=== PATIENT | female | born 1970 | race Caucasian/White ===

== ENCOUNTER 2024-03-29 07:58 | Outpatient (OUT) | payer BC, SELFPAY ==
[2024-03-29 08:25] LABS: Basophils Percent Auto 0.3 % (0.2-2.0); Eosinophils Absolute Auto 0.1 10^3/uL (0.0-0.7); Eosinophils Percent Auto 1.9 % (0.9-7.0); Hemoglobin 13.1 g/dL (12.0-16.0); Immature Granulocytes Abs Auto 0.02 10^3/uL (0.00-0.03); Immature Granulocytes Pct Auto 0.3 % (0.0-0.5); Lymphocytes Absolute Auto 1.5 10^3/uL (1.2-3.8); Mean Corpuscular HGB Conc 35.4 g/dL (29.9-35.2); Mean Corpuscular Hemoglobin 33.1 pg (26.7-34.0); Mean Corpuscular Volume 93.4 fL (81.0-99.0); Mean Platelet Volume 8.6 fL (9.5-13.5); Monocytes Absolute Auto 0.4 10^3/uL (0.3-0.8); Monocytes Percent Auto 7.6 % (1.7-12.0); Neutrophils Absolute Auto 3.7 10^3/uL (1.4-6.5); Neutrophils Percent Auto 63.9 % (43.0-75.0); Platelet Count 271 10^3/uL (150-450); Red Blood Count 3.96 10^6/uL (4.20-5.40); White Blood Count 5.8 10^3/uL (4.0-11.0)
[2024-03-29 08:44] LABS: Alanine Aminotransferase 50 U/L (14-59); Albumin Globulin Ratio 1.1; Albumin Level 4.1 g/dL (3.4-5.0); Alkaline Phosphatase 68 U/L (46-116); Aspartate Amino Transferase 39 U/L (15-37); BUN Creatinine Ratio 18.9; Bilirubin Total 1.6 mg/dL (0.2-1.0); Calcium 9.6 mg/dL (8.5-10.1); Carbon Dioxide 28.9 mmol/L (21.0-32.0); Chloride 95 mmol/L (98-107); Chol HDL Ratio 2.6; Cholesterol 184 mg/dL (<=200); Estimated GFR (African America >60 (>=60); Estimated GFR (Non-African Ame >60 (>=60); Globulin 3.9 g/dL; Glucose 120 mg/dL (74-106); HDL Cholesterol 72 mg/dL (40-60); Potassium 3.9 mmol/L (3.5-5.1); Sodium 135 mmol/L (136-145); Triglycerides 119 mg/dL (<=150); VLDL CHOLESTEROL 23.8 mg/dL
== END 2024-03-29 07:59 | disposition home or self-care (01) ==
PROVIDERS: Visit Provider Internal Medicine
DX: E78.49 Other hyperlipidemia (principal); I10 Essential (primary) hypertension
CPT/HCPCS: 36415; 80053; 80061; 85025

== ENCOUNTER 2024-04-04 09:30 | Outpatient (OUT) | payer BC, SELFPAY ==
[2024-04-04 10:09] LABS: Estimated Average Glucose 111 mg/dL; Glycohemoglobin A1C 5.5 % (4.5-6.2)
== END 2024-04-04 09:31 | disposition home or self-care (01) ==
LOC: LAB 09:30
PROVIDERS: PCP Internal Medicine; Visit Provider Internal Medicine
DX: R73.09 Other abnormal glucose (principal)
CPT/HCPCS: 36415; 83036

== ENCOUNTER 2024-08-29 02:04 | Emergency (ER) | payer BC, SELFPAY ==
[2024-08-29] VITALS (18 sets, daily range): BP systolic 104–107; BP diastolic 67–68; PULSE 59–83; TEMP 37; O2SAT 96–100; BMI 27.8
--- OUTSIDE RECORDS SUMMARY | 2024-08-29 02:23 | XMS_ITS | CCD ---
Author Organization [facility] Care Team Providers Care Instructor Trainer Canine Service Name Role Phone Angi Park Primary Care Provider CARLOS LOPES Referring Unavailable ANGI PARK Primary Care Unavailable SHAIKH MONTOYA Admitting Unavailable VIVIAN, DR ANGI Harrison Primary Care Unavailable SHAIKH MONTOYA Attending Unavailable SHAIKH MONTOYA Consulting Unavailable DR ANGI PARK Primary Care Unavailable AICHHOLZ, FILM OR TAPE LIBRARIAN GERRY Attending Unavailable AICHHOLZ, FILM OR TAPE LIBRARIAN GERRY Consulting Unavailable AICHHOLZ, FILM OR TAPE LIBRARIAN GERRY Admitting Unavailable DR ANGI PARK Primary Care Unavailable SHAIKH MONTOYA Attending Unavailable SHAIKH MONTOYA Consulting Unavailable SHAIKH MONTOYA Admitting Unavailable SHAIKH MONTOYA Primary Care Physician Shaikh Montoya Attending Unavailable Shaikh Montoya Primary Care Unavailable Shaikh Montoya Admitting Unavailable MD Miguelito Montoya Primary Care Provider [phone] MD Miguelito Montoya Attending Provider SHAIKH MONTOYA Attending Unavailable SHAIKH MONTOYA Attending Unavailable SHAIKH MONTOYA Attending Unavailable NORMA VIRK Attending UnavailNORMA Montalvo Attending UnavailShaikh Horton MD Primary Care Provider [phone] MS. NORMA VIRK Primary Care P tong Nkechi Read Referring Unavailable Nkechi Read Attending Unavailable Nkechi Read Admitting Unavailable NORMA VIRK Primary Care Unavailabl e Allergies Allergy Classification Reported Allergen(s) Allergy Type Date of Onset Reaction(s) Facility (2 sources) Codeine; Translations: [codeine] Drug Allergy [facility] Repository (6 sources) Codeine; Translations: [codeine] Drug Allergy Dizziness (finding), Syncope (disorder), Dizziness, Other, Unknown [facility] Medications Current Medications Medication Drug Class(es) Dates Sig (Normalized) Sig (Original) Caltrate 600 with D (3 sources) Start: 01-27-2011 take 1 tablet by mouth once daily Caltrate 600 with D Oral, Daily, tab(s), Refill(s) 0 Start Date: 01/27/11 Status: Ordered Centrum Women's (3 sources) Start: 01-27-2011 Centrum Women's Oral, Daily, Refill(s) 0 Start Date: 01/27/11 Status: Ordered Fish Oil oral capsule (3 sources) Start: 01-27-2011 Fish Oil oral capsule Refill(s) 0 Start Date: 01/27/11 Status: Ordered folic acid 0.4 mg oral tablet (3 sources) Start: 01-27-2011 folic acid 0.4 mg oral tablet Refills(s) 0 Start Date: 01/27/11 Status: Ordered hydroCHLOROthiazide / Lisinopril (3 sources) Thiazide Diuretic, Angiotensin Converting Enzyme Inhibitor Start: 01-27-2011 take 1 tablet by mouth once daily hydrochlorothia zide-lisinopril 12.5 mg-10 mg Oral 1 tab(s), Oral, Daily, tab(s), Refill(s) 0 Start Date: 01/27/11 Status: Ordered Start: 01-27-2011 take 1 tablet by laurence once daily hydrochlorothiazide-lisinopril 12.5 mg-1 0 mg Oral 1 tab(s), Oral, Daily, tab(s), Refill(s) 0 Start Date: 01/27/11 Status: Ordered hydroCHLOROthiazide 25 mg / losartan potassium 100 mg oral tablet (3 sources) Thiazide Diuretic, Angiotensin 2 Receptor Gokul Start: 02-13-2024 take 1 tablet by mouth once daily losartan-hydroCHLOROthiazide (Hyzaar) 100-25 MG tablet Indications: Primary hypertension (CMS/HCC) TAKE 1 TABLET BY MOUTH DAILY 90 tablet 1 02/13/2024 Active phentermine hydrochloride 37.5 mg oral tablet (5 sources) Sympathomimetic Amine Anorectic Start: 07-16-2024 End: 09-15-2024 take 1 tablet by mouth in the morning phentermine (Adipex-P) 37.5 MG tablet Indications: Class 1 obesity due to excess calories without serious comorbidity with body mass index (BMI) of 32.0 to 32.9 in adult Take 1 tablet (37.5 mg) by mouth in the morning. Take before meals. Do not start before August 16, 2024. 30 tablet 08/16/2024 09/15/2024 Active simvastatin 20 mg oral tablet (3 sources) HMG-CoA Reductase Inhibitor Start: 01-23-2024 take 1 tablet by mouth at bedtime simvastatin (Zocor) 20 MG tablet Take 20 mg by mouth at bedtime 01/23/2024 Active Problems Active Problems Problem Classification Problem Date Documented Da te Episodic/Chronic Abdominal pain (3 sources) C/O pelvic pain 01-27-2011 Episodic Disorders of lipid metabolism (8 sources) Hyperlipidemia, unspecified; Translations: [Hyperlipidemia] Onset: 12-12-2021 Chronic Essential hypertension (11 sources) Essential (primary) hypertension; Translations: [Hypertensive disorder] Onset: 09-27-2021 Chronic Menstrual disorders (3 sources) Menorrhagia 01-02-2014 Chronic Osteoarthritis (1 source) Osteoarthritis of left patellofemoral joint; Translations: [Osteoarthritis of left patellofemoral joint] Other gastrointestinal disorders (3 sources) Pelvic mass 01-27-2011 Episodic Other nutritional; endocrine; and metabolic disorders (7 sources) Obesity caused by energy imbalance; Translations: [Class 1 obesity due to excess calories without serious comorbidity with body mass index (BMI) of 30.0 to 30.9 in adult] Onset: 03-10-2024 04-17-2024 Chronic Other screening for suspected conditions (not mental disorders or infectious disease) (1 source) Encounter for screening for diabetes mellitus; Translations: [ENCOUNTER FOR SCREENING FOR DM] Onset: 09-27-2021 Episodic Past or Other Problems Problem Classification Problem Date Documented Da te Episodic/Chronic Other ear and sense organ disorders (3 sources) Ear sensations - finding; Translations: [Other specified disorders of right ear] Onset: 03-10-2024 03-10-2024 Episodic Results Test Name Value Interpretation Reference Range Facility [facility] Mamm Screen w/CAD if perf and 3D [place] 08-16-2024 MA Mamm Screen w/CAD if perf and 3D [place] Exam Date/Time: 08/15/2024 08:48 EDT Reason for Exam: Z12.31 Report IMPRESSION: BIRADS 1 NEGATIVE, NORMAL INTERVAL FOLLOW-UP Follow-up: 12 MONTH RECALL Density: Category B - Scattered areas of fibroglandular density. Vascular calcifications: Absent. EXAM: [place] Mamm Screen w/CAD if perf and 3D [place] DATE: 08/15/2024 7:27 AM CLINICAL HISTORY: Z12.31. COMPARISONS: 08/04/2023, 05/12/2022, 12/09/2020, and 08/11/2019. TECHNIQUE: Routine full-field digital mammograms and 3D breast tomosynthesis were obtained of both breasts. FINDINGS: There are no developing densities, suspicious microcalcifications, or areas of architectural distortion identified on the current study. No significant changes are identified from the prior studies, given differences in technique and positioning. Dense Breast: No. CAD analysis was performed and used in the interpretation. Board Certified Radiologists. Accredited by the ACR and FDA. MAMMOGRAPHY IS VERY IMPORTANT TO YOUR HEALTH. THE CURRENT [employer] GUIDELINES RECOMMENDS ANNUAL MAMMOGRAPHY BEGINNING AT AGE 40. THIS FACILITY UTILIZES A REMINDER SYSTEM TO ENSURE ALL PATIENTS RECEIVE REMINDER NOTIFICATIONS AT THE APPROPRIATE TIME BASED ON THE RECOMMENDATIONS OF THIS EXAM. Report Ordering Provider: Nkechi Read FINAL REPORT Dictated: 08/16/2024 9:02 am Dev Denis MD Signed (Electronic Signature): 08/16/2024 9:02 am Signed by: Dev Denis MD Transcribed by: LIZANDRO Technologist: [facility] Assessment: BI-RADS Category 1-Negative Recommendation: Normal interval follow-up Normal [facility] Albumin [Mass/volume] in Ser um or PlasmaOrdered By: Shaikh Jan on 11-02-2022 Albumin [Mass/Vol] 4.3 g/dL 3.2-5.5 [place] Basophils Auto (Bld) [#/Vol] Ordered By: Shaikh Jan on 11-02-2022 Basophils (Bld) [#/Vol] 0.0 10*3/uL 0.0-0.2 [facility] Basophils/100 WBC Auto (Bld) Ordered By: Shaikh Jan on 11-02-2022 Basophils/100 WBC (Bld) 0.5 % . F [facility] Cholesterol [Mass/volume] in Serum or PlasmaOrdered By: Shaikh Jan on 11-02-2022 Cholesterol [Mass/Vol] 157 mg/dL 140-200 [facility] Comment on above: Chol less than 200 m g/dl low riskChol 201-239 mg/dl borderline riskChol 240 mg/dl and greater high risk Cholesterol in LDL Calc [Mas s/Vol]Ordered By: Shaikh Jan on 11-02-2022 Cholesterol in LDL [Mass/Vol] 84 mg/dL 0-100 [facility] Comment on above: LDL ATP III CLASSIFI CATIONLDL less than 100 mg/dL OptimalLDL 100-129 mg/dL Near or above optimalLDL 130-159 mg/dL Borderline highLDL 160-189 mg/dL HighLDL greater than 189 mg/dL Very high Cholesterol in VLDL Calc [Ma ss/Vol]Ordered By: Shaikh Jan on 11-02-2022 Cholesterol in VLDL [Mass/Vol] 22 mg/dL [facility] Complete Blood Count Auto Di ffon 11-02-2022 Basophils (Bld) [#/Vol] 0.0 10*3/uL Normal 0.0-0.2 [facility] Comment on above: Result Comment: PERF ORMED BY: [facility] [address] [place] [address] PATHOLOGIST CONTRACTING SUPPORT SPECIALIST NAKUL DOWELL M.D. Performed By: #### L IPID, CBC, CMP #### [facility] [address] [place] [address] [place] Basophils/100 WBC (Bld) 0.5 % Normal . F [facility] Comment on above: Performed By: #### L IPID, CBC, CMP #### [facility] [address] [place] [address] [place] Eosinophils (Bld) [#/Vol] 0.1 10*3/uL Normal 0.0-0.45 [facility] Comment on above: Performed By: #### L IPID, CBC, CMP #### [address] Eosinophils/100 WBC (Bld) 1.2 % Normal . [facility] Comment on above: Performed By: #### L IPID, CBC, CMP #### [address] Erythrocyte distribution width (RBC) [Ratio] 12.7 % Normal 11.9-15.3 [facility] Comment on above: Performed By: #### L IPID, CBC, CMP #### [address] Hematocrit (Bld) [Volume fraction] 40.2 % Normal 34.0-46.4 [facility] Comment on above: Performed By: #### L IPID, CBC, CMP #### [address] Hemoglobin (Bld) [Mass/Vol] 13.8 g/dL Normal 11.8-15.4 [facility] Comment on above: Performed By: #### L IPID, CBC, CMP #### [address] Lymphocytes (Bld) [#/Vol] 3.3 10*3/uL Normal 1.00-4.8 [facility] Comment on above: Performed By: #### L IPID, CBC, CMP #### [address] Lymphocytes/100 WBC (Bld) 41.8 % Normal . [facility] Comment on above: Performed By: #### L IPID, CBC, CMP #### [address] MCH (RBC) [Entitic mass] 32.9 pg Normal 24.7-34.3 [facility] Comment on above: Performed By: #### L IPID, CBC, CMP #### [address] MCV (RBC) [Entitic vol] 96.1 fL Normal 80-[address] [facility] Comment on above: Performed By: #### L IPID, CBC, CMP #### [address] Mean Corpuscular HGB Conc 34.2 g/dL Normal 32.0-35.0 [facility] Comment on above: Performed By: #### L IPID, CBC, CMP #### [address] Monocytes (Bld) [#/Vol] 0.5 10*3/uL Normal 0.0-0.8 [facility] Comment on above: Performed By: #### L IPID, CBC, CMP #### [address] Monocytes/100 WBC (Bld) 6.3 % Normal . F [facility] Comment on above: Performed By: #### L IPID, CBC, CMP #### [address] Neutrophils (Bld) [#/Vol] 4.0 10*3/uL Normal 1.8-7.7 [facility] Comment on above: Performed By: #### L IPID, CBC, CMP #### [address] Neutrophils/100 WBC (Bld) 50.2 % Normal . [facility] Comment on above: Performed By: #### L IPID, CBC, CMP #### [address] NRBC% 0.1 /100{WBC} Normal 0-0.5 [facility] Comment on above: Performed By: #### L IPID, CBC, CMP #### [address] Platelet mean volume (Bld) [Entitic vol] 7.0 fL Normal 6.3-10.7 [facility] Comment on above: Performed By: #### L IPID, CBC, CMP #### [address] Platelets (Bld) [#/Vol] 307 10*3/uL Normal 150-450 [facility] Comment on above: Performed By: #### L IPID, CBC, CMP #### [address] RBC (Bld) [#/Vol] 4.18 10*6/uL Normal 3.60-5.00 [facility] Comment on above: Performed By: #### L IPID, CBC, CMP #### [address] WBC (Bld) [#/Vol] 7.9 10*3/uL Normal 3.8-11.6 [place] Comment on above: Performed By: #### L IPID, CBC, CMP #### [address] Comprehensive Metabolic Pane kenzie 11-02-2022 Albumin [Mass/Vol] 4.3 g/dL Normal 3.2-5.5 [place] Comment on above: Performed By: #### L IPID, CBC, CMP #### [address] Albumin/Globulin [Mass ratio] 1.8 {ratio} Normal [facility] Comment on above: Performed By: #### L IPID, CBC, CMP #### [address] ALP [Catalytic activity/Vol] 61 U/L Normal 32-92 [facility] Comment on above: Performed By: #### L IPID, CBC, CMP #### [address] ALT [Catalytic activity/Vol] 32 U/L Normal 10-60 [facility] Comment on above: Performed By: #### L IPID, CBC, CMP #### [address] Anion gap [Moles/Vol] 13.1 mmol/L Normal 6.0-15.0 [facility] Comment on above: Performed By: #### L IPID, CBC, CMP #### [facility] [address] [place] [id number] [place] AST [Catalytic activity/Vol] 25 U/L Normal 10-42 [facility] Comment on above: Performed By: #### L IPID, CBC, CMP #### [facility] [address] [place] [address] [place] Bilirubin [Mass/Vol] 1.3 mg/dL High 0.3-1.2 [facility] Comment on above: Result Comment: Samp les from patients who have taken Naproxen have shown spurious elevation in Total Bilirubin levels. A metabolite of Naproxen, O-desmethylnaproxen, has been shown to interfere with the Jendrassik-Grof method for measuring Total Bilirubin. Performed By: #### L IPID, CBC, CMP #### [facility] [address] [place] [address] [place] Calcium [Mass/Vol] 9.5 mg/dL Normal 8.2-10.2 [place] Comment on above: Performed By: #### L IPID, CBC, CMP #### [facility] [address] [place] [address] [place] Chloride [Moles/Vol] 101 mmol/L Normal 95-114 [facility] Comment on above: Performed By: #### L IPID, CBC, CMP #### [facility] [address] [place] [id number] [place] CO2 [Moles/Vol] 24.8 mmol/L Normal 22.0-30.0 [facility] Comment on above: Performed By: #### L IPID, CBC, CMP #### [facility] [address] [place] [address] [place] Creatinine [Mass/Vol] 0.69 mg/dL Normal 0.44-1.03 [facility] Comment on above: Performed By: #### L IPID, CBC, CMP #### [facility] [address] [place] [id number] [place] Estimated GFR ( Deysi > 60 Normal [facility] Comment on above: Result Comment: GFR estimated reference range: According to KDOQI guidelines, <60 ml/min/1.73m2 is sufficient to diagnose a patient with chronic kidney disease. Performed By: #### L IPID, CBC, CMP #### [address] Estimated GFR (Non- Am > 60 Normal [facility] Comment on above: Performed By: #### L IPID, CBC, CMP #### [facility] [address] Globulin (S) [Mass/Vol] 2.4 g/dL Normal F [facility] Comment on above: Performed By: #### L IPID, CBC, CMP #### [address] Glucose [Mass/Vol] 75 mg/dL Normal 70-100 [place] Comment on above: Result Comment: [place] Glucose Reference Range is dependent on time and content of last meal. Glucose of more than 200 mg/dL in a nonstressed, ambulatory subject supports the diagnosis of Diabetes Mellitus. ADA recommended reference range Performed By: #### L IPID, CBC, CMP #### [address] Potassium [Moles/Vol] 3.9 mmol/L Normal 3.5-5.1 [facility] Comment on above: Performed By: #### L IPID, CBC, CMP #### [address] Protein [Mass/Vol] 6.7 g/dL Normal 6.1-7.9 [place] Comment on above: Performed By: #### L IPID, CBC, CMP #### [address] Sodium [Moles/Vol] 135 mmol/L Low 136-146 [place] Comment on above: Performed By: #### L IPID, CBC, CMP #### [facility] [address] [place] [address] Urea nitrogen [Mass/Vol] 13 mg/dL Normal 9-23 [facility] Comment on above: Performed By: #### L IPID, CBC, CMP #### [facility] [address] Creatinine and Glomerular fi ltration rate.predicted panel (S/P/Bld)Ordered By: Shaikh Jan on 11-02-2022 Creatinine [Mass/Vol] 0.69 mg/dL 0.44-1.03 [facility] Eosinophils Auto (Bld) [#/Vo l]Ordered By: Shaikh Jan on 11-02-2022 Eosinophils (Bld) [#/Vol] 0.1 10*3/uL 0.0-0.45 [facility] Eosinophils/100 WBC Auto (Bl d)Ordered By: Shaikh Jan on 11-02-2022 Eosinophils/100 WBC (Bld) 1.2 % . [facility] Erythrocyte distribution wid th Auto (RBC) [Ratio]Ordered By: Shaikh Jan on 11-02-2022 Erythrocyte distribution width (RBC) [Ratio] 12.7 % 11.9-15.3 [facility] Estimated glomerular filtrat ion rate (GFR) non- AmericanOrdered By: Shaikh Jan on 11-02-2022 GFR/1.73 sq M.predicted among non-blacks MDRD (S/P/Bld) [Vol rate/Area] > 60 mL/Min [facility] Globulin Calc (S) [Mass/Vol] Ordered By: Shaikh Jan on 11-02-2022 Globulin (S) [Mass/Vol] 2.4 g/dL F [facility] Hematocrit Auto (Bld) [Volum e fraction]Ordered By: Shaikh Jan on 11-02-2022 Hematocrit (Bld) [Volume fraction] 40.2 % 34.0-46.4 [facility] Hemoglobin [Mass/volume] in BloodOrdered By: Shaikh Jan on 11-02-2022 Hemoglobin (Bld) [Mass/Vol] 13.8 g/dL 11.8-15.4 [facility] Leukocytes [#/volume] correc barrett for nucleated erythrocytes in Blood by Automated counOrdered By: Shaikh Jan on 11-02-2022 WBC corrected for nucl RBC Auto (Bld) [#/Vol] 7.9 10*3/uL 3.8-11.6 [facility] Lipid Panelon 11-02-2022 Cholesterol [Mass/Vol] 157 mg/dL Normal 140-200 [facility] Comment on above: Result Comment: Chol less than 200 mg/dl low risk Chol 201-239 mg/dl borderline risk Chol 240 mg/dl and greater high risk Performed By: #### L IPID, CBC, CMP #### [facility] [address] Cholesterol in HDL [Mass/Vol] 50 mg/dL Normal 35-85 [facility] Comment on above: Result Comment: HDL CHOL ATP-III CLASSIFICATION Cardiovascular Risk HDL > or equal to 60 mg/dL LOW HDL < 40 mg/dL HIGH Performed By: #### L IPID, CBC, CMP #### [facility] [address] Cholesterol.total/Soo sterol in HDL [Mass ratio] 3.1 {ratio} Normal <5.0 [facility] Comment on above: Result Comment: PERF ORMED BY: [place] [address] PATHOLOGIST CONTRACTING SUPPORT SPECIALIST NAKUL DOWELL M.D. Performed By: #### L IPID, CBC, CMP #### [facility] [address] LDL Cholesterol,Calculated 84 mg/dL Normal 0-100 [facility] Comment on above: Result Comment: LDL ATP III CLASSIFICATION LDL less than 100 mg/dL Optimal LDL 100-129 mg/dL Near or above optimal LDL 130-159 mg/dL Borderline high LDL 160-189 mg/dL High LDL greater than 189 mg/dL Very high Performed By: #### L IPID, CBC, CMP #### [facility] [address] [place] [address] [place] Triglyceride w/Reflex 114 mg/dL Normal 35-149 [facility] Comment on above: Result Comment: TRIG ATP III CLASSIFICATION TRIG less than 150 mg/dL Normal TRIG 150-199 mg/dL Borderline high TRIG 200-500 mg/dL High TRIG greater than 500 mg/dL Very high Standard traceable to the Center for Disease Conrtrol and Prevention (CDC) test method. Performed By: #### L IPID, CBC, CMP #### [facility] [address] VLDL CHOLESTEROL 22 mg/dL Normal [facility] Comment on above: Performed By: #### L IPID, CBC, CMP #### [facility] [address] Lymphocytes Auto (Bld) [#/Vo l]Ordered By: Shaikh Jan on 11-02-2022 Lymphocytes (Bld) [#/Vol] 3.3 10*3/uL 1.00-4.8 [facility] Lymphocytes/100 WBC Auto (Bl d)Ordered By: Shaikh Jan on 11-02-2022 Lymphocytes/100 WBC (Bld) 41.8 % . [facility] MCH Auto (RBC) [Entitic mass ]Ordered By: Shaikh Jan on 11-02-2022 MCH (RBC) [Entitic mass] 32.9 pg 24.7-34.3 [facility] MCHC Auto (RBC) [Mass/Vol]Or dered By: Shaikh Jan on 11-02-2022 MCHC (RBC) [Mass/Vol] 34.2 g/dL 32.0-35.0 [facility] MCV Auto (RBC) [Entitic vol] Ordered By: Shaikh Jan on 11-02-2022 MCV (RBC) [Entitic vol] 96.1 fL 80-[address] [facility] Monocytes Auto (Bld) [#/Vol] Ordered By: Shaikh Jan on 11-02-2022 Monocytes (Bld) [#/Vol] 0.5 10*3/uL 0.0-0.8 [facility] Monocytes/100 WBC Auto (Bld) Ordered By: Shaikh Jan on 11-02-2022 Monocytes/100 WBC (Bld) 6.3 % . F [facility] Neutrophils Auto (Bld) [#/Vo l]Ordered By: Shaikh Jan on 11-02-2022 Neutrophils (Bld) [#/Vol] 4.0 10*3/uL 1.8-7.7 [facility] Neutrophils/100 WBC Auto (Bl d)Ordered By: Shaikh Jan on 11-02-2022 Neutrophils/100 WBC (Bld) 50.2 % . [facility] No Panel InformationOrdered By: Shaikh Jan on 11-02-2022 Estimated GFR () > 60 mL/Min [facility] Comment on above: GFR estimated refere nce range: According to KDOQI guidelines, <60 ml/min/1.73m2 is sufficient to diagnose a patient with chronic kidney disease. Pharmacy Creatinine Clearance (Chem N/A [facility] Nucleated erythrocytes [Pres ence] in Blood by Automated countOrdered By: Shaikh Jan on 11-02-2022 Nucleated RBC Auto Ql (Bld) 0.1 /100{WBC} 0-0.5 [facility] Platelet mean volume Auto (B ld) [Entitic vol]Ordered By: Shaikh Jan on 11-02-2022 Platelet mean volume (Bld) [Entitic vol] 7.0 fL 6.3-10.7 [facility] Platelets Auto (Bld) [#/Vol] Ordered By: Shaikh Jan on 11-02-2022 Platelets (Bld) [#/Vol] 307 10*3/uL 150-450 [facility] Protein [Mass/volume] in Ser um or PlasmaOrdered By: Shaikh Jan on 11-02-2022 Protein [Mass/Vol] 6.7 g/dL 6.1-7.9 [place] RBC Auto (Bld) [#/Vol]Ordere d By: Shaikh Jan on 11-02-2022 RBC (Bld) [#/Vol] 4.18 10*6/uL 3.60-5.00 [facility] Serum or plasma alanine lynch otransferase measurement without P-5'-P (enzymatic activiOrdered By: Shaikh Jan on 11-02-2022 ALT No additional P-5'-P [Catalytic activity/Vol] 32 U/L 10-60 [facility] Serum or plasma albumin/glob ulin mass ratioOrdered By: Shaikh Jan on 11-02-2022 Albumin/Globulin [Mass ratio] 1.8 {ratio} [facility] Serum or plasma alkaline beatrice sphatase measurement (enzymatic activity/volume)Ordered By: Shaikh Jan on 11-02-2022 ALP [Catalytic activity/Vol] 61 U/L 32-92 [facility] Serum or plasma anion gap de terminationOrdered By: Shaikh Jan on 11-02-2022 Anion gap [Moles/Vol] 13.1 mmol/L 6.0-15.0 [facility] Serum or plasma aspartate am inotransferase measurement (enzymatic activity/volume)Ordered By: Shaikh Jan on 11-02-2022 AST [Catalytic activity/Vol] 25 U/L 10-42 [facility] Serum or plasma calcium [place] urement (mass/volume)Ordered By: Shaikh Jan on 11-02-2022 Calcium [Mass/Vol] 9.5 mg/dL 8.2-10.2 [place] Serum or plasma chloride jose d surement (moles/volume)Ordered By: Shaikh Jan on 11-02-2022 Chloride [Moles/Vol] 101 mmol/L 95-114 [facility] Serum or plasma glucose [place] urement (mass/volume)Ordered By: Shaikh Jan on 11-02-2022 Glucose [Mass/Vol] 75 mg/dL 70-100 [place] Comment on above: ADA recommended refe rence rangeRandom Glucose Reference Range is dependent on time and content of last meal. Glucose of more than 200 mg/dL in a nonstressed, ambulatory subject supports the diagnosis of Diabetes Mellitus. Serum or plasma high density lipoprotein (HDL) cholesterol measurementOrdered By: Shaikh Jan on 11-02-2022 Cholesterol in HDL [Mass/Vol] 50 mg/dL 35-85 [facility] Comment on above: HDL CHOL ATP-III CLA SSIFICATION Cardiovascular RiskHDL > or equal to 60 mg/dL LOWHDL < 40 mg/dL HIGH Serum or plasma potassium me asurement (moles/volume)Ordered By: Shaikh Jan on 11-02-2022 Potassium [Moles/Vol] 3.9 mmol/L 3.5-5.1 [facility] Serum or plasma sodium measu rement (moles/volume)Ordered By: Shaikh Jan on 11-02-2022 Sodium [Moles/Vol] 135 mmol/L 136-146 [place] Serum or plasma total biliru bin measurement (mass/volume)Ordered By: Shaikh Jan on 11-02-2022 Bilirubin [Mass/Vol] 1.3 mg/dL 0.3-1.2 [facility] Comment on above: Samples from patient s who have taken Naproxen have shown spurious elevation in Total Bilirubin levels. A metabolite of Naproxen, O-desmethylnaproxen, has been shown to interfere with the Javon-Keyla method for measuring Total Bilirubin. Serum or plasma total carbon dioxide measurement (moles/volume)Ordered By: Shaikh Jan on 11-02-2022 CO2 [Moles/Vol] 24.8 mmol/L 22.0-30.0 [facility] Serum or plasma total choles terol/high density lipoprotein (HDL) cholesterol mass ratOrdered By: Shaikh Jan on 11-02-2022 Cholesterol.total/Soo sterol in HDL [Mass ratio] 3.1 {ratio} <5.0 [facility] Serum or plasma urea nitroge n measurement (mass/volume)Ordered By: Shaikh Jan on 11-02-2022 Urea nitrogen [Mass/Vol] 13 mg/dL 9-23 [facility] Triglyceride [Mass/volume] i n Serum or PlasmaOrdered By: Shaikh Jan on 11-02-2022 Triglyceride [Mass/Vol] 114 mg/dL 35-[address] [facility] Comment on above: TRIG ATP III CLASSIF ICATIONTRIG less than 150 mg/dL NormalTRIG 150-199 mg/dL Borderline highTRIG 200-500 mg/dL High TRIG greater than 500 mg/dL Very highStandard traceable to the Center for Disease Conrtrol and Prevention (CDC) test method. WBC Auto (Bld) [#/Vol]Ordere d By: Shaikh Jan on 11-02-2022 WBC (Bld) [#/Vol] 7.9 10*3/uL 3.8-11.6 [place] US Venous Reflux/Insuff, [place] Loweron 10-31-2022 US Venous Reflux/Insuff, [place] Lower RIGHT LEFT DIAMETER RELUX (msec) DIAMETER REFLUX 1.13 CFV1.38 .52SF/GSVJunc .75 1.29 SFV PROX1.49 .95 SFV MID .89 .69SFV DIS .75 .66 POP.79 .61 GSV PROX .70 .32 GSV MID .37 .39GSV DIST.30 .29GSV KNEE.25 .24GSV CALF.24 .24GSV MID.18 .29GSV ANKLE ..24 .26SSV JUNCTION .27 .22 SSV PROX .28 IMPRESSION: 1. No evidence of deep venous thrombosis. 2. No significant reflux. Report reported and signed by Joseph Leslie on 10/31/2022 1301 Normal [facility] US Venous, Unilat, Lower Ext Lefton 10-31-2022 US Venous, Unilat, Lower Ext Left FINDINGS: The deep venous system of the left lower extremity exhibits full compressibility and normal flow augmentation. These specifically include the common femoral, superficial femoral, popliteal, and visualized anterior tibialis, posterior tibialis, and peroneal veins. No evidence of deep venous thrombosis is present. Greater saphenous vein is patent. No cystic or soft tissue mass in the popliteal fossa. IMPRESSION: No evidence of deep or superficial venous thrombosis Report reported and signed by Joseph Leslie on 10/31/2022 1030 Normal [facility] LIPID PROFILEon 12-12-2021 CHOL-HDL RATIO NORM SEE BELOW Normal [facility] Comment on above: Result Comment: 3.3 - 4.4 LOW RISK 4.4 - 7.1 AVERAGE RISK 7.1 - 11.0 MODERATE RISK >11.0 HIGH RISK Performed By: #### A ST, LIPID, ALT #### [facility] [address] [address] [address] Edna Stark Cholesterol [Mass/Vol] 160 mg/dL Normal <=200 Th [facility] Comment on above: Performed By: #### A ST, LIPID, ALT #### [facility] [address] [address] [address] Edna Stark Cholesterol in HDL [Mass/Vol] 55 mg/dL Normal [facility] Comment on above: Performed By: #### A ST, LIPID, ALT #### [facility] [address] [address] [address] Edna Stark Cholesterol in LDL [Mass/Vol] 79.2 mg/dL Normal [facility] Comment on above: Performed By: #### A ST, LIPID, ALT #### [facility] [address] [address] [address] Edna Stark Cholesterol.total/Soo sterol in HDL [Mass ratio] 2.9 {ratio} Normal [facility] Comment on above: Performed By: #### A ST, LIPID, ALT #### [facility] [address] [address] [address] Edna Stark HDL NORMAL > or = 60 mg/dl - LO W CARDIOVASCULAR RISK <40 mg/dl - HIGH CARDIOVASCULAR RISK Normal [facility] Comment on above: Performed By: #### A ST, LIPID, ALT #### [facility] [address] [address] [address] Edna Stark LDL CALC NORMAL SEE BELOW Normal [facility] Comment on above: Result Comment: <100 mg/dl OPTIMAL 100 - 129 mg/dl NEAR OR ABOVE OPTIMAL 130 - 159 mg/dl BORDERLINE HIGH 160 - 189 mg/dl HIGH >190 mg/dl VERY HIGH Performed By: #### A ST, LIPID, ALT #### [facility] [address] [address] [address] Edna Stark Triglyceride [Mass/Vol] 129 mg/dL Normal <=150 T [facility] Comment on above: Performed By: #### A ST, LIPID, ALT #### [facility] [address] [address] [address] Edna Stark VLDL CALC 25.8 mg/dL Normal [facility] Comment on above: Performed By: #### A ST, LIPID, ALT #### [facility] [address] [address] [address] Edna Stark PROF CHEM 8 (BAS METB)on Anion gap [Moles/Vol] 14.0 mmol/L Normal Th [facility] Comment on above: Performed By: #### B MP #### [facility] [address] [address] [address] Edna Stark Calcium [Mass/Vol] 9.0 mg/dL Normal 8.4-10.2 [facility] Comment on above: Performed By: #### B MP #### [facility] [address] [address] [address] Edna Stark Chloride [Moles/Vol] 103 mmol/L Normal 98-107 [facility] Comment on above: Performed By: #### B MP #### [facility] [address] [address] [address] Edna Stark CO2 [Moles/Vol] 26.5 mmol/L Normal 22.0-30.0 [facility] Comment on above: Performed By: #### B MP #### [facility] [address] [place] [address] Dr. Edna Stark Creatinine [Mass/Vol] 0.62 mg/dL Normal 0.52-1.04 [facility] Comment on above: Performed By: #### B MP #### [facility] [address] [address] [address] Edna Stark EGFR-AF SAO TOMEAN >60 Normal >=60 [facility] Comment on above: Performed By: #### B MP #### [facility] [address] [address] [address] Edna Stark EGFR-NON AF SAO TOMEAN >60 Normal >=60 [facility] Comment on above: Performed By: #### B MP #### [facility] [address] [place] [address] Dr. Edna Stark Glucose [Mass/Vol] 88 mg/dL Normal 74-106 [facility] Comment on above: Performed By: #### B MP #### [facility] [address] [address] [address] Edna Stark Potassium [Moles/Vol] 3.5 mmol/L Normal 3.4-5.0 [facility] Comment on above: Performed By: #### B MP #### [facility] [address] [address] [address] Edna Strak Sodium [Moles/Vol] 140 mmol/L Normal 137-145 [facility] Comment on above: Performed By: #### B MP #### [facility] [address] [address] [address] Edna Stark Urea nitrogen [Mass/Vol] 12.0 mg/dL Normal 7.0-17.0 [facility] Comment on above: Performed By: #### B MP #### [facility] [address] [place] [address] Dr. Edna Stark Urea nitrogen/Creatinine [Mass ratio] 19.4 mg/mg Normal [facility] Comment on above: Performed By: #### B MP #### [facility] [address] [place] [address] Dr. Edna Knight 12-12-2021 AST [Catalytic activity/Vol] 28 U/L Normal 14-36 [facility] Comment on above: Performed By: #### A ST, LIPID, ALT #### [facility] [address] [place] [address] Dr. Edna SHANNONPTon 12-12-2021 ALT [Catalytic activity/Vol] 55 U/L Critically high 9-52 [facility] Comment on above: Performed By: #### A ST, LIPID, ALT #### [facility] [address] [place] [address] Dr. Edna Stark CBC AUTO DIFFon 09-21-2021 BASO # 0.0 103/ul Normal 0.0-0.1 [facility] Comment on above: Performed By: #### C BC #### [facility] [address] [place] [address] Dr. Edna Stark Basophils/100 WBC (Bld) 0.4 % Normal 0.2-2.0 [facility] Comment on above: Performed By: #### C BC #### [facility] [address] [place] [address] Dr. Edna Stark EO # 0.1 103/ul Normal 0.0-0.7 [facility] Comment on above: Performed By: #### C BC #### [facility] [address] [place] [address] Dr. Edna Stark Eosinophils/100 WBC (Bld) 1.3 % Normal 0.9-7.0 [facility] Comment on above: Performed By: #### C BC #### [facility] [address] [place] [address] Dr. Edna Stark Erythrocyte distribution width (RBC) [Ratio] 12.1 % Normal 11.0-15.0 [facility] Comment on above: Performed By: #### C BC #### [facility] [address] [place] [address] Dr. Edna Stark Hematocrit (Bld) [Volume fraction] 39.5 % Normal 36.0-48.0 [facility] Comment on above: Performed By: #### C BC #### [facility] [address] [place] [address] Dr. Edna Stark Hemoglobin (Bld) [Mass/Vol] 13.2 g/dL Normal 12.0-16.0 [facility] Comment on above: Performed By: #### C BC #### [facility] [address] [place] [address] Dr. Edna Stark IG # 0.02 10e3/ul Normal 0.00-0.03 [facility] Comment on above: Performed By: #### C BC #### [facility] [address] [place] [address] Dr. Edna Stark IG % 0.3 % Normal 0.0-0.5 [facility] Comment on above: Performed By: #### C BC #### [facility] [address] [place] [address] Dr. Edna Stark LYMPH # 2.4 103/ul Normal 1.2-3.8 [facility] Comment on above: Performed By: #### C BC #### [facility] [address] [place] [address] Dr. Edna Stark Lymphocytes/100 WBC (Bld) 35.8 % Normal 20.5-60.0 [facility] Comment on above: Performed By: #### C BC #### [facility] [address] [place] [address] Dr. Edna Stark MANUAL DIFF REQ NO Normal [facility] Comment on above: Performed By: #### C BC #### [facility] [address] [place] [address] Dr. Edna Stark MCH (RBC) [Entitic mass] 32.6 pg Normal 26.7-34.0 [facility] Comment on above: Performed By: #### C BC #### [facility] [address] [place] [address] Dr. Edna Stark MCHC (RBC) [Mass/Vol] 33.4 g/dL Normal 29.9-35.2 [facility] Comment on above: Performed By: #### C BC #### [facility] [address] [place] [address] Dr. Edna Stark MCV (RBC) [Entitic vol] 97.5 fL Normal 81.0-99.0 [facility] Comment on above: Performed By: #### C BC #### [facility] [address] [place] [address] Dr. Edna Stark MONO # 0.5 103/ul Normal 0.3-0.8 [facility] Comment on above: Performed By: #### C BC #### [facility] [address] [place] [address] Dr. Edna Stark Monocytes/100 WBC (Bld) 7.2 % Normal 1.7-12.0 [facility] Comment on above: Performed By: #### C BC #### [facility] [address] [place] [address] Dr. Edna Stark NEUT # 3.7 103/ul Normal 1.4-6.5 [facility] Comment on above: Performed By: #### C BC #### [facility] [address] [address] [address] Edna Stark Neutrophils/100 WBC (Bld) 55.0 % Normal 43.0-75.0 [facility] Comment on above: Performed By: #### C BC #### [facility] [address] [address] [address] Edna Stark Platelet mean volume (Bld) [Entitic vol] 9.2 fL Critically low 9.5-13.5 [facility] Comment on above: Performed By: #### C BC #### [facility] [address] [address] [address] Edna Stark PLT 270 103/ul Normal 150-450 [facility] Comment on above: Performed By: #### C BC #### [facility] [address] [address] [address] Edna Stark RBC 4.05 106/ul Critically low 4.20-5.40 [facility] Comment on above: Performed By: #### C BC #### [facility] [address] [address] [address] Edna Stark WBC 6.7 103/ul Normal 4.0-11.0 [facility] Comment on above: Performed By: #### C BC #### [facility] [address] [address] [address] Edna Stark GLYCOHEMOGLOBIN A1Con 2020 ADA RECOMMENDATION ADA THERAPEUTIC TARGET 6.0 - 7.0 ACTION SUGGESTED > 7.0 Normal [facility] Comment on above: Performed By: #### A 1C #### [facility] [address] [address] [address] Edna Stark Glucose [Mass/Vol] 114 mg/dL Normal [facility] Comment on above: Performed By: #### A 1C #### [facility] [address] [address] [address] Edna Stark HbA1c (Bld) [Mass fraction] 5.6 % Normal <=6.0 [facility] Comment on above: Performed By: #### A 1C #### [facility] [address] [address] [address] Edna Stark LIPID PROFILEon 09-21-2021 CHOL-HDL RATIO NORM SEE BELOW Normal [facility] Comment on above: Result Comment: 3.3 - 4.4 LOW RISK 4.4 - 7.1 AVERAGE RISK 7.1 - 11.0 MODERATE RISK >11.0 HIGH RISK Performed By: #### C MP, LIPID #### [facility] [address] [address] [address] Edna Stark Cholesterol [Mass/Vol] 239 mg/dL Critically high <=200 [facility] Comment on above: Performed By: #### C MP, LIPID #### [facility] [address] [place] [address] Dr. Edna Stark Cholesterol in HDL [Mass/Vol] 47 mg/dL Normal [facility] Comment on above: Performed By: #### C MP, LIPID #### [facility] [address] [address] [address] Edna Stark Cholesterol in LDL [Mass/Vol] 145.4 mg/dL Normal [facility] Comment on above: Performed By: #### C MP, LIPID #### [facility] [address] [place] [address] Dr. Edna Stark Cholesterol.total/Soo sterol in HDL [Mass ratio] 5.1 {ratio} Normal [facility] Comment on above: Performed By: #### C MP, LIPID #### [facility] [address] [address] [address] Edna Stark HDL NORMAL > or = 60 mg/dl - LO W CARDIOVASCULAR RISK <40 mg/dl - HIGH CARDIOVASCULAR RISK Normal [facility] Comment on above: Performed By: #### C MP, LIPID #### [facility] [address] [place] [address] Dr. Edna Stark LDL CALC NORMAL SEE BELOW Normal [facility] Comment on above: Result Comment: <100 mg/dl OPTIMAL 100 - 129 mg/dl NEAR OR ABOVE OPTIMAL 130 - 159 mg/dl BORDERLINE HIGH 160 - 189 mg/dl HIGH >190 mg/dl VERY HIGH Performed By: #### C MP, LIPID #### [facility] [address] [place] [address] Dr. Edna Stark Triglyceride [Mass/Vol] 233 mg/dL Critically high <=150 [facility] Comment on above: Performed By: #### C MP, LIPID #### [facility] [address] [address] [address] Edna Stark VLDL CALC 46.6 mg/dL Normal [facility] Comment on above: Performed By: #### C MP, LIPID #### [facility] [address] [address] [address] Edna Stark PROF 14(COMP METB)on 021 Albumin [Mass/Vol] 3.9 g/dL Normal 3.5-5.0 [facility] Comment on above: Performed By: #### C MP, LIPID #### [facility] [address] [place] [address] Dr. Edna Stark Albumin/Globulin [Mass ratio] 1.0 {ratio} Normal [facility] Comment on above: Performed By: #### C MP, LIPID #### [facility] [address] [place] [address] Dr. Edna Strak ALP [Catalytic activity/Vol] 74 U/L Normal 38-126 [facility] Comment on above: Performed By: #### C MP, LIPID #### [facility] [address] [place] [address] Dr. Edna Stark ALT [Catalytic activity/Vol] 39 U/L Normal 9-52 [facility] Comment on above: Performed By: #### C MP, LIPID #### [facility] [address] [place] [address] Dr. Edna Stark Anion gap [Moles/Vol] 10.3 mmol/L Normal [facility] Comment on above: Performed By: #### C MP, LIPID #### [facility] [address] [place] [address] Dr. Edna Stark AST [Catalytic activity/Vol] 20 U/L Normal 14-36 [facility] Comment on above: Performed By: #### C MP, LIPID #### [facility] [address] [address] [address] Edna Stark Bilirubin [Mass/Vol] 0.5 mg/dL Normal 0.2-1.3 [facility] Comment on above: Performed By: #### C MP, LIPID #### [facility] [address] [address] [address] Edna Stark Calcium [Mass/Vol] 9.4 mg/dL Normal 8.4-10.2 [facility] Comment on above: Performed By: #### C MP, LIPID #### [facility] [address] [place] [address] Dr. Edna Stark Chloride [Moles/Vol] 101 mmol/L Normal 98-107 [facility] Comment on above: Performed By: #### C MP, LIPID #### [facility] [address] [place] [address] Dr. Edna Stark CO2 [Moles/Vol] 31.6 mmol/L Critically high 22.0-30.0 [facility] Comment on above: Performed By: #### C MP, LIPID #### [facility] [address] [place] [address] Dr. Edna Stark Creatinine [Mass/Vol] 0.72 mg/dL Normal 0.52-1.04 [facility] Comment on above: Performed By: #### C MP, LIPID #### [facility] [address] [place] [address] Dr. Edna Stark EGFR-AF SAO TOMEAN >60 Normal >=60 [facility] Comment on above: Performed By: #### C MP, LIPID #### [facility] [address] [place] [address] Dr. Edna Stark EGFR-NON AF SAO TOMEAN >60 Normal >=60 [facility] Comment on above: Performed By: #### C MP, LIPID #### [facility] [address] [place] [address] Dr. Edna Stark Globulin (S) [Mass/Vol] 4.0 g/dL Normal T [facility] Comment on above: Performed By: #### C MP, LIPID #### [facility] [address] [address] [address] Edna Stark Glucose [Mass/Vol] 105 mg/dL Normal 74-106 [facility] Comment on above: Performed By: #### C MP, LIPID #### [facility] [address] [address] [address] Edna Stark Potassium [Moles/Vol] 3.9 mmol/L Normal 3.4-5.0 [facility] Comment on above: Performed By: #### C MP, LIPID #### [facility] [address] [address] [address] Edna Stark Protein [Mass/Vol] 7.9 g/dL Normal 6.1-8.2 [facility] Comment on above: Performed By: #### C MP, LIPID #### [facility] [address] [place] [address] Dr. Edna Stark Sodium [Moles/Vol] 139 mmol/L Normal 137-145 [facility] Comment on above: Performed By: #### C MP, LIPID #### [facility] [address] [address] [address] Edna Stark Urea nitrogen [Mass/Vol] 20.0 mg/dL Critically high 7.0-17.0 [facility] Comment on above: Performed By: #### C MP, LIPID #### [facility] [address] [place] [address] Dr. Edna Stark Urea nitrogen/Creatinine [Mass ratio] 27.8 mg/mg Normal [facility] Comment on above: Performed By: #### C MP, LIPID #### [facility] [address] [address] [address] Edna Stark Orthopedic Office/Clinic Not olman 12-02-2020 Orthopedic Office/Clinic Note Chief Complaint Patient here to review results fo left knee MRI. MRI [facility]. History of Present Illness 50 year-old established female patient presents for FU of left knee MRI. Patient states that her symptoms are variable depending on the day with aching, stiffness, and swelling aggravating by prolonged standing and twisting. MRI to r/o meniscus tear. MRI from [facility] demonstrated no evidence of meniscal or ligamentous injury. Focal grade III cartilage loss on the MFC and milder cartilage loss on the patella. Patient has tried PO NSAID, tylenol, topical cream, ice, heat, and compression knee sleeve. Review of Systems Constitutional Head Nose Mouth Throat Cardio/Respiratory Hematologic Chills: No Headache: No Shortness of Breath: No History of DVT: No Fever: No Sore Throat: No Chest Pain: No History of Claudication: No Ear Pain: No Palpitation: No History of Aneurysm: No History of Gangrene: No Genitourinary Musculoskeletal Psychiatric Vascular Burning: No Muscle Weakness: No Anxiety: No Blood Disorder: No Pain: No Joint Pain: Yes Depression: No Numbness: No Gastrointestinal Dermatology Rheumatologic Problems: No Rash: No History of Rheumatic Arthritis: No Pain: No Pruritus: No History of Gout: No History of Lupus: No Physical Exam Vitals & Measurements T: 36.1 ?C (Temporal Artery) BP: 145/88 HT: 170.18 cm WT: 89.7 kg WT: 89.7 kg (Dosing) BMI: 30.97 Additional Vitals Body Mass Index Measured: 30.97 kg/m2 Peripheral Pulse Rate: 77 bpm BP Position/Location: Sitting, Left arm Assessment/Plan 1. Primary osteoarthritis of left knee I reviewed the patient's PMH, medications, office visit notes, and imaging. I reviewed the MRI with the patient. I recommend continued conservative treatment for the OA and reviewed those options with her. No surgical intervention indication at this time. Patient does not want to proceed with injection therapy at this time. Medical Decision Making Chronic conditions not treated during this visit that affected my overall medical decision making: [] Treatment plans discussed but not opted for at this time: injection therapy. Prescribed medication that requires intensive monitoring for toxicity: [] The medications I have prescribed have been reviewed for medication interactions/contrain dications and/or for upcoming procedures. Time Spent with the Patient I have personally spent 14 minutes on this date, directly related to today's patient visit, including pre and post visit work, for this date of service. Time listed does not include time spent on separately billable services. Problem List/Past Medical History Ongoing Environmental allergies Hay fever Hypertension Melanoma Historical No qualifying data Medications Dosoquin oral tablet, 1 tabs, Oral, Daily Durable Medical Equipment, See Instructions fluticasone 50 mcg/inh nasal spray, 1 sprays, Nasal, Daily losartan 100 mg oral tablet, 100 mg= 1 tabs, Oral, Daily Metoprolol Succinate ER 25 mg oral tablet, extended release, 25 mg= 1 tabs, Oral, Daily Allergies codeine (Lightheadedness and/or fainting) Social History Alcohol Current, Beer, 3-5 times per week Substance Abuse Denies All Tobacco 5-9 cigarettes (between 1/4 to 1/2 pack)/day in last 30 days Use:. Cigarettes, Started age 18 Years. Family History CVA: Father. Diabetes mellitus: Grandfather (M) and Grandmother (P). Diagnostic Results No qualifying data available (XRay) No qualifying data available (CT) No qualifying data available (Ultrasound) No qualifying data available (MRI) Electronically signed by Carlos Lopes PA-C 12/02/20 14:55 EST Normal [facility] MRI KNEE LEFT WO CONTRASTon 11-18-2020 MRI KNEE LEFT WO CONTRAST EXAMINATION: MRI OF THE LEFT KNEE WITHOUT CONTRAST, 11/18/2020 3:43 pm TECHNIQUE: Multiplanar multisequence MRI of the left knee was performed without the administration of intravenous contrast. COMPARISON: None. HISTORY: ORDERING SYSTEM PROVIDED HISTORY: Osteoarthritis of left patellofemoral joint FINDINGS: MENISCI: Mild degenerative type signal within the posterior horn of the medial meniscus without a discrete tear. Lateral meniscus is intact. CRUCIATE LIGAMENTS: Anterior cruciate ligament is intact. Posterior cruciate ligament is intact. EXTENSOR MECHANISM: Distal quadriceps tendon is intact. Patellar tendon is intact. LATERAL COLLATERAL LIGAMENT COMPLEX: Intact. MEDIAL COLLATERAL LIGAMENT COMPLEX: Intact. KNEE JOINT: Small joint effusion. Mild cartilage loss along the patellar apex. Partial-thickness cartilage fissure along the lateral patellar facet. Near full-thickness cartilage loss along the weight-bearing surface of the medial femoral condyle. BONE MARROW: No acute fracture. No suspicious bone marrow replacing lesion. Small osteophytes. IMPRESSION: No acute internal derangement. Near full-thickness cartilage loss along the weight-bearing surface of the medial femoral condyle. Mild patellar cartilage loss. Interpreted by: Soham Fernando MD Signed by: Soham Fernando MD 11/18/20 Final result Normal [facility] No acute internal derangement. Near full-thickness cartilage loss along the weight-bearing surface of the medial femoral condyle. Mild patellar cartilage loss. [place], [place] EXAMINATION: MRI OF THE LEFT KNEE WITHOUT CONTRAST, 11/18/2020 3:43 pm TECHNIQUE: Multiplanar multisequence MRI of the left knee was performed without the administration of intravenous contrast. COMPARISON: None. HISTORY: ORDERING SYSTEM PROVIDED HISTORY: Osteoarthritis of left patellofemoral joint FINDINGS: MENISCI: Mild degenerative type signal within the posterior horn of the medial meniscus without a discrete tear. Lateral meniscus is intact. CRUCIATE LIGAMENTS: Anterior cruciate ligament is intact. Posterior cruciate ligament is intact. EXTENSOR MECHANISM: Distal quadriceps tendon is intact. Patellar tendon is intact. LATERAL COLLATERAL LIGAMENT COMPLEX: Intact. MEDIAL COLLATERAL LIGAMENT COMPLEX: Intact. KNEE JOINT: Small joint effusion. Mild cartilage loss along the patellar apex. Partial-thickness cartilage fissure along the lateral patellar facet. Near full-thickness cartilage loss along the weight-bearing surface of the medial femoral condyle. BONE MARROW: No acute fracture. No suspicious bone marrow replacing lesion. Small osteophytes. [place], [place] Serafin, pn Incoming Radiant Results From [facility] - 11/18/2020 6:37 PM EST EXAMINATION: MRI OF THE LEFT KNEE WITHOUT CONTRAST, 11/18/2020 3:43 pm TECHNIQUE: Multiplanar multisequence MRI of the left knee was performed without the administration of intravenous contrast. COMPARISON: None. HISTORY: ORDERING SYSTEM PROVIDED HISTORY: Osteoarthritis of left patellofemoral joint FINDINGS: MENISCI: Mild degenerative type signal within the posterior horn of the medial meniscus without a discrete tear. Lateral meniscus is intact. CRUCIATE LIGAMENTS: Anterior cruciate ligament is intact. Posterior cruciate ligament is intact. EXTENSOR MECHANISM: Distal quadriceps tendon is intact. Patellar tendon is intact. LATERAL COLLATERAL LIGAMENT COMPLEX: Intact. MEDIAL COLLATERAL LIGAMENT COMPLEX: Intact. KNEE JOINT: Small joint effusion. Mild cartilage loss along the patellar apex. Partial-thickness cartilage fissure along the lateral patellar facet. Near full-thickness cartilage loss along the weight-bearing surface of the medial femoral condyle. BONE MARROW: No acute fracture. No suspicious bone marrow replacing lesion. Small osteophytes. IMPRESSION: No acute internal derangement. Near full-thickness cartilage loss along the weight-bearing surface of the medial femoral condyle. Mild patellar cartilage loss. [place], [place] Orthopedic Office/Clinic Not olman 10-28-2020 Orthopedic Office/Clinic Note Chief Complaint Patient here for symptom check on left knee PJF OA s/p PO NSAIDS, tylenol, heat/ice, topical cream and PFJ brace. States doing well. Overall 50-60 percent improvement. 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 She has been doing PT, NSAID, tylenol, cream, ice/heat, and brace with moderate improvement. She c/o continued pain anterolateral mostly with directional change, twisting, and occasional catching/locking. Review of Systems Constitutional Head Nose Mouth Throat Cardio/Respiratory Hematologic Chills: No Headache: No Shortness of Breath: No History of DVT: No Fever: No Sore Throat: No Chest Pain: No History of Claudication: No Ear Pain: No Palpitation: No History of Aneurysm: No History of Gangrene: No Genitourinary Musculoskeletal Psychiatric Vascular Burning: No Muscle Weakness: No Anxiety: No Blood Disorder: No Pain: No Joint Pain: Yes Depression: No Numbness: No Gastrointestinal Dermatology Rheumatologic Problems: No Rash: No History of Rheumatic Arthritis: No Pain: No Pruritus: No History of Gout: No History of Lupus: No Physical Exam Vitals & Measurements T: 36.3 ?C (Temporal Artery) HR: 97 (Peripheral) BP: 170/92 HT: 170.18 cm WT: 90.2 kg WT: 90.2 kg (Dosing) BMI: 31.15 Left knee- moderate edema, crepitance, 0-120, tenderness lateral joint line and lateral patella, (-) patellar apprehension, central patellar stability, (-) mcmurrays, (+) thessaly, 4+/5, intact gait. Additional Vitals Body Mass Index Measured: 31.15 kg/m2 Peripheral Pulse Rate: 97 bpm BP Position/Location: Sitting, Left arm Assessment/Plan 1. Osteoarthritis of left patellofemoral joint 2. Tear of lateral meniscus of left knee Discussed continued conservative treatment vs MRI to r/o meniscus tear. Patient would like to pursue the MRI. FU with test results CIELO. Medical Decision Making The medications I have prescribed have been reviewed for medication interactions/contrain dications and/or for upcoming procedures. Time Spent with the Patient I have personally spent 15 minutes on this date, directly related to today's patient visit, including pre and post visit work, for this date of service. Time listed does not include time spent on separately billable services. Problem List/Past Medical History Ongoing Environmental allergies Hay fever Hypertension Melanoma Osteoarthritis of left patellofemoral joint Historical No qualifying data Medications Dosoquin oral tablet, 1 tabs, Oral, Daily Durable Medical Equipment, See Instructions fluticasone 50 mcg/inh nasal spray, 1 sprays, Nasal, Daily losartan 100 mg oral tablet, 100 mg= 1 tabs, Oral, Daily Metoprolol Succinate ER 25 mg oral tablet, extended release, 25 mg= 1 tabs, Oral, Daily Allergies codeine (Lightheadedness and/or fainting) Social History Alcohol Current, Beer, 3-5 times per week Substance Abuse Denies All Tobacco 5-9 cigarettes (between 1/4 to 1/2 pack)/day in last 30 days Use:. Cigarettes, Started age 18 Years. Family History CVA: Father. Diabetes mellitus: Grandfather (M) and Grandmother (P). Diagnostic Results No qualifying data available (XRay) No qualifying data available (CT) No qualifying data available (Ultrasound) No qualifying data available (MRI) Electronically signed by Carlos Lopes PA-C 10/28/20 16:22 EST Normal [facility] XR Knee 3 Views Lefton 10-04 XR Knee 3 Views Left _X-ray report EXAM: 3 views standing left knee IMPRESSION: No tilt or subluxation on patellofemoral view. No evidence of any significant fracture or dislocation. No advanced degenerative changes are identified. jjd Final Signed by: Yuriy CAIN, Damián Ruiz Signed (Electronic Signature): 10/04/2020 12:07 pm Transcribed DT/TM: 10/04/2020 12:07 (If Report Is Signed, Electronically Signed in Other Vendor System) Normal [facility] Orthopedic Office/Clinic Not olman 10-01-2020 Orthopedic Office/Clinic Note Chief Complaint Patient here for left knee injury. Onset of pain after she was carrying boxes and she tripped and fell on concrete in June. XR today BVO. History of Present Illness 50 year-old female patient presents c/o left anterior knee pain after a trip and fall on concrete in June. She also described an incident of possible patellar subluxation a week before Thanksgiving. She c/o swelling and decreased motion as well. She has tried PO NSAID and ice. Denies any catching or giving way. No prior knee surgical history. Review of Systems Constitutional Head Nose Mouth Throat Cardio/Respiratory Hematologic Chills: No Headache: No Shortness of Breath: No History of DVT: No Fever: No Sore Throat: No Chest Pain: No History of Claudication: No Ear Pain: No Palpitation: No History of Aneurysm: No History of Gangrene: No Genitourinary Musculoskeletal Psychiatric Vascular Burning: No Muscle Weakness: Yes Anxiety: No Blood Disorder: No Pain: No Joint Pain: Yes Depression: No Numbness: No Gastrointestinal Dermatology Rheumatologic Problems: No Rash: No History of Rheumatic Arthritis: No Pain: No Pruritus: No History of Gout: No History of Lupus: No Physical Exam Vitals & Measurements T: 36.8 ?C (Temporal Artery) BP: 124/86 HT: 167.64 cm WT: 87.9 kg DOSE WT: 87.9 kg BMI: 31.28 Body Part: left knee General- A&Ox3, pleasant, cooperative Vital Signs- See above Inspection- skin intact, (+) edema, (-) ecchymosis, (-) deformity Palpation- (+) point tenderness peripatellar ROM- 0-120 Strength- 4+/5 Special Tests- stable to ligamentous testing, (-) mcmurrays Neurovascular- intact, intact gait Joints above and below WNL Imaging- Preliminary interpretation of 3 xray views of the left knee demonstrate moderate narrowing and bone spurring in the patellofemoral joint. Possible loose body posteriorly. No tibiofemoral degeneration, fracture, lesion, or bony malalignment. Additional Vitals Body Mass Index Measured: 31.28 kg/m2 Peripheral Pulse Rate: 76 bpm BP Position/Location: Sitting, Left arm Assessment/Plan 1. Osteoarthritis of left patellofemoral joint Ordered: DME, Other (Specify in eRx Note), See Instructions, # 1, EA, 99 Months Referral to Physical Therapy Fall Pain in left knee I reviewed the xrays and diagnosis with the patient. I recommend conservative treatment for OA flare. PO NSAID, tylenol, ice/heat, topical cream. PT and PFJ brace rx given. FU in 3-4 weeks, if not improved, consider [place] CSI. Orders: External Referral Problem List/Past Medical History Ongoing Environmental allergies Hay fever Hypertension Melanoma Osteoarthritis of left patellofemoral joint Historical No qualifying data Medications Dosoquin oral tablet, 1 tabs, Oral, Daily Durable Medical Equipment, See Instructions fluticasone 50 mcg/inh nasal spray, 1 sprays, Nasal, Daily losartan 100 mg oral tablet, 100 mg, 1 tabs, Oral, Daily Metoprolol Succinate ER 25 mg oral tablet, extended release, 25 mg, 1 tabs, Oral, Daily Allergies codeine (Lightheadedness and/or fainting) Social History Alcohol Current, Beer, 3-5 times per week Substance Abuse Denies All Tobacco 5-9 cigarettes (between 1/4 to 1/2 pack)/day in last 30 days Use:. Cigarettes, Started age 18 Years. Family History CVA: Father. Diabetes mellitus: Grandfather (M) and Grandmother (P). Diagnostic Results No qualifying data available (XRay) No qualifying data available (CT) No qualifying data available (Ultrasound) No qualifying data available (MRI) Electronically signed by Carlos Lopes PA-C 10/01/20 10:38 EST Normal [facility] Vital Signs Date Time Vital Sign Value Performing Clinician Faci lity 07-30-2024 16:06-0400 Body mass index (BMI) [Ratio] 28.96 kg/m2 Norma Virk [employer] Work Phone: [facility] 07-30-2024 16:06-0400 Body temperature 97.9 [degF] Norma Pricepatrick [employer] Work Phone: [facility] 07-30-2024 16:06-0400 Body weight 78.93 kg Norma Virk [employer] Work Phone: [facility] 07-30-2024 16:06-0400 Diastolic blood pressure 78 mm[Hg] Norma Virk [employer] Work Phone: [facility] 07-30-2024 16:06-0400 Heart rate 81 /min Norma Virk [employer] Work Phone: [facility] 07-30-2024 16:06-0400 SaO2% (BldA) [Mass fraction] 97 % Norma Virk [employer] Work Phone: [facility] 07-30-2024 16:06-0400 Systolic blood pressure 118 mm[Hg] Norma Virk [employer] Work Phone: [facility] Healthcare Encounters Encounter Date Encounter Type Care Provider Facility Start: 08-15-2024 End: 08-15-2024 ambulatory Nkechi Read Facility:[facility] Start: 08-15-2024 End: 08-15-2024 Patient encounter procedure Nkechi Read [facility] Start: 07-30-2024 End: 07-30-2024 Office outpatient visit 10 minutes Norma Virk [employer] Work Phone: [facility] Comment on above: Class 1 obesity due to excess calories without serious comorbidity with body mass index (BMI) of 30.0 to 30.9 in adult (Primary Dx); Class 1 obesity due to excess calories without serious comorbidity with body mass index (BMI) of 32.0 to 32.9 in adult Start: 07-30-2024 End: 07-30-2024 ambulatory NORMA VIRK Not Available Start: 07-30-2024 End: 07-30-2024 Bamboo flowsheet Norma Virk [employer] Work Phone: [facility] Start: 07-30-2024 End: 07-30-2024 Bamboo flowsheet Norma Virk [employer] Work Phone: [facility] Start: 06-18-2024 End: 06-18-2024 ambulatory NORMA VELASQUEZTRICK Not Available Start: 05-19-2024 End: 05-19-2024 ambulatory FARLEY FAWWAD Not Available Start: 04-17-2024 End: 04-17-2024 ambulatory FARLEY FAWWAD Not Available Start: 03-10-2024 End: 03-10-2024 ambulatory FARLEY FAWWAD Not Available Start: 08-04-2023 End: 08-04-2023 Patient encounter procedure Nkechi Read [facility] Start: 11-02-2022 End: 11-02-2022 ambulatory Farley Famaria rwad Facility:[facility] Start: 11-02-2022 End: 11-02-2022 ambulatory MD Shaikh Montoya Work Phone: [facility] Work Phone: Start: 11-02-2022 End: 11-02-2022 Patient encounter procedure MD Shaikh Montoya Work Phone: [facility] [place] Work Phone: Start: 05-12-2022 End: 05-12-2022 Patient encounter procedure Nkechi Read [facility] Start: 12-12-2021 End: 12-13-2021 ambulatory FARLEY FAWWAD Facility:[facility] Start: 09-21-2021 End: 09-22-[address] ANGI PARK Facility:[facility] Start: 11-18-2020 End: 11-21-2020 Patient encounter procedure CARLOS LOPES [facility] Start: 11-18-2020 End: 11-20-2020 Subsequent hospital visit by physician [facility] Mri Scanner [facility] MRI Comment on above: Osteoarthritis of le ft patellofemoral joint Procedures Date Procedure Procedure Detail Performing Clinician Start: 10-25-2023 Mammography Norma moura [employer] Work Phone: Start: 11-18-2020 Mri any jt lower ext rem w/o contrast matrl Carlos Lopes Work Phone: Start: 10-22-2020 Colonoscopy Norma moura [employer] Work Phone: Arthrotomy of shoulder Teres a Roro Bilateral tubal ligation Ter chay Roro Plan of Treatment Date Care Activity Detail Author Start: 10-22-2030 Screening for malign ant neoplasm of colon [facility] Start: 04-23-2028 Screening for malign ant neoplasm of cervix [facility] Start: 10-25-2024 Screening for malign ant neoplasm of breast Mammogram [facility] Start: 09-10-2024 End: 09-10-2024 Patient encounter procedure 09/10/2024 4:30 PM EST Office Visit [facility] [address] [place] [phone] Norma Virk, CORNEL [address] [place] [phone] [facility] Start: 07-30-2024 End: 07-30-2024 Patient encounter procedure 07/30/2024 4:00 PM EDT [facility] [address] [place] [phone] Norma Virk NP [address] [place] [phone] Class 1 obesity due to excess calories without serious comorbidity with body mass index (BMI) of 30.0 to 30.9 in adult (Primary Dx); Other hyperlipidemia (CMS/HCC); Primary hypertension (CMS/HCC) [facility] Comment on above: Class 1 obesity due to excess calories without serious comorbidity with body mass index (BMI) of 30.0 to 30.9 in adult (Primary Dx); Other hyperlipidemia (CMS/HCC); Primary hypertension (CMS/HCC) Start: 06-22-2024 Influenza vaccination Influenza Vacc ine (#1) [facility] Start: 06-22-2020 Influenza vaccination Flu vaccine (# 1) [place], [place] Start: 2018 Screening for malign ant neoplasm of breast Breast cancer screen [place], [place] Start: 2018 Screening for malign ant neoplasm of colon Colon cancer screen colonoscopy [place] Start: 2018 Shingles Vaccine (1 of 2) Shingles Vaccine (1 of 2) [place] Start: 2008 Lipid panel Lipid screen [place], [place] Start: 1989 Screening for malign ant neoplasm of cervix [facility] Start: 1987 DTaP/Tdap/Td vaccine (1 - Tdap) DTaP/Tdap/Td vaccine (1 - Tdap) [place] Start: 1983 HIV screening HIV screen [place], [place] Start: 1968 Hepatitis C screening Hepatitis C sc reen [place], [place] Start: 1968 Screening for malign ant neoplasm of colon [facility] Immunizations Immunization Date Immunization Notes Care Provider Fa jovanity 09-29-2022 influenza, injectabl e, quadrivalent, preservative free Norma Virk [employer] Work Phone: [facility] 09-29-2022 influenza virus vaccine, unspecified formulation Norma Virk [employer] Work Phone: [facility] Payers Date Payer Category Payer Self-pay 2022 Unknown [id number] 2019 Unknown BCBS BCBS [id number] 2019-Present [phone] [id number] [place] [address] [id number] 1968 Unknown [id number] 1968 Unknown [id number] 1968 Unknown [id number] 1968 Unknown [id number] 1968 Unknown [id number] 1968 Unknown [id number] 1968 Unknown [id number] 1968 Unknown [id number] 1968 Unknown [id number] 1968 Unknown [id number] 1959 Unknown [id number] Unknown [id number] Social History Date Type Detail Facility [facility] [place] Start: 1970 Sex Assigned At Not on file [facility] [place] Exposure to SARS-CoV -2 (event) Not sure [place], [place] Tobacco Current, Cigaret andrew, 3 per day. 15 year(s). Previous treatment: Medications. Ready to change: No. Household tobacco concerns: No. [facility] Start: 06-11-2024 End: 06-18-2024 Sex Assigned At Female [facility] Start: 1970 Sex Assigned At Female [facility] Tobacco smoking status No Smokin g Status Entered [facility] Start: 03-10-2024 Tobacco smoking status NHIS Ex-smoker [facility] History of tobacco use Current smoker [facility] History of tobacco use Cigarette Smoker [facility] History of tobacco use Passive smoker [facility] Start: 03-10-2024 Tobacco use and exposure Smokeless tobacco non-user [facility] Start: 06-18-2024 Alcoholic beverage intake Current drinker of alcohol (finding) [facility] Start: 06-11-2024 End: 06-18-2024 History of Social function [facility] How often do you nee d to have someone help you when you read instructions, pamphlets, or other written material from your doctor or pharmacy [SILS] Never [facility] Do you belong to any clubs or organizations such as hinduism groups, unions, fraternal or athletic groups, or school groups? Yes [facility] Are you now , , , , never or living with a partner? [facility] How often to you hav e a drink containing alcohol? 2-3 time sa week [facility] How many standard dr inks containing alcohol do you have on a typical day? 1 or 2 [facility] How often do you hav e 6 or more drinks on 1 occasion? Less than monthly [facility] Do you feel stress - tense, restless, nervous, or anxious, or unable to sleep at night because your mind is troubled all the time - these days [OSQ] Not at all [facility] (I/We) worried wheth er (my/our) food would run out before (I/we) got money to buy more. Never true [facility] In the past 12 month s, was there a time when you were not able to pay the mortgage or rent on time? No [facility] Start: 03-10-2024 Alcohol Comment OCCASSIONAL [facility] History of Present illness Narrative 07-30-2024 Norma Virk NP - 07/30/2024 4:00 PM EDTBrikamlesh Virk, [employer] - 07/30/2024 1:03 PM EDT Note Date & Type Note Facility 07-30-2024 History of Presen t illness Narrative Images from the original note were not included. Subjective Patient ID: Kacie Briceno is a 53 y.o. female who presents for Follow-up (adipex). HPI Is here today for Weight follow-up; Has been on Phentermine for 4 months now; Starting weight: 209 Current weight: 174 Total weight loss: 35 Goal Weight: 150 Has began walking 2 miles per day Dietary habit changes, has decreased sweets and carbohydrates. Is eating more protein. Weighs food out. Has made several lifestyle changes. Pt meets qualifications of OAC 4731-08-25 for weight loss. BMI>30 or >27 with comorbid conditions. Blood pressure WNL. Notify office with any symptoms of chest pain, dyspnea, heart palpitations, or any anxiety symptoms. F/U in 4 weeks to document weight loss. Increase physical activity as tolerated, and lower caloric intake to 1600 calories daily if no contraindications Review of Systems Constitutional: Negative for activity change, appetite change, chills, diaphoresis, fatigue, fever and unexpected weight change. HENT: Negative for congestion, ear pain, rhinorrhea, sinus pressure, sinus pain, sneezing, sore throat, trouble swallowing and voice change. Eyes: Negative for visual disturbance. Respiratory: Negative for cough, chest tightness, shortness of breath and wheezing. Cardiovascular: Negative for chest pain, palpitations and leg swelling. Gastrointestinal: Negative for abdominal distention, abdominal pain, blood in stool, constipation, diarrhea and vomiting. Genitourinary: Negative for decreased urine volume, dysuria, flank pain, frequency, hematuria and urgency. Musculoskeletal: Negative for arthralgias, gait problem, joint swelling and myalgias. Skin: Negative for rash. Neurological: Negative for dizziness, tremors, syncope, weakness, light-headedness and headaches. Psychiatric/Behavioral: Negative for decreased concentration and suicidal ideas. The patient is not nervous/anxious. Hematological: Does not bruise/bleed easily. Endocrine: Negative for cold intolerance, heat intolerance, polydipsia, polyphagia and polyuria. Objective Physical Exam Vitals reviewed. Constitutional: Appearance: Normal appearance. HENT: Head: Normocephalic and atraumatic. Right Ear: Tympanic membrane normal. Left Ear: Tympanic membrane normal. Nose: Nose normal. Mouth/Throat: Mouth: Mucous membranes are moist. Pharynx: Oropharynx is clear. Eyes: Pupils: Pupils are equal, round, and reactive to light. Cardiovascular: Rate and Rhythm: Normal rate and regular rhythm. Pulses: Normal pulses. Heart sounds: Normal heart sounds. Pulmonary: Effort: Pulmonary effort is normal. Breath sounds: Normal breath sounds. Abdominal: General: Abdomen is flat. Bowel sounds are normal. Palpations: Abdomen is soft. Musculoskeletal: General: Normal range of motion. Cervical back: Normal range of motion. Skin: General: Skin is warm and dry. Capillary Refill: Capillary refill takes less than 2 seconds. Neurological: General: No focal deficit present. Mental Status: She is alert and oriented to person, place, and time. Psychiatric: Mood and Affect: Mood normal. Behavior: Behavior normal. Assessment/Plan Problem List Items Addressed This Visit Class 1 obesity due to excess calories without serious comorbidity with body mass index (BMI) of 30.0 to 30.9 in adult - Primary Has been on Phentermine for 4 months now; Starting weight: 209 Current weight: 174 Total weight loss: 35 Goal Weight: 150 Has began walking 2 miles per day Dietary habit changes, has decreased sweets and carbohydrates. Is eating more protein. Weighs food out. Has made several lifestyle changes. Pt meets qualifications of [facility] 4731-08-25 for weight loss. BMI>30 or >27 with comorbid conditions. Blood pressure WNL. Notify office with any symptoms of chest pain, dyspnea, heart palpitations, or any anxiety symptoms. F/U in 4 weeks to document weight loss. Increase physical activity as tolerated, and lower caloric intake to 1600 calories daily if no contraindications Relevant Medications phentermine (Adipex-P) 37.5 MG tablet (Start on 08/16/2024) Other Visit Diagnoses Class 1 obesity due to excess calories without serious comorbidity with body mass index (BMI) of 32.0 to 32.9 in adult Relevant Medications phentermine (Adipex-P) 37.5 MG tablet (Start on 08/16/2024) Associated Problem(s): Class 1 obesity due to excess calories without serious comorbidity with body mass index (BMI) of 30.0 to 30.9 in adult Has been on Phentermine for 4 months now; Starting weight: 209 Current weight: 174 Total weight loss: 35 Goal Weight: 150 Has began walking 2 miles per day Dietary habit changes, has decreased sweets and carbohydrates. Is eating more protein. Weighs food out. Has made several lifestyle changes. Pt meets qualifications of [facility] 4731-08-25 for weight loss. BMI>30 or >27 with comorbid conditions. Blood pressure WNL. Notify office with any symptoms of chest pain, dyspnea, heart palpitations, or any anxiety symptoms. F/U in 4 weeks to document weight loss. Increase physical activity as tolerated, and lower caloric intake to 1600 calories daily if no contraindications documented in this encounter [facility] Healthcare Instructions 07-30-2024 Patient Instructions Note Date & Type Note Facility 07-30-2024 Instructions Norma Virk NP - 07/30/2024 4:00 PM EDT Keep up the good work!! Notify office with any symptoms of chest pain, dyspnea, heart palpitations, or any anxiety symptoms. F/U in 4 weeks to document weight loss. Increase physical activity as tolerated, and lower caloric intake to 1600 calories daily if no contraindications\ documented in this encounter [facility] Healthcare Evaluation + Plan note Note Date & Type Note Facility Evaluation + Plan note No data available for this section [facility] Evaluation note Note Date & Type Note Facility Evaluation note No assessment information [facility] Work Phone: Evaluation note Note Date & Type Note Facility Evaluation note Diagnosis Class 1 obesity due to excess calories without serious comorbidity with body mass index (BMI) of 30.0 to 30.9 in adult- Primary Class 1 obesity due to excess calories without serious comorbidity with body mass index (BMI) of 32.0 to 32.9 in adult documented in this encounter [facility] Discharge instructions Note Date & Type Note Facility Hospital Discharge instructions No data available for this section [facility] Progress note Note Date & Type Note Facility Progress note No data available for this section [facility] Reason for Referral Status Reason Specialty Diagnoses / Procedures Re ferred By Contact Referred To Contact Closed Radiology Diagnoses Osteoarthritis of left patellofemoral joint Procedures MRI KNEE LEFT WO CONTRAST MosesMeenaie Toño [address] [place] [address] [place] [address] [place] [address] Assessments Diagnosis Osteoarthritis of left patellofemoral joint Summary Purpose Family History No Family History Records FoundNo Family History Records FoundNo Family History Records FoundNo Family History Records FoundNo Family History Records Found No data available for this section No Family History Records Found No data available for this section No Family History Records Found Advance Directives No Advanced Directives Records Found Advance Directive Response Recorded Date/ Time Advance Directives No November 02, 2022 1:36pm Chief Complaint and Reason for Visit Chief Complaint I10 e78.5 Additional Source Comments Reason for Visit (unrecogniz ed section and content) Status Reason Specialty Diagnoses / Procedures Re ferred By Contact Referred To Contact Closed Radiology Diagnoses Osteoarthritis of left patellofemoral joint Procedures MRI KNEE LEFT WO CONTRAST MosesMeenafloyd Lundberg [address] [place] [address] [place] [address] [place] [address] Reason Comments Follow-up adipex INFORMATION SOURCE (unrecogn ized section and content) DATE CREATED AUTHOR 11/20/2020 [facility] DATE CREATED AUTHOR AUTHOR'S ORGANIZ ATION 12/04/2020 [facility] DATE CREATED AUTHOR AUTHOR'S ORGANIZ ATION 12/16/2021 [facility] DATE CREATED AUTHOR AUTHOR'S ORGANIZ ATION 10/31/2022 [facility] DATE CREATED AUTHOR AUTHOR'S ORGANIZ ATION 11/03/2022 [facility] DATE CREATED AUTHOR AUTHOR'S ORGANIZ ATION 08/01/2024 [facility] EPIC DATE CREATED AUTHOR AUTHOR'S SANTOS ATION 08/24/2024 Lukas Perales [facility] Care Team (unrecognized sect ion and content) Team Status: Inactive Member Role Status Dates Shaikh Jan MD Primary Care Provider, Attending Roman minor Active Team Status: Active Member Role Status Dates Shaikh Jan MD Primary Care Provider Active Instructor Trainer Canine Service Relationship Specialty Start Date End Date Shaikh Montoya MD [address] [place] [id number] PCP - General Internal Medicine 03/10/24 Instructor Trainer Canine Service Relationship Specialty Start Date End Date Shaikh Montoya MD [address] [place] [phone] PCP - General Internal Medicine 03/10/24 Goals (unrecognized section and content) Goals may be documented in a n alternate section FOR RECORDS PERTAINING TO PATIENTS WHO ARE OR HAVE BEEN ENROLLED IN A CHEMICAL DEPENDENCY/SUBSTANCEABUSE PROGRAM, SOME INFORMATION MAY BE OMITTED. This clinical summary was aggregated from multiple sources. Caution should be exercised in using it in the provision of clinical care. This summary normalizes information from multiple sources, and as a consequence, information in this document may materially change the coding, format and clinical context of patient data. In addition, data may be omitted in some cases. CLINICAL DECISIONS SHOULD BE BASED ON THE PRIMARY CLINICAL RECORDS. [employer] provides no warranty or guarantee of the accuracy or completeness of information in this document.
--- NOTE | 2024-08-29 02:40 | CT_ITS ---
[address] [address] Patient Name: PARISA BRICENO MRN: [id number] date: 1970 Sex: F Assigned Patient Location: ER Current Patient Location: Accession/Order Number: [id number] Exam Date: 08/29/2024 02:50 Report Date: 08/29/2024 03:43 At the request of: CELESTE CHIN Procedure: CT cervical spine wo con Cervical CT. HISTORY: Syncope. TECHNIQUE: CT imaging of the cervical spine was performed. IV contrast: None. Dose reduction techniques were achieved by using automated exposure control and/or adjustment of mA and/or kV according to patient size and/or use of iterative reconstruction technique. COMPARISON: None available. FINDINGS: POSTOPERATIVE CHANGES: None. ALIGNMENT: Nonspecific straightening of the normal cervical curve. COMPRESSION FRACTURES: No fracture or vertebral body collapse. No bone displacement. No asymmetric widening of the facets. Incidental note is made of congenital fusion of C7 and T1 across the disc space as well as the posterior elements. PREVERTEBRAL SOFT TISSUES: Normal. CRANIOCERVICAL JUNCTION: There is a normal relationship of the occipital condyles, lateral masses of C1, and articular surfaces of C2. The base of the dens and body of C2 are intact. There is narrowing of the predental space with spurring arising from the anterior arch of C1. POSTERIOR FOSSA: The cerebellar tonsils are above the foramen magnum. Disc levels: C2-C3: No disc herniation. No spinal canal or foraminal narrowing. C3-C4: No disc herniation. No spinal canal or foraminal narrowing. C4-C5: No disc herniation. No spinal canal or foraminal narrowing. C5-C6: Disc space narrowing posteriorly. Anterior osteophyte formation. Facet degeneration. Central canal patent. Neural foramina patent. C6-C7: Facet degeneration bilaterally worse on the left than the right. Central canal patent. Neural foramina patent. C7-T1: Congenital fusion. Central canal patent. Neural foramina patent. UPPER THORACIC SPINE: At T1-T2 and T2-T3, Beam hardening artifacts. Central canal patent. Neural foramina patent. OTHER: No thyroid nodule or adenopathy. CT/CT cervical spine wo con IMPRESSION: 1.. No cervical fracture or bone displacement. 2. Congenital fusion of C6 and C7. Electronically authenticated by: GARCIA OHARA Date: 08/29/2024 03:43
--- NOTE | 2024-08-29 02:40 | CT_ITS ---
[address] [address] Patient Name: PARISA BRICENO MRN: [id number] date: 1970 Sex: F Assigned Patient Location: ER Current Patient Location: Accession/Order Number: [id number] Exam Date: 08/29/2024 02:50 Report Date: 08/29/2024 03:34 At the request of: CELESTE MARKER Procedure: CT head/brain wo con EXAM: CT head/brain wo con INDICATION: 53 years old; Female. Syncope. Closed head trauma. TECHNIQUE: CT Head (ax/cor/sag reformats). Ionizing radiation dose reduced via iterative reconstruction/FBP blend and body size kV/mA adjustment. Comparison: None FINDINGS: POSTOPERATIVE CHANGES: None. BRAIN PARENCHYMA: No intraparenchymal or extra-axial hemorrhage. No mass effect. No midline shift or herniation. Normal sequeira/white differentiation. VENTRICLES/EXTRA-AXIAL SPACES: Normal for patient's age. SINUSES/MASTOIDS: The sinuses are clear although the paranasal sinuses are not completely included. Mastoids and middle ears are clear. MSK: No displaced or depressed calvarial fracture. OTHER: No hyperdense intraluminal thrombus. Vascular calcifications are present. TECHNIQUE: CT imaging of the cervical spine was performed. IV contrast: None. Dose reduction techniques were achieved by using automated exposure control and/or adjustment of mA and/or kV according to patient size and/or use of iterative reconstruction technique. COMPARISON: None available. FINDINGS: POSTOPERATIVE CHANGES: None. ALIGNMENT: Nonspecific straightening of the normal cervical curve. COMPRESSION FRACTURES: No fracture or vertebral body collapse. No bone displacement. No asymmetric widening of the facets. Incidental note is made of congenital fusion of C7 and T1 across the disc space as well as the posterior elements. PREVERTEBRAL SOFT TISSUES: Normal. CRANIOCERVICAL JUNCTION: There is a normal relationship of the occipital condyles, lateral masses of C1, and articular surfaces of C2. The base of the dens and body of C2 are intact. There is narrowing of the predental space with spurring arising from the anterior arch of C1. POSTERIOR FOSSA: The cerebellar tonsils are above the foramen magnum. Disc levels: C2-C3: No disc herniation. No spinal canal or foraminal narrowing. C3-C4: No disc herniation. No spinal canal or foraminal narrowing. C4-C5: No disc herniation. No spinal canal or foraminal narrowing. C5-C6: Disc space narrowing posteriorly. Anterior osteophyte formation. Facet degeneration. Central canal patent. Neural foramina patent. C6-C7: Facet degeneration bilaterally worse on the left than the right. Central canal patent. Neural foramina patent. C7-T1: Congenital fusion. Central canal patent. Neural foramina patent. UPPER THORACIC SPINE: At T1-T2 and T2-T3, Beam hardening artifacts. Central canal patent. Neural foramina patent. OTHER: No thyroid nodule or adenopathy. CT/CT head/brain wo con IMPRESSION: 1. No acute intracranial abnormality. No hemorrhage or mass effect. 2. No cervical fracture or bone displacement. 3. Congenital fusion of C6 and C7. Electronically authenticated by: GARCIA OHARA Date: 08/29/2024 03:34
--- NOTE | 2024-08-29 02:44 | XR_ITS ---
The [address] [address] Patient Name: PARISA BRICENO MRN: [id number] date: 1970 Sex: F Assigned Patient Location: ER Current Patient Location: ER Accession/Order Number: [id number] Exam Date: 08/29/2024 02:50 Report Date: 08/29/2024 05:06 At the request of: CELESTE MARKER Procedure: XR chest 1V EXAM: XR chest 1V HISTORY: Syncope. COMPARISON: None. TECHNIQUE: Single frontal view of the chest performed. FINDINGS: The trachea is midline. The cardiac silhouette is upper limits normal size. There is mild atheromatous calcification at the aortic arch. The hilar shadows are unremarkable. There is no consolidation, pleural effusion or pulmonary vascular congestion. There is no pneumothorax. The osseous structures are unremarkable. XR/XR chest 1V IMPRESSION: There is no acute cardiopulmonary process. Electronically authenticated by: JU RAY Date: 08/29/2024 05:06
[2024-08-29 02:53] LABS: Basophils Percent Auto 0.2 % (0.2-2.0); Eosinophils Percent Auto 0.8 % (0.9-7.0); Hematocrit 36.6 % (36.0-48.0); Hemoglobin 13.2 g/dL (12.0-16.0); Immature Granulocytes Abs Auto 0.01 10^3/uL (0.00-0.03); Immature Granulocytes Pct Auto 0.2 % (0.0-0.5); Lymphocytes Absolute Auto 1.6 10^3/uL (1.2-3.8); Mean Corpuscular HGB Conc 36.1 g/dL (29.9-35.2); Mean Corpuscular Hemoglobin 33.2 pg (26.7-34.0); Mean Platelet Volume 8.5 fL (9.5-13.5); Monocytes Absolute Auto 0.3 10^3/uL (0.3-0.8); Monocytes Percent Auto 5.8 % (1.7-12.0); Neutrophils Absolute Auto 2.8 10^3/uL (1.4-6.5); Platelet Count 274 10^3/uL (150-450); Red Blood Count 3.98 10^6/uL (4.20-5.40); White Blood Count 4.8 10^3/uL (4.0-11.0)
--- NOTE | 2024-08-29 03:00 | ED.SYNCOPE1 ---
HPI - Syncope General Chief Complaint: Dizziness Stated Complaint: GENERAL WEAKNESS FALL HEAD INJURY Time Seen by Provider: 08/29/24 02:13 Source: patient Mode of arrival: Wheelchair Limitations: no limitations History of Present Illness HPI narrative: This 53-year-old female is brought to the emergency department by her and [id number]. The patient was in bed this morning and her was complaining of some pain. She got out of bed to get him some pain medication and then went into the kitchen where she became dizzy and passed out striking the right side of her head on the floor. The patient's states she was shaking a little bit and was completely pale and diaphoretic. After regaining consciousness after a brief period of time she was able to get up and went to the bathroom and had a large amount of diarrhea. She was ambulatory afterwards and was brought to the emergency department for evaluation. She has right posterior head pain where she struck her head on the floor. She denies any chest pain or shortness of breath. She states prior to passing out she felt dizzy and diaphoretic. She does not recall whether or not she felt the need to have a bowel movement at that time. She has no neck pain. She has no focal neurologic symptoms. She denies any nausea or vomiting. She had 3 beers prior to going to bed last night. Related Data Home Medications ?Medication ?Instructions ?Recorded ?Confirmed losartan 100 tab 08/29/24 mg-hydrochlorothiazide 25 mg tablet phentermine 37.5 mg tablet mg 08/29/24 simvastatin 20 mg tablet mg 08/29/24 Allergies Allergy/AdvReac Type Severity Reaction Status Date / Time codeine Allergy Intermediate Dizziness Verified 08/29/24 02:19 Review of Systems ROS Status of ROS 10 or more systems reviewed and unremarkable except as noted in history and below PFSH PFSH Social History Little interest or pleasure in doing things: not at all Feeling down, depressed, or hopeless: not at all Exam Narrative Exam Narrative: Vital signs and Nursing Notes reviewed: General: Awake, alert, oriented, GCS 15 HEENT: Normocephalic, tender with mild swelling at the posterior right occipital aspect of the scalp, no step-off laceration or abrasion noted Neck: Supple, no midline bony vertebral tenderness or step-off Chest: Lungs are clear to auscultation with good air entry, there is no wheezing rhonchi or rales appreciated no accessory muscle use, patient is speaking in complete sentences-no chest wall tenderness to palpation CVS: Regular rate and rhythm S1-S2, no murmurs rubs or gallops, pulses are brisk and equal bilaterally ABD: Soft, nondistended, nontender, no rebound guarding or rigidity, bowel sounds are normal, no pulsatile masses appreciated Extremities: Moving all extremities, no lower extremity tenderness or swelling noted, negative Homans' sign, pulses are brisk and equal bilaterally Skin: Normal in appearance without rash,pallor, petechiae or purpura Neuro: No focal deficits, speech is clear, 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, upper and lower extremity strength and sensation is intact, there is no facial droop, negative pronator drift Constitutional Vital Signs, click to edit/add: Last Vital Signs Temp 98.6 F 08/29/24 03:00 Pulse 78 08/29/24 04:30 Resp 17 08/29/24 04:30 BP 107/68 08/29/24 03:08 Pulse Ox 98 08/29/24 04:30 O2 Del Method Room Air 08/29/24 02:20 Course Vital Signs Vital signs: Vital Signs Pulse Oximetry 99 08/29/24 02:14 Temperature 98.6 F 08/29/24 03:00 Pulse Rate 78 08/29/24 04:30 Respiratory Rate 17 08/29/24 04:30 Blood Pressure 107/68 08/29/24 03:08 Pulse Oximetry 98 08/29/24 04:30 Oxygen Delivery Method Room Air 08/29/24 02:20 MDM - Syncope MDM Narrative Medical decision making narrative: This 53-year-old female is brought to the emergency department by her and [id number] after she had a syncopal event at home this morning. The patient states that her recently had back surgery and was moaning in pain in bed. She got up from sleep and went to get him pain medication and then went to the kitchen. After getting to the kitchen she became dizzy and fell striking the back of her head on the floor. She was briefly unconscious. The patient's [id number] states she was pale and diaphoretic. After regaining consciousness she was able to get up and was brought to the emergency department by private vehicle. Her GCS is 15. She has some tenderness in her right posterior occipital region where she has a small hematoma. She had no cervical spine tenderness. Her neuroexam was normal. She denied any chest pain or shortness of breath. She does admit that after getting up from passing out she went to the bathroom and had a large amount of diarrhea. She is not having any abdominal pain at this time. An EKG done upon arrival was a sinus rhythm at 59 bpm with a first-degree AV block. An IV was placed and she was medicated with IV fluids and oral tylenol. She was taken to the CT scanner and CT scan of the head and cervical spine were ordered. The CT scans are normal. Routine labs are reviewed. She has a normal white count and hemoglobin. Electrolytes are normal with the exception of a potassium of 2.8. Troponin was normal. 1 view chest x-ray was reviewed by myself and is negative for acute findings. On reevaluation the patient is feeling better. She is hungry and thirsty and was given water and peanut butter crackers. Her potassium of 2.8 was replaced orally and parenterally. The patient states that she typically has low potassium. She states that is either low or borderline low. 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 Medical Records Medical records narrative: The [address] [address] [address] Scan Report Signed Patient: PARISA BRICENO MR#: [id number] : 1970 Acct:[id number] Age/Sex: 53 / F ADM Date: 08/29/24 Loc: ER Attending Dr: Ordering Physician: Poppy Larson Date of Service: 08/29/24 Procedure(s): CT head/brain wo con Accession Number(s): [id number] cc: LASHANDA KING~ The [address] [address] Patient Name: PARISA BRICENO MRN: [id number] date: 1970 Sex: F Assigned Patient Location: ER Current Patient Location: ER Accession/Order Number: [id number] Exam Date: 08/29/2024 02:50 Report Date: 08/29/2024 03:34 At the request of: POPPY MARKER Procedure: CT head/brain wo con EXAM: CT head/brain wo con INDICATION: 53 years old; Female. Syncope. Closed head trauma. TECHNIQUE: CT Head (ax/cor/sag reformats). Ionizing radiation dose reduced via iterative reconstruction/FBP blend and body size kV/mA adjustment. Comparison: None FINDINGS: POSTOPERATIVE CHANGES: None. BRAIN PARENCHYMA: No intraparenchymal or extra-axial hemorrhage. No mass effect. No midline shift or herniation. Normal sequeira/white differentiation. VENTRICLES/EXTRA-AXIAL SPACES: Normal for patient's age. SINUSES/MASTOIDS: The sinuses are clear although the paranasal sinuses are not completely included. Mastoids and middle ears are clear. MSK: No displaced or depressed calvarial fracture. OTHER: No hyperdense intraluminal thrombus. Vascular calcifications are present. TECHNIQUE: CT imaging of the cervical spine was performed. IV contrast: None. Dose reduction techniques were achieved by using automated exposure control and/or adjustment of mA and/or kV according to patient size and/or use of iterative reconstruction technique. COMPARISON: None available. FINDINGS: POSTOPERATIVE CHANGES: None. ALIGNMENT: Nonspecific straightening of the normal cervical curve. COMPRESSION FRACTURES: No fracture or vertebral body collapse. No bone displacement. No asymmetric widening of the facets. Incidental note is made of congenital fusion of C7 and T1 across the disc space as well as the posterior elements. PREVERTEBRAL SOFT TISSUES: Normal. CRANIOCERVICAL JUNCTION: There is a normal relationship of the occipital condyles, lateral masses of C1, and articular surfaces of C2. The base of the dens and body of C2 are intact. There is narrowing of the predental space with spurring arising from the anterior arch of C1. POSTERIOR FOSSA: The cerebellar tonsils are above the foramen magnum. Disc levels: C2-C3: No disc herniation. No spinal canal or foraminal narrowing. C3-C4: No disc herniation. No spinal canal or foraminal narrowing. C4-C5: No disc herniation. No spinal canal or foraminal narrowing. C5-C6: Disc space narrowing posteriorly. Anterior osteophyte formation. Facet degeneration. Central canal patent. Neural foramina patent. C6-C7: Facet degeneration bilaterally worse on the left than the right. Central canal patent. Neural foramina patent. C7-T1: Congenital fusion. Central canal patent. Neural foramina patent. UPPER THORACIC SPINE: At T1-T2 and T2-T3, Beam hardening artifacts. Central canal patent. Neural foramina patent. OTHER: No thyroid nodule or adenopathy. CT/CT head/brain wo con IMPRESSION: 1. No acute intracranial abnormality. No hemorrhage or mass effect. 2. No cervical fracture or bone displacement. 3. Congenital fusion of C6 and C7. Electronically authenticated by: GARCIA OHARA Date: 08/29/2024 03:34 Lab Data Attestation: I reviewed the patient's lab results. Labs: Lab Results 08/29/24 Range/Units 02:30 WBC 4.8 (4.0-11.0) 10^3/uL RBC 3.98 L (4.20-5.40) 10^6/uL Hgb 13.2 (12.0-16.0) g/dL Hct 36.6 (36.0-48.0) % MCV 92.0 (81.0-99.0) fL MCH 33.2 (26.7-34.0) pg MCHC 36.1 H (29.9-35.2) g/dL RDW 12.0 (11.0-15.0) % Plt Count 274 (150-450) 10^3/uL MPV 8.5 L (9.5-13.5) fL Neut % (Auto) 59.0 (43.0-75.0) % Lymph % (Auto) 34.0 (20.5-60.0) % [place] % (Auto) 5.8 (1.7-12.0) % Eos % (Auto) 0.8 L (0.9-7.0) % Baso % (Auto) 0.2 (0.2-2.0) % Neut # (Auto) 2.8 (1.4-6.5) 10^3/uL Lymph # (Auto) 1.6 (1.2-3.8) 10^3/uL [place] # (Auto) 0.3 (0.3-0.8) 10^3/uL Eos # (Auto) 0.0 (0.0-0.7) 10^3/uL Baso # (Auto) 0.0 (0.0-0.1) 10^3/uL Abs Immat Gran (auto) 0.01 (0.00-0.03) 10^3/uL Imm/Tot Granulo (auto) 0.2 (0.0-0.5) % Sodium 139 (136-145) mmol/L Potassium 2.8 L* (3.5-5.1) mmol/L Chloride 100 (98-107) mmol/L Carbon Dioxide 26.5 (21.0-32.0) mmol/L Anion Gap 15.3 BUN 12.0 (7.0-18.0) mg/dL Creatinine 0.79 (0.55-1.02) mg/dL Est GFR ( Amer) >60 (>=60 mL/min/1.73m^2) Est GFR (Non-Af Amer) >60 (>=60 mL/min/1.73m^2) BUN/Creatinine Ratio 15.2 Glucose 121 H (74-106) mg/dL Calcium 9.8 (8.5-10.1) mg/dL Total Bilirubin 1.1 H (0.2-1.0) mg/dL AST 16 (15-37) U/L ALT 26 (14-59) U/L Alkaline Phosphatase 75 (46-116) U/L Troponin I High Sens <4.0 L (4.0-51.3) pg/mL Total Protein 7.6 (6.4-8.2) g/dL Albumin 4.0 (3.4-5.0) g/dL Globulin 3.6 g/dL Albumin/Globulin Ratio 1.1 ECG Data Attestation: I personally reviewed and interpreted this ECG as follows: (Sinus rhythm at 59 bpm, first-degree AV block, long QTc interval at 465 ms, no acute ST segment elevation or T wave inversion) Discharge Plan Discharge Chief Complaint: Dizziness Clinical Impression: Syncope, Acute hypokalemia, Closed head injury with brief loss of consciousness Patient Disposition: Home, Self-Care Time of Disposition Decision: 05:09 Condition: Good Prescriptions / Home Meds: No Action phentermine 37.5 mg tablet losartan-hydrochlorothiazide 100-25 mg tablet simvastatin 20 mg tablet Print Language: Greenlandic Instructions: Hypokalemia (ED), Syncope (ED) Referrals: LASHANDA KING [Primary Care Provider] - 1 week
[2024-08-29 03:04] LABS: Alanine Aminotransferase 26 U/L (14-59); Albumin Globulin Ratio 1.1; Alkaline Phosphatase 75 U/L (46-116); Anion Gap 15.3; Aspartate Amino Transferase 16 U/L (15-37); BUN Creatinine Ratio 15.2; Bilirubin Total 1.1 mg/dL (0.2-1.0); Calcium 9.8 mg/dL (8.5-10.1); Carbon Dioxide 26.5 mmol/L (21.0-32.0); Chloride 100 mmol/L (98-107); Estimated GFR (African America >60 (>=60 mL/min/1.73m^2); Estimated GFR (Non-African Ame >60 (>=60 mL/min/1.73m^2); Globulin 3.6 g/dL; Glucose 121 mg/dL (74-106); Sodium 139 mmol/L (136-145); Total Protein 7.6 g/dL (6.4-8.2); Troponin I High Sensitivity <4.0 pg/mL (4.0-51.3)
[2024-08-29] MEDS: ACETAMINOPHEN 325 MG TABLET 650 MG PO (03:05)
[2024-08-29] MEDS: 0.9 % SODIUM CHLORIDE 1,000 ML 1000 ML IV (03:09)
[2024-08-29 03:15] LABS: Potassium 2.8 mmol/L (3.5-5.1)
[2024-08-29] MEDS: POTASSIUM CHLORIDE 10 MEQ ER TABLET 40 MEQ PO (03:49)
[2024-08-29] MEDS: POTASSIUM CHLORIDE IN WATER 10 MEQ/100 ML PREMIX 100 MEQ IV ×2 (03:54→04:37)
--- NOTE | 2024-08-29 05:50 | ECG_ITS ---
The [facility] Test Date: 2024-08-29 Pat Name: PARISA BRICENO Department: Room: - Gender: Female Shank Breaker: : 1970 Requested By: JORGE ALBERTO FUNK Order Number: [id number] Reading MD: JORGE ALBERTO FUNK Measurements Intervals [place] Rate: 59 P: 51 FL: 212 QRS: 85 QRSD: 102 T: 90 QT: 466 QTc: 465 Interpretive Statements 1100 Sinus rhythm Non-Specific T wave inversion in aVL 2231 First degree AV block 8304 Long QTc interval 9150 abnormal ECG No previous ECG available for comparison Electronically Signed On 08-29-2024 6:03:38 EST by JORGE ALBERTO FUNK
== END 2024-08-29 05:37 | disposition home or self-care (01) ==
PROVIDERS: Emergency Provider Emergency Medicine
DX: S06.9X1A Unspecified intracranial injury with loss of consciousness of 30 minutes or less, initial encounter (principal); R55 Syncope and collapse; E87.6 Hypokalemia; W19.XXXA Unspecified fall, initial encounter
CPT/HCPCS: 36415; 70450; 71045; 72125; 80053; 84484; 85025; 93005; 96361; 96365; 96366; 96368; 99285; J3480

== ENCOUNTER 2025-07-24 07:37 | Outpatient (OUT) | payer BC, SELFPAY ==
--- OUTSIDE RECORDS SUMMARY | 2025-07-24 07:42 | XMS_ITS | CCD ---
Author Organization [facility] Care Team Providers Care Canopy Stringer Name Role Phone Angi Park Primary Care Provider CARLOS LOPES Referring Unavailable ANGI PARK Primary Care Unavailable SHAIKH MONTOYA Admitting Unavailable DR ANGI PARK Primary Care Unavailable SHAIKH MONTOYA Attending Unavailable SHAIKH MONTOYA Consulting Unavailable DR ANGI PARK Primary Care Unavailable AICHHOLZ, SOFTWARE DESIGN ENGINEER GERRY Attending Unavailable AICHHOLZ, SOFTWARE DESIGN ENGINEER GERRY Consulting Unavailable AICHHOLZ, SOFTWARE DESIGN ENGINEER GERRY Admitting Unavailable DR ANGI PARK Primary Care Unavailable SHAIKH MONTOYA Attending Unavailable SHAIKH MONTOYA Consulting Unavailable SHAIKH MONTOYA Admitting Unavailable SHAIKH MONTOYA Primary Care Physician Shaikh Montoya Attending Unavailable Shaikh Montoya Primary Care Unavailable Shaikh Montoya Admitting Unavailable MD Miguelito Montoya Primary Care Provider MD Miguelito Montoya Attending Provider Shaikh Montoya MD Primary Care Provider [phone] MS. NORMA VIRK Primary Care P hysician Nkechi Read Referring Unavailable Nkechi Read Attending Unavailable Nkechi Read Admitting Unavailable NORMA VIRK Primary Care UnavailBj Torres MD Primary Care Provider [phone] Sully THERMITE WELDER, Norma Unavailable Sully THERMITE WELDER, Norma Unavailable [phone] BJ ALANIS Attending Unavailable BJ ALANIS Attending Unavailable FAWWAD, Attending Unavailable FAWWAD, Attending Unavailable FAWWAD, Attending Unavailable VIKR, NORMA Attending Unavailabl e VIRK, NORMA Attending Unavailabl e VIRK, NORMA Attending Unavailabl e VIRK, NORMA Attending Unavailabl e Nikki Humphreys DO Primary Care Provider Nikki Humphreys DO Attending Provider [phone] Allergies Allergy Classification Reported Allergen(s) Allergy Type Date of Onset Reaction(s) Facility (2 sources) Codeine; Translations: [codeine] Drug Allergy [facility] Repository (20 sources) Codeine; Translations: [codeine] Drug Allergy 4 Dizziness (finding), Syncope (disorder), Dizziness, Other, Unknown [facility] Medications Current Medications Medication Drug Class(es) Dates [...] Start: 01-27-2011 take 1 tablet by laurence th once daily hydrochlorothiazide-lisinopril 12.5 mg-1 0 mg Oral 1 tab(s), Oral, Daily, tab(s), Refill(s) 0 Start Date: 01/27/11 Status: Ordered hydroCHLOROthiazide 12.5 mg / losartan potassium 50 mg oral tablet (16 sources) Thiazide Diuretic, Angiotensin 2 Receptor Gokul Start: 07-16-2025 take 1 tablet by mouth once daily Losartan-Hydrochlorothiazide 50-12.5 mg tablet Active 1 TAB PO Daily July 16, 2025 12:00am Complies with drug therapy Start: 12-12-2024 take 1 tablet by laurence th once daily losartan-hydroCHLOROthiazide (Hyzaar) 50-12.5 MG tablet Indications: Primary hypertension (CMS/HCC) Take 1 tablet by mouth Daily 90 tablet 3 12/12/2024 Active Start: 02-13-2024 End: 09-10-2024 take 1 tablet by mouth once daily losartan-hydroCHLOROthiazide (Hyzaar) 10 0-25 MG tablet Indications: Primary hypertension (CMS/HCC) TAKE 1 TABLET BY MOUTH DAILY 90 tablet 1 02/13/2024 09/10/2024 Discontinued (Side effects) loratadine 10 mg oral capsule (1 source) Start: 07-16-2025 take 1 capsule by mouth once daily Loratadine 10 mg capsule Active 10 MG PO Daily July 16, 2025 12:00am Complies with drug therapy losartan potassium 100 mg oral tablet (17 sources) Angiotensin 2 Receptor Gokul Start: 09-10-2024 End: 11-04-2025 take 1 tablet by mouth once daily losartan (Cozaar) 100 MG tablet Indications: Primary hypertension (CMS/HCC) Take 1 tablet (100 mg) by mouth Daily 30 tablet 11 11/04/2024 12/12/2024 Discontinued Multivitamin tablet (1 source) Start: 07-16-2025 take 1 tablet by mouth once daily Multivitamin tablet Active 1 TAB PO Daily July 16, 2025 12:00am Complies with drug therapy simvastatin 20 mg oral tablet (20 sources) HMG-CoA Reductase Inhibitor Start: 07-16-2025 take 1 tablet by mouth once daily Simvastatin 20 mg tablet Active 20 MG PO Daily July 16, 2025 12:00am Complies with drug therapy Start: 01-23-2024 End: 2024 take 1 tablet by mouth at bedtime simvastatin (Zocor) 20 MG tablet Indications: Other hyperlipidemia (CMS/HCC) Take 1 tablet (20 mg) by mouth at bedtime 90 tablet 2024 Active Completed/Discontinued Medications Medication Drug Class(es) Dates Sig (Normalized) Sig (Original) phentermine hydrochloride 37.5 mg oral tablet (20 sources) Sympathomimetic Amine Anorectic Start: 10-20-2024 End: 02-13-2025 take 30-30.9 tablets by mouth before mealtime phentermine (Adipex-P) 37.5 MG tablet Indications: Class 1 obesity due to excess calories without serious comorbidity with body mass index (BMI) of 30.0 to 30.9 in adult Take 1 tablet (37.5 mg) by mouth in the morning. Take before meals. 30 tablet 12/12/2024 01/14/2025 Discontinued (Reorder) Start: 04-17-2024 End: 10-10-2024 take 32-32.9 tablets by mouth before mealtime phentermine (Adipex-P) 37.5 MG tablet Indications: Class 1 obesity due to excess calories without serious comorbidity with body mass index (BMI) of 32.0 to 32.9 in adult Take 1 tablet (37.5 mg) by mouth in the morning. Take before meals. 30 tablet 06/18/2024 07/15/2024 Discontinued (Reorder) Problems Active Problems Problem Classification Problem Date Documented Da te Episodic/Chronic Abdominal pain (3 sources) C/O pelvic pain 01-27-2011 Episodic Disorders of lipid metabolism (20 sources) Hyperlipidemia, unspecified; Translations: [Hyperlipidemia] Onset: 12-12-2021 Chronic Essential hypertension (20 sources) Essential (primary) hypertension; Translations: [Hypertensive disorder] Onset: 09-27-2021 Chronic Menstrual disorders (3 sources) Menorrhagia 01-02-2014 Chronic Osteoarthritis (1 source) Osteoarthritis of left patellofemoral joint; Translations: [Osteoarthritis of left patellofemoral joint] Other connective tissue disease (2 sources) Ganglion cyst of left dorsal wrist; Translations: [Ganglion, left wrist] 07-16-2025 Episodic Other gastrointestinal disorders (3 sources) Pelvic mass 01-27-2011 Episodic Other non-traumatic joint disorders (2 sources) Disorder of shoulder; Translations: [Other specified joint disorders, left shoulder] 07-16-2025 Episodic Other nutritional; endocrine; and metabolic disorders (20 sources) Obesity caused by energy imbalance; Translations: [Class 1 obesity due to excess calories without serious comorbidity with body mass index (BMI) of 30.0 to 30.9 in adult] Onset: 03-10-2024 04-17-2024 Chronic Other nutritional; endocrine; and metabolic disorders (4 sources) Body mass index 25-29 - overweight; Translations: [Overweight] Onset: 03-10-2024 01-14-2025 Episodic Other screening for suspected conditions (not mental disorders or infectious disease) (1 source) Encounter for screening for diabetes mellitus; Translations: [ENCOUNTER FOR SCREENING FOR DM] Onset: 09-27-2021 Episodic Unclassified (1 source) M25.812 - Other specified joint disorders, left shoulder,M67.432 - Ganglion, left wrist Past or Other Problems Problem Classification Problem Date Documented Da te Episodic/Chronic Other ear and sense organ disorders (20 sources) Ear sensations - finding; Translations: [Other specified disorders of right ear] Onset: 03-10-2024 Resolved: 12-12-2024 03-10-2024 Episodic Results Test Name Value Interpretation [...] VERY IMPORTANT TO YOUR HEALTH. THE CURRENT [employer]PREHENSIVE CANCER [...] Dev Denis MD Transcribed by: LIZANDRO Technologist: [facility] Assessment: BI-RADS Category 1-Negative Recommendation: Normal interval follow-up Normal [facility] Albumin [Mass/volume] in Ser um or PlasmaOrdered By: Shaikh Jan on 11-02-2022 Albumin [Mass/Vol] 4.3 g/dL 3.2-5.5 [facility] Basophils Auto (Bld) [#/Vol] Ordered By: Shaikh Jan on 11-02-2022 Basophils (Bld) [#/Vol] 0.0 10*3/uL 0.0-0.2 [facility] Basophils/100 WBC Auto (Bld) Ordered By: Shaikh Jan on 11-02-2022 Basophils/100 WBC (Bld) 0.5 % . [facility] Cholesterol [Mass/volume] in Serum or PlasmaOrdered By: Shaikh Jan on 11-02-2022 Cholesterol [Mass/Vol] 157 mg/dL 140-200 [facility] Comment on above: Chol less than 200 m g/dl low riskChol 201-239 mg/dl borderline riskChol 240 mg/dl and greater high risk Cholesterol in LDL Calc [Mas s/Vol]Ordered By: Shaikh Jan on 11-02-2022 Cholesterol in LDL [Mass/Vol] 84 mg/dL 0-100 [facility] Comment on above: LDL ATP III CLASSIFI CATIONLDL less than 100 mg/dL OptimalLDL 100-129 mg/dL Near or above optimalLDL 130-159 mg/dL Borderline highLDL 160-189 mg/dL HighLDL greater than 189 mg/dL Very high Cholesterol in VLDL Calc [Ma ss/Vol]Ordered By: Shaikh Jan on 11-02-2022 Cholesterol in VLDL [Mass/Vol] 22 mg/dL [facility] Complete Blood Count Auto Di ffon 11-02-2022 Basophils (Bld) [#/Vol] 0.0 10*3/uL Normal 0.0-0.2 [facility] Comment on above: Result Comment: PERF ORMED BY: [place] [address] PATHOLOGIST WE[employer] APPLICATIONS ARCHITECT NAKUL DOWELL M.D. Performed By: #### L IPID, CBC, CMP #### [address] Basophils/100 WBC (Bld) 0.5 % Normal . [facility] Comment on above: Performed By: #### L IPID, CBC, CMP #### [facility] [address] [place] [address] Eosinophils (Bld) [#/Vol] 0.1 10*3/uL Normal 0.0-0.45 [facility] Comment on above: Performed By: #### L IPID, CBC, CMP #### [address] Eosinophils/100 WBC (Bld) 1.2 % Normal . [facility] Comment on above: Performed By: #### L IPID, CBC, CMP #### [address] Erythrocyte distribution width (RBC) [Ratio] 12.7 % Normal 11.9-15.3 [facility] Comment on above: Performed By: #### L IPID, CBC, CMP #### [facility] [address] [place] [address] Hematocrit (Bld) [Volume fraction] 40.2 % Normal 34.0-46.4 [facility] Comment on above: Performed By: #### L IPID, CBC, CMP #### [facility] [address] [place] [address] [place] Hemoglobin (Bld) [Mass/Vol] 13.8 g/dL Normal 11.8-15.4 [facility] Comment on above: Performed By: #### L IPID, CBC, CMP #### [facility] [address] Lymphocytes (Bld) [#/Vol] 3.3 10*3/uL Normal 1.00-4.8 [facility] Comment on above: Performed By: #### L IPID, CBC, CMP #### [facility] [address] Lymphocytes/100 WBC (Bld) 41.8 % Normal . [facility] Comment on above: Performed By: #### L IPID, CBC, CMP #### [address] MCH (RBC) [Entitic mass] 32.9 pg Normal 24.7-34.3 [facility] Comment on above: Performed By: #### L IPID, CBC, CMP #### [address] MCV (RBC) [Entitic vol] 96.1 fL Normal 80-100 [facility] Comment on above: Performed By: #### L IPID, CBC, CMP #### [facility] [address] Mean Corpuscular HGB Conc 34.2 g/dL Normal 32.0-35.0 [facility] Comment on above: Performed By: #### L IPID, CBC, CMP #### [facility] [address] [place] [address] [place] Monocytes (Bld) [#/Vol] 0.5 10*3/uL Normal 0.0-0.8 [facility] Comment on above: Performed By: #### L IPID, CBC, CMP #### [facility] [address] [place] [address] [place] Monocytes/100 WBC (Bld) 6.3 % Normal . [facility] Comment on above: Performed By: #### L IPID, CBC, CMP #### [facility] [address] Neutrophils (Bld) [#/Vol] 4.0 10*3/uL Normal 1.8-7.7 [facility] Comment on above: Performed By: #### L IPID, CBC, CMP #### [address] Neutrophils/100 WBC (Bld) 50.2 % Normal . [facility] Comment on above: Performed By: #### L IPID, CBC, CMP #### [address] NRBC% 0.1 /100{WBC} Normal 0-0.5 [facility] Comment on above: Performed By: #### L IPID, CBC, CMP #### [address] Platelet mean volume (Bld) [Entitic vol] 7.0 fL Normal 6.3-10.7 [facility] Comment on above: Performed By: #### L IPID, CBC, CMP #### [address] Platelets (Bld) [#/Vol] 307 10*3/uL Normal 150-450 [facility] Comment on above: Performed By: #### L IPID, CBC, CMP #### [address] RBC (Bld) [#/Vol] 4.18 10*6/uL Normal 3.60-5.00 [facility] Comment on above: Performed By: #### L IPID, CBC, CMP #### [place] [address] [place] WBC (Bld) [#/Vol] 7.9 10*3/uL Normal 3.8-11.6 [facility] Comment on above: Performed By: #### L IPID, CBC, CMP #### [address] Comprehensive Metabolic Pane kenzie 01-12-2023 Albumin [Mass/Vol] 4.3 g/dL Normal 3.2-5.5 [facility] Comment on above: Performed By: #### L IPID, CBC, CMP #### [address] Albumin/Globulin [Mass ratio] 1.8 {ratio} Normal [facility] Comment on above: Performed By: #### L IPID, CBC, CMP #### [address] ALP [Catalytic activity/Vol] 61 U/L Normal 32-92 [facility] Comment on above: Performed By: #### L IPID, CBC, CMP #### [address] ALT [Catalytic activity/Vol] 32 U/L Normal 10-60 [facility] Comment on above: Performed By: #### L IPID, CBC, CMP #### [address] Anion gap [Moles/Vol] 13.1 mmol/L Normal 6.0-15.0 [facility] Comment on above: Performed By: #### L IPID, CBC, CMP #### [address] AST [Catalytic activity/Vol] 25 U/L Normal 10-42 [facility] Comment on above: Performed By: #### L IPID, CBC, CMP #### [address] Bilirubin [Mass/Vol] 1.3 mg/dL High 0.3-1.2 [facility] Comment on above: Result Comment: Samp les from patients who have taken Naproxen have shown spurious elevation in Total Bilirubin levels. A metabolite of Naproxen, O-desmethylnaproxen, has been shown to interfere with the Javon-Keyla method for measuring Total Bilirubin. Performed By: #### L IPID, CBC, CMP #### [address] Calcium [Mass/Vol] 9.5 mg/dL Normal 8.2-10.2 [facility] Comment on above: Performed By: #### L IPID, CBC, CMP #### [facility] [address] Chloride [Moles/Vol] 101 mmol/L Normal 95-114 [facility] Comment on above: Performed By: #### L IPID, CBC, CMP #### [address] CO2 [Moles/Vol] 24.8 mmol/L Normal 22.0-30.0 [facility] Comment on above: Performed By: #### L IPID, CBC, CMP #### [address] Creatinine [Mass/Vol] 0.69 mg/dL Normal 0.44-1.03 [facility] Comment on above: Performed By: #### L IPID, CBC, CMP #### [address] Estimated GFR ( Deysi > 60 [facility] Comment on above: Result Comment: GFR estimated reference range: According to KDOQI guidelines, <60 ml/min/1.73m2 is sufficient to diagnose a patient with chronic kidney disease. Performed By: #### L IPID, CBC, CMP #### [address] Estimated GFR (Non- Am > 60 [facility] Comment on above: Performed By: #### L IPID, CBC, CMP #### [address] Globulin (S) [Mass/Vol] 2.4 g/dL Normal [facility] Comment on above: Performed By: #### L IPID, CBC, CMP #### [address] Glucose [Mass/Vol] 75 mg/dL Normal 70-100 [facility] Comment on above: Result Comment: [facility] Glucose Reference Range is dependent on time and content of last meal. Glucose of more than 200 mg/dL in a nonstressed, ambulatory subject supports the diagnosis of Diabetes Mellitus. ADA recommended reference range Performed By: #### L IPID, CBC, CMP #### [facility] [address] Potassium [Moles/Vol] 3.9 mmol/L Normal 3.5-5.1 [facility] Comment on above: Performed By: #### L IPID, CBC, CMP #### [facility] [address] Protein [Mass/Vol] 6.7 g/dL Normal 6.1-7.9 [facility] Comment on above: Performed By: #### L IPID, CBC, CMP #### [facility] [address] Sodium [Moles/Vol] 135 mmol/L Low 136-146 [facility] Comment on above: Performed By: #### L IPID, CBC, CMP #### [facility] [address] Urea nitrogen [Mass/Vol] 13 mg/dL Normal 9-23 [facility] Comment on above: Performed By: #### L IPID, CBC, CMP #### [facility] [address] Creatinine and Glomerular fi ltration rate.predicted panel (S/P/Bld)Ordered By: Shaikh Jan on 11-02-2022 Creatinine [Mass/Vol] 0.69 mg/dL 0.44-1.03 [facility] Eosinophils Auto (Bld) [#/Vo l]Ordered By: Shaikh Jan on 11-02-2022 Eosinophils (Bld) [#/Vol] 0.1 10*3/uL 0.0-0.45 [facility] Eosinophils/100 WBC Auto (Bl d)Ordered By: Shaikh Jan on 11-02-2022 Eosinophils/100 WBC (Bld) 1.2 % . [facility] Erythrocyte distribution wid th Auto (RBC) [Ratio]Ordered By: Shaikh Jan on 01-12-2023 Erythrocyte distribution width (RBC) [Ratio] 12.7 % 11.9-15.3 [facility] Estimated glomerular filtrat ion rate (GFR) non- AmericanOrdered By: Shaikh Jan on 11-02-2022 GFR/1.73 sq M.predicted among non-blacks MDRD (S/P/Bld) [Vol rate/Area] > 60 mL/Min [facility] Globulin Calc (S) [Mass/Vol] Ordered By: Shaikh Jan on 11-02-2022 Globulin (S) [Mass/Vol] 2.4 g/dL [facility] Hematocrit Auto (Bld) [Volum e fraction]Ordered By: Shaikh Jan on 11-02-2022 Hematocrit (Bld) [Volume fraction] 40.2 % 34.0-46.4 [facility] Hemoglobin [Mass/volume] in BloodOrdered By: Shaikh Jan on 11-02-2022 Hemoglobin (Bld) [Mass/Vol] 13.8 g/dL 11.8-15.4 [facility] Leukocytes [#/volume] correc barrett for nucleated erythrocytes in Blood by Automated counOrdered By: Shaikh Jan on 11-02-2022 WBC corrected for nucl RBC Auto (Bld) [#/Vol] 7.9 10*3/uL 3.8-11.6 [facility] Lipid Panelon 11-02-2022 Cholesterol [Mass/Vol] 157 mg/dL Normal 140-200 [facility] Comment on above: Result Comment: Chol less than 200 mg/dl low risk Chol 201-239 mg/dl borderline risk Chol 240 mg/dl and greater high risk Performed By: #### L IPID, CBC, CMP #### [facility] [address] Cholesterol in HDL [Mass/Vol] 50 mg/dL Normal 35-85 [facility] Comment on above: Result Comment: HDL CHOL ATP-III CLASSIFICATION Cardiovascular Risk HDL > or equal to 60 mg/dL LOW HDL < 40 mg/dL HIGH Performed By: #### L IPID, CBC, CMP #### [facility] [address] Cholesterol.total/Soo sterol in HDL [Mass ratio] 3.1 {ratio} Normal <5.0 [facility] Comment on above: Result Comment: PERF ORMED BY: [place] [address] PATHOLOGIST WEB APPLICATIONS ARCHITECT NAKUL DOWELL M.D. Performed By: #### L IPID, CBC, CMP #### [facility] [address] [place] [address] LDL Cholesterol,Calculated 84 mg/dL Normal 0-100 [facility] Comment on above: Result Comment: LDL ATP III CLASSIFICATION LDL less than 100 mg/dL Optimal LDL 100-129 mg/dL Near or above optimal LDL 130-159 mg/dL Borderline high LDL 160-189 mg/dL High LDL greater than 189 mg/dL Very high Performed By: #### L IPID, CBC, CMP #### [address] Triglyceride w/Reflex 114 mg/dL Normal 35-149 [facility] Comment on above: Result Comment: TRIG ATP III CLASSIFICATION TRIG less than 150 mg/dL Normal TRIG 150-199 mg/dL Borderline high TRIG 200-500 mg/dL High TRIG greater than 500 mg/dL Very high Standard traceable to the Center for Disease Conrtrol and Prevention (CDC) test method. Performed By: #### L IPID, CBC, CMP #### [address] VLDL CHOLESTEROL 22 mg/dL Normal [facility] Comment on above: Performed By: #### L IPID, CBC, CMP #### [facility] [address] [place] [address] Lymphocytes Auto (Bld) [#/Vo l]Ordered By: Shaikh Jan on 11-02-2022 Lymphocytes (Bld) [#/Vol] 3.3 10*3/uL 1.00-4.8 [facility] Lymphocytes/100 WBC Auto (Bl d)Ordered By: Shaikh Jan on 11-02-2022 Lymphocytes/100 WBC (Bld) 41.8 % . [facility] MCH Auto (RBC) [Entitic mass ]Ordered By: Shaikh Jan on 11-02-2022 MCH (RBC) [Entitic mass] 32.9 pg 24.7-34.3 [facility] MCHC Auto (RBC) [Mass/Vol]Or dered By: Shaikh Jan on 11-02-2022 MCHC (RBC) [Mass/Vol] 34.2 g/dL 32.0-35.0 [facility] MCV Auto (RBC) [Entitic vol] Ordered By: Shaikh Jan on 11-02-2022 MCV (RBC) [Entitic vol] 96.1 fL 80-100 [facility] Monocytes Auto (Bld) [#/Vol] Ordered By: Shaikh Jan on 11-02-2022 Monocytes (Bld) [#/Vol] 0.5 10*3/uL 0.0-0.8 [facility] Monocytes/100 WBC Auto (Bld) Ordered By: Shaikh Jan on 11-02-2022 Monocytes/100 WBC (Bld) 6.3 % . [facility] Neutrophils Auto (Bld) [#/Vo l]Ordered By: Shaikh Jan on 11-02-2022 Neutrophils (Bld) [#/Vol] 4.0 10*3/uL 1.8-7.7 [facility] Neutrophils/100 WBC Auto (Bl d)Ordered By: Shaikh Jan on 11-02-2022 Neutrophils/100 WBC (Bld) 50.2 % . [facility] No Panel InformationOrdered By: Shaikh Jan on 11-02-2022 Estimated GFR () > 60 mL/Min [facility] Comment on above: GFR estimated refere nce range: According to KDOQI guidelines, <60 ml/min/1.73m2 is sufficient to diagnose a patient with chronic kidney disease. Pharmacy Creatinine Clearance (Chem N/A [facility] Nucleated erythrocytes [Pres ence] in Blood by Automated countOrdered By: Shaikh Jan on 11-02-2022 Nucleated RBC Auto Ql (Bld) 0.1 /100{WBC} 0-0.5 [facility] Platelet mean volume Auto (B ld) [Entitic vol]Ordered By: Shaikh Jan on 11-02-2022 Platelet mean volume (Bld) [Entitic vol] 7.0 fL 6.3-10.7 [facility] Platelets Auto (Bld) [#/Vol] Ordered By: Shaikh Jan on 11-02-2022 Platelets (Bld) [#/Vol] 307 10*3/uL 150-450 [facility] Protein [Mass/volume] in Ser um or PlasmaOrdered By: Shaikh Jan on 11-02-2022 Protein [Mass/Vol] 6.7 g/dL 6.1-7.9 [facility] RBC Auto (Bld) [#/Vol]Ordere d By: Shaikh Jan on 11-02-2022 RBC (Bld) [#/Vol] 4.18 10*6/uL 3.60-5.00 [facility] Serum or plasma alanine lynch otransferase measurement without P-5'-P (enzymatic activiOrdered By: Shaikh Jan on 11-02-2022 ALT No additional P-5'-P [Catalytic activity/Vol] 32 U/L 10-60 [facility] Serum or plasma albumin/glob ulin mass ratioOrdered By: Shaikh Jan on 11-02-2022 Albumin/Globulin [Mass ratio] 1.8 {ratio} [facility] Serum or plasma alkaline beatrice sphatase measurement (enzymatic activity/volume)Ordered By: Shaikh Jan on 11-02-2022 ALP [Catalytic activity/Vol] 61 U/L 32-92 [facility] Serum or plasma anion gap de terminationOrdered By: Shaikh Jan on 11-02-2022 Anion gap [Moles/Vol] 13.1 mmol/L 6.0-15.0 [facility] Serum or plasma aspartate am inotransferase measurement (enzymatic activity/volume)Ordered By: Shaikh Jan on 11-02-2022 AST [Catalytic activity/Vol] 25 U/L 10-42 [facility] Serum or plasma calcium kingston urement (mass/volume)Ordered By: Shaikh Jan on 11-02-2022 Calcium [Mass/Vol] 9.5 mg/dL 8.2-10.2 [facility] Serum or plasma chloride jose d surement (moles/volume)Ordered By: Shaikh Jan on 11-02-2022 Chloride [Moles/Vol] 101 mmol/L 95-114 [facility] Serum or plasma glucose kingston urement (mass/volume)Ordered By: Shaikh Jan on 11-02-2022 Glucose [Mass/Vol] 75 mg/dL 70-100 [facility] Comment on above: ADA recommended refe rence rangeRandom Glucose Reference Range is dependent on time and content of last meal. Glucose of more than 200 mg/dL in a nonstressed, ambulatory subject supports the diagnosis of Diabetes Mellitus. Serum or plasma high density lipoprotein (HDL) cholesterol measurementOrdered By: Shaikh Jan on 11-02-2022 Cholesterol in HDL [Mass/Vol] 50 mg/dL 35-85 [facility] Comment on above: HDL CHOL ATP-III CLA SSIFICATION Cardiovascular RiskHDL > or equal to 60 mg/dL LOWHDL < 40 mg/dL HIGH Serum or plasma potassium me asurement (moles/volume)Ordered By: Shaikh Jan on 11-02-2022 Potassium [Moles/Vol] 3.9 mmol/L 3.5-5.1 [facility] Serum or plasma sodium measu rement (moles/volume)Ordered By: Shaikh Jan on 11-02-2022 Sodium [Moles/Vol] 135 mmol/L 136-146 [facility] Serum or plasma total biliru bin measurement (mass/volume)Ordered By: Shaikh Jan on 11-02-2022 Bilirubin [Mass/Vol] 1.3 mg/dL 0.3-1.2 [facility] Comment on above: Samples from patient s who have taken Naproxen have shown spurious elevation in Total Bilirubin levels. A metabolite of Naproxen, O-desmethylnaproxen, has been shown to interfere with the Curtis method for measuring Total Bilirubin. Serum or plasma total carbon dioxide measurement (moles/volume)Ordered By: Shaikh Jan on 11-02-2022 CO2 [Moles/Vol] 24.8 mmol/L 22.0-30.0 [facility] Serum or plasma total choles terol/high density lipoprotein (HDL) cholesterol mass ratOrdered By: Shaikh Jan on 11-02-2022 Cholesterol.total/Soo sterol in HDL [Mass ratio] 3.1 {ratio} <5.0 [facility] Serum or plasma urea nitroge n measurement (mass/volume)Ordered By: Shaikh Jan on 11-02-2022 Urea nitrogen [Mass/Vol] 13 mg/dL 9- [facility] Triglyceride [Mass/volume] i n Serum or PlasmaOrdered By: Shaikh Jan on 11-02-2022 Triglyceride [Mass/Vol] 114 mg/dL 35-149 [facility] Comment on above: TRIG ATP III CLASSIF ICATIONTRIG less than 150 mg/dL NormalTRIG 150-199 mg/dL Borderline highTRIG 200-500 mg/dL High TRIG greater than 500 mg/dL Very highStandard traceable to the Center for Disease Conrtrol and Prevention (CDC) test method. WBC Auto (Bld) [#/Vol]Ordere d By: Shaikh Jan on 11-02-2022 WBC (Bld) [#/Vol] 7.9 10*3/uL 3.8-11.6 [facility] [place] Venous Reflux/Insuff, Obinna Loweron 10-31-2022 US [...] by Joseph Leslie on 10/31/2022 1301 Normal [facility] [employer] US Venous, Unilat, Lower Ext Lefton 10-31-2022 [...] by Joseph Leslie on 10/31/2022 1030 Normal [facility] LIPID PROFILEon 12-12-2021 CHOL-HDL RATIO NORM SEE BELOW Normal [facility] Comment on above: Result Comment: 3.3 - 4.4 LOW RISK 4.4 - 7.1 AVERAGE RISK 7.1 - 11.0 MODERATE RISK >11.0 HIGH RISK Performed By: #### A ST, LIPID, ALT #### [facility] [address] [address] [address] Edna Stark Cholesterol [Mass/Vol] 160 mg/dL Normal <=200 [facility] [place] Comment on above: Performed By: #### A ST, LIPID, ALT #### [facility] [address] [address] [address] Edna Stark Cholesterol in HDL [Mass/Vol] 55 mg/dL Normal [facility] Comment on above: Performed By: #### A ST, LIPID, ALT #### [facility] [address] [address] [address] Edna Stark Cholesterol in LDL [Mass/Vol] 79.2 mg/dL Normal [facility] Comment on above: Performed By: #### A ST, LIPID, ALT #### [facility] [address] [address] [address] Edna Stark Cholesterol.total/Soo sterol in HDL [Mass ratio] 2.9 {ratio} Normal [facility] Comment on above: Performed By: #### A ST, LIPID, ALT #### [facility] [address] [address] [address] Edna Stark HDL NORMAL > or = 60 mg/dl - LO W CARDIOVASCULAR RISK <40 mg/dl - HIGH CARDIOVASCULAR RISK Normal [facility] Comment on above: Performed By: #### A ST, LIPID, ALT #### [facility] [address] [address] [address] Edna Stark LDL CALC NORMAL SEE BELOW Normal [facility] Comment on above: Result Comment: <100 mg/dl OPTIMAL 100 - 129 mg/dl NEAR OR ABOVE OPTIMAL 130 - 159 mg/dl BORDERLINE HIGH 160 - 189 mg/dl HIGH >190 mg/dl VERY HIGH Performed By: #### A ST, LIPID, ALT #### [facility] [address] [address] [address] Edna Stark Triglyceride [Mass/Vol] 129 mg/dL Normal <=150 [facility] Comment on above: Performed By: #### A ST, LIPID, ALT #### [facility] [address] [address] [address] Edna Stark VLDL CALC 25.8 mg/dL Normal [facility] Comment on above: Performed By: #### A ST, LIPID, ALT #### [facility] [address] [address] [address] Edna Stark PROF CHEM 8 (BAS METB)on Anion gap [Moles/Vol] 14.0 mmol/L Normal [facility] Comment on above: Performed By: #### B MP #### [facility] [address] [place] [address] Dr. Edna Stark Calcium [Mass/Vol] 9.0 mg/dL Normal 8.4-10.2 [facility] Comment on above: Performed By: #### B MP #### [facility] [address] [place] [address] Dr. Edna Stark Chloride [Moles/Vol] 103 mmol/L Normal 98-107 [facility] Comment on above: Performed By: #### B MP #### [facility] [address] [place] [address] Dr. dEna Stark CO2 [Moles/Vol] 26.5 mmol/L Normal 22.0-30.0 [facility] Comment on above: Performed By: #### B MP #### [facility] [address] [address] [address] Edna Stark Creatinine [Mass/Vol] 0.62 mg/dL Normal 0.52-1.04 [facility] Comment on above: Performed By: #### B MP #### [facility] [address] [address] [address] Edna Stark EGFR-AF SERBIAN >60 Normal >=60 [facility] Comment on above: Performed By: #### B MP #### [facility] [address] [address] [address] Edna Stark EGFR-NON AF SERBIAN >60 Normal >=60 [facility] Comment on above: Performed By: #### B MP #### [facility] [address] [place] [address] Dr. Edna Stark Glucose [Mass/Vol] 88 mg/dL Normal 74-106 [facility] Comment on above: Performed By: #### B MP #### [facility] [address] [place] [address] Dr. Edna Stark Potassium [Moles/Vol] 3.5 mmol/L Normal 3.4-5.0 [facility] Comment on above: Performed By: #### B MP #### [facility] [address] [place] [address] Dr. Edna Stark Sodium [Moles/Vol] 140 mmol/L Normal 137-145 [facility] Comment on above: Performed By: #### B MP #### [facility] [address] [address] [address] Edna Stark Urea nitrogen [Mass/Vol] 12.0 mg/dL Normal 7.0-17.0 [facility] Comment on above: Performed By: #### B MP #### [facility] [address] [place] [address] Dr. Edna Stark Urea nitrogen/Creatinine [Mass ratio] 19.4 mg/mg Normal [facility] Comment on above: Performed By: #### B MP #### [facility] [address] [place] [address] Dr. Edna Knight 12-12-2021 AST [Catalytic activity/Vol] 28 U/L Normal 14-36 [facility] Comment on above: Performed By: #### A ST, LIPID, ALT #### [facility] [address] [place] [address] Dr. Edna Stark SGPTon 12-12-2021 ALT [Catalytic activity/Vol] 55 U/L Critically high 9-52 [facility] Comment on above: Performed By: #### A ST, LIPID, ALT #### [facility] [address] [place] [address] Dr. Edna Stark CBC AUTO DIFFon 09-21-2021 BASO # 0.0 103/ul Normal 0.0-0.1 [facility] Comment on above: Performed By: #### C BC #### [facility] [address] [place] [address] Dr. Edna Stark Basophils/100 WBC (Bld) 0.4 % Normal 0.2-2.0 [facility] Comment on above: Performed By: #### C BC #### [facility] [address] [place] [address] Dr. Edna Stark EO # 0.1 103/ul Normal 0.0-0.7 [facility] Comment on above: Performed By: #### C BC #### [facility] [address] [place] [address] Dr. Edna Stark Eosinophils/100 WBC (Bld) 1.3 % Normal 0.9-7.0 [facility] Comment on above: Performed By: #### C BC #### [facility] [address] [place] [address] Dr. Edna Stark Erythrocyte distribution width (RBC) [Ratio] 12.1 % Normal 11.0-15.0 [facility] Comment on above: Performed By: #### C BC #### [facility] [address] [place] [address] Dr. Edna Stark Hematocrit (Bld) [Volume fraction] 39.5 % Normal 36.0-48.0 [facility] Comment on above: Performed By: #### C BC #### [facility] [address] [place] [address] Dr. Edna Stark Hemoglobin (Bld) [Mass/Vol] 13.2 g/dL Normal 12.0-16.0 [facility] Comment on above: Performed By: #### C BC #### [facility] [address] [place] [address] Dr. Edna Stark IG # 0.02 10e3/ul Normal 0.00-0.03 [facility] Comment on above: Performed By: #### C BC #### [facility] [address] [place] [address] Dr. Edna Stark IG % 0.3 % Normal 0.0-0.5 [facility] Comment on above: Performed By: #### C BC #### [facility] [address] [place] [address] Dr. Edna Stark LYMPH # 2.4 103/ul Normal 1.2-3.8 [facility] Comment on above: Performed By: #### C BC #### [facility] [address] [place] [address] Dr. Edna tSark Lymphocytes/100 WBC (Bld) 35.8 % Normal 20.5-60.0 [facility] Comment on above: Performed By: #### C BC #### [facility] [address] [place] [address] Dr. Edna Stark MANUAL DIFF REQ NO Normal [facility] Comment on above: Performed By: #### C BC #### [facility] [address] [place] [address] Dr. Edna Stark MCH (RBC) [Entitic mass] 32.6 pg Normal 26.7-34.0 [facility] Comment on above: Performed By: #### C BC #### [facility] [address] [place] [address] Dr. Edna Stark MCHC (RBC) [Mass/Vol] 33.4 g/dL Normal 29.9-35.2 [facility] Comment on above: Performed By: #### C BC #### [facility] [address] [place] [address] Dr. Edna Stark MCV (RBC) [Entitic vol] 97.5 fL Normal 81.0-99.0 [facility] Comment on above: Performed By: #### C BC #### [facility] [address] [place] [address] Dr. Edna Stark MONO # 0.5 103/ul Normal 0.3-0.8 [facility] Comment on above: Performed By: #### C BC #### [facility] [address] [place] [address] Dr. Edna Stark Monocytes/100 WBC (Bld) 7.2 % Normal 1.7-12.0 [facility] Comment on above: Performed By: #### C BC #### [facility] [address] [place] [address] Dr. Edna Stark NEUT # 3.7 103/ul Normal 1.4-6.5 [facility] Comment on above: Performed By: #### C BC #### [facility] [address] [place] [address] Dr. Edna Stark Neutrophils/100 WBC (Bld) 55.0 % Normal 43.0-75.0 [facility] Comment on above: Performed By: #### C BC #### [facility] [address] [place] [address] Dr. Edna Stark Platelet mean volume (Bld) [Entitic vol] 9.2 fL Critically low 9.5-13.5 [facility] Comment on above: Performed By: #### C BC #### [facility] [address] [place] [address] Dr. Edna Stark PLT 270 103/ul Normal 150-450 [facility] Comment on above: Performed By: #### C BC #### [facility] [address] [place] [address] Dr. Edna Stark RBC 4.05 106/ul Critically low 4.20-5.40 [facility] Comment on above: Performed By: #### C BC #### [facility] [address] [address] [address] Edna Stark WBC 6.7 103/ul Normal 4.0-11.0 [facility] Comment on above: Performed By: #### C BC #### [facility] [address] [address] [address] Edna Stark GLYCOHEMOGLOBIN A1Con 2020 ADA RECOMMENDATION ADA THERAPEUTIC TARGET 6.0 - 7.0 ACTION SUGGESTED > 7.0 Normal [facility] Comment on above: Performed By: #### A 1C #### [facility] [address] [place] [address] Dr. Edna Stark Glucose [Mass/Vol] 114 mg/dL Normal [facility] Comment on above: Performed By: #### A 1C #### [facility] [address] [place] [address] Dr. Edna Stark HbA1c (Bld) [Mass fraction] 5.6 % Normal <=6.0 [facility] Comment on above: Performed By: #### A 1C #### [facility] [address] [place] [address] Dr. Edna tSark LIPID PROFILEon 09-21-2021 CHOL-HDL RATIO NORM SEE BELOW Normal [facility] Comment on above: Result Comment: 3.3 - 4.4 LOW RISK 4.4 - 7.1 AVERAGE RISK 7.1 - 11.0 MODERATE RISK >11.0 HIGH RISK Performed By: #### C MP, LIPID #### [facility] [address] [place] [address] Dr. Edna Stark Cholesterol [Mass/Vol] 239 mg/dL Critically high <=200 [facility] Comment on above: Performed By: #### C MP, LIPID #### [facility] [address] [place] [address] Dr. Edna Stark Cholesterol in HDL [Mass/Vol] 47 mg/dL Normal [facility] Comment on above: Performed By: #### C MP, LIPID #### [facility] [address] [address] [address] Edna Stark Cholesterol in LDL [Mass/Vol] 145.4 mg/dL Normal [facility] Comment on above: Performed By: #### C MP, LIPID #### [facility] [address] [place] [address] Dr. Edna Stark Cholesterol.total/Soo sterol in HDL [Mass ratio] 5.1 {ratio} Normal [facility] Comment on above: Performed By: #### C MP, LIPID #### [facility] [address] [place] [address] Dr. Edna Stark HDL NORMAL > or = 60 mg/dl - LO W CARDIOVASCULAR RISK <40 mg/dl - HIGH CARDIOVASCULAR RISK Normal [facility] Comment on above: Performed By: #### C MP, LIPID #### [facility] [address] [place] [address] Dr. Edna Stark LDL CALC NORMAL SEE BELOW Normal [facility] Comment on above: Result Comment: <100 mg/dl OPTIMAL 100 - 129 mg/dl NEAR OR ABOVE OPTIMAL 130 - 159 mg/dl BORDERLINE HIGH 160 - 189 mg/dl HIGH >190 mg/dl VERY HIGH Performed By: #### C MP, LIPID #### [facility] [address] [place] [address] Dr. Edna Stark Triglyceride [Mass/Vol] 233 mg/dL Critically high <=150 [facility] Comment on above: Performed By: #### C MP, LIPID #### [facility] [address] [place] [address] Dr. Edna Stark VLDL CALC 46.6 mg/dL Normal [facility] Comment on above: Performed By: #### C MP, LIPID #### [facility] [address] [address] [address] Edna Stark PROF 14(COMP METB)on 021 Albumin [Mass/Vol] 3.9 g/dL Normal 3.5-5.0 [facility] Comment on above: Performed By: #### C MP, LIPID #### [facility] [address] [place] [address] Dr. Edna Stark Albumin/Globulin [Mass ratio] 1.0 {ratio} Normal [facility] Comment on above: Performed By: #### C MP, LIPID #### [facility] [address] [place] [address] Dr. Edna Stark ALP [Catalytic activity/Vol] 74 U/L Normal 38-126 [facility] Comment on above: Performed By: #### C MP, LIPID #### [facility] [address] [address] [address] Edna Stark ALT [Catalytic activity/Vol] 39 U/L Normal 9-52 [facility] Comment on above: Performed By: #### C MP, LIPID #### [facility] [address] [address] [address] Edna Stark Anion gap [Moles/Vol] 10.3 mmol/L Normal [facility] Comment on above: Performed By: #### C MP, LIPID #### [facility] [address] [place] [address] Dr. Edna Stark AST [Catalytic activity/Vol] 20 U/L Normal 14-36 [facility] Comment on above: Performed By: #### C MP, LIPID #### [facility] [address] [address] [address] Edna Stark Bilirubin [Mass/Vol] 0.5 mg/dL Normal 0.2-1.3 [facility] Comment on above: Performed By: #### C MP, LIPID #### [facility] [address] [address] [address] Edna Stark Calcium [Mass/Vol] 9.4 mg/dL Normal 8.4-10.2 [facility] Comment on above: Performed By: #### C MP, LIPID #### [facility] [address] [address] [address] Edna Stark Chloride [Moles/Vol] 101 mmol/L Normal 98-107 [facility] Comment on above: Performed By: #### C MP, LIPID #### [facility] [address] [address] [address] Edna Stark CO2 [Moles/Vol] 31.6 mmol/L Critically high 22.0-30.0 [facility] Comment on above: Performed By: #### C MP, LIPID #### [facility] [address] [address] [address] Edna Stark Creatinine [Mass/Vol] 0.72 mg/dL Normal 0.52-1.04 [facility] Comment on above: Performed By: #### C MP, LIPID #### [facility] [address] [address] [address] Edna Stark EGFR-AF SERBIAN >60 Normal >=60 [facility] Comment on above: Performed By: #### C MP, LIPID #### [facility] [address] [address] [address] Edna Stark EGFR-NON AF SERBIAN >60 Normal >=60 [facility] Comment on above: Performed By: #### C MP, LIPID #### [facility] [address] [address] [address] Edna Stark Globulin (S) [Mass/Vol] 4.0 g/dL Normal [facility] Comment on above: Performed By: #### C MP, LIPID #### [facility] [address] [address] [address] Edna Stark Glucose [Mass/Vol] 105 mg/dL Normal 74-106 [facility] Comment on above: Performed By: #### C MP, LIPID #### [facility] [address] [address] [address] Edna Stark Potassium [Moles/Vol] 3.9 mmol/L Normal 3.4-5.0 [facility] Comment on above: Performed By: #### C MP, LIPID #### [facility] [address] [address] [address] Edna Stark Protein [Mass/Vol] 7.9 g/dL Normal 6.1-8.2 [facility] Comment on above: Performed By: #### C MP, LIPID #### [facility] [address] [address] [address] Edna Stark Sodium [Moles/Vol] 139 mmol/L Normal 137-145 [facility] Comment on above: Performed By: #### C MP, LIPID #### [facility] [address] [place], [place] [address] Dr. Edna Stark Urea nitrogen [Mass/Vol] 20.0 mg/dL Critically high 7.0-17.0 [facility] Comment on above: Performed By: #### C MP, LIPID #### [facility] [address] [place], [place] [address] Dr. Edna Stark Urea nitrogen/Creatinine [Mass ratio] 27.8 mg/mg Normal [facility] Comment on above: Performed By: #### C MP, LIPID #### [facility] [address] [place], [place] [address] Dr. Edna Stark Orthopedic Office/Clinic Not olman 12-02-2020 Orthopedic Office/Clinic Note Chief Complaint Patient here to review results fo left knee MRI. MRI [facility]. History of Present Illness 50 year-old established female patient presents for FU of left knee MRI. Patient states that her symptoms are variable depending on the day with aching, stiffness, and swelling aggravating by prolonged standing and twisting. MRI to r/o meniscus tear. MRI from [facility] demonstrated no evidence of meniscal or ligamentous [...] Carlos Lopes PA-C 12/02/20 14:55 EST Normal [facility] MRI KNEE LEFT WO CONTRASTon 11-18-2020 MRI [...] Soham Fernando MD 11/18/20 Final result Normal [facility] No acute internal derangement. Near full-thickness cartilage loss along the weight-bearing surface of the medial femoral condyle. Mild patellar cartilage loss. [facility], [place] EXAMINATION: MRI OF THE LEFT KNEE WITHOUT [...] suspicious bone marrow replacing lesion. Small osteophytes. [place], [place] [facility], [facility] Incoming Radiant Results From [employer] - 11/18/2020 6:37 PM EST EXAMINATION: MRI [...] medial femoral condyle. Mild patellar cartilage loss. [place], [place] Orthopedic Office/Clinic Not olman 10-28-2020 Orthopedic [...] Carlos Lopes PA-C 10/28/20 16:22 EST Normal [facility] XR Knee 3 Views Lefton 10-04 XR Knee 3 Views Left _X-ray report EXAM: 3 views standing left knee IMPRESSION: No tilt or subluxation on patellofemoral view. No evidence of any significant fracture or dislocation. No advanced degenerative changes are identified. jjd Final Signed by: Damián Yan MD Signed (Electronic Signature): 10/04/2020 12:07 pm Transcribed DT/TM: 10/04/2020 12:07 (If Report Is Signed, Electronically Signed in Other Vendor System) Normal [facility] Orthopedic Office/Clinic Not olman 10-01-2020 Orthopedic Office/Clinic [...] of possible patellar subluxation a week before . She c/o swelling and decreased motion as [...] Carlos Lopes PA-C 10/01/20 10:38 EST Normal [facility] Vital Signs Date Time Vital Sign Value Performing Clinician Facility 07-16-2025 14:31-0400 Body height 167.64 cm Nikki Petr DO Work Phone: [facility] 07-16-2025 14:31-0400 Body mass index (BMI) [Ratio] 26.8 kg/m2 Nikki Petr DO Work Phone: [facility] 07-16-2025 14:31-0400 Body weight 75.29 kg Nikki Petr DO Work Phone: [facility] 07-16-2025 14:31-0400 Diastolic blood pressure 72 mm[Hg] Nikki Petr DO Work Phone: [facility] 07-16-2025 14:31-0400 Heart rate 89 /min Nikki Petr DO Work Phone: [facility] 07-16-2025 14:31-0400 Respiratory rate 16 /min Nikki Petr DO Work Phone: [facility] 07-16-2025 14:31-0400 SaO2% (BldA) [Mass fraction] 98 % Nikki Petr DO Work Phone: [facility] 07-16-2025 14:31-0400 Systolic blood pressure 124 mm[Hg] Nikki Humphreys DO Work Phone: [facility] 01-14-2025 15:49-0400 Body height 165.1 cm Bj Alanis MD Work Phone: [facility] 01-14-2025 15:49-0400 Body mass index (BMI) [Ratio] 26.79 kg/m2 Bj Alanis MD Work Phone: [facility] 01-14-2025 15:49-0400 Body temperature 97.5 [degF] Bj Alanis MD Work Phone: [facility] 01-14-2025 15:49-0400 Body weight 73.03 kg Bj Alanis MD Work Phone: [facility] 01-14-2025 15:49-0400 Diastolic blood pressure 76 mm[Hg] Bj Alanis MD Work Phone: [facility] 01-14-2025 15:49-0400 Heart rate 94 /min Bj Alanis MD Work Phone: [facility] 01-14-2025 15:49-0400 Respiratory rate 20 /min Bj Alanis MD Work Phone: [facility] 01-14-2025 15:49-0400 SaO2% (BldA) [Mass fraction] 96 % Bj Alanis MD Work Phone: [facility] 01-14-2025 15:49-0400 Systolic blood pressure 128 mm[Hg] Bj Alanis MD Work Phone: [facility] 12-12-2024 11:13-0500 Body height 165.1 cm Bj Alanis MD Work Phone: [facility] 12-12-2024 11:13-0500 Body mass index (BMI) [Ratio] 27.29 kg/m2 Bj Alanis MD Work Phone: [facility] 12-12-2024 11:13-0500 Body temperature 96.21 [degF] Bj Alanis MD Work Phone: [facility] 12-12-2024 11:13-0500 Body weight 74.39 kg Bj Alanis MD Work Phone: [facility] 12-12-2024 11:13-0500 Diastolic blood pressure 78 mm[Hg] Bj Alanis MD Work Phone: [facility] 12-12-2024 11:13-0500 Heart rate 90 /min Bj Alanis MD Work Phone: [facility] 12-12-2024 11:13-0500 Respiratory rate 22 /min Bj Alanis MD Work Phone: [facility] 12-12-2024 11:13-0500 SaO2% (BldA) [Mass fraction] 98 % Bj Alanis MD Work Phone: [facility] 12-12-2024 11:13-0500 Systolic blood pressure 126 mm[Hg] Bj Alanis MD Work Phone: [facility] 11-05-2024 16:04-0500 Body height 165.1 cm Norma Virk [employer] Work Phone: [facility] 11-05-2024 16:04-0500 Body mass index (BMI) [Ratio] 27.79 kg/m2 Norma Virk [employer] Work Phone: [facility] 11-05-2024 16:04-0500 Body temperature 96.69 [degF] Norma Virk [employer] Work Phone: [facility] 11-05-2024 16:04-0500 Body weight 75.75 kg Norma Virk [employer] Work Phone: [facility] 11-05-2024 16:04-0500 Diastolic blood pressure 78 mm[Hg] Norma Virk [employer] Work Phone: [facility] 11-05-2024 16:04-0500 Heart rate 95 /min Norma Virk [employer] Work Phone: [facility] 11-05-2024 16:04-0500 Respiratory rate 16 /min Norma Virk [employer] Work Phone: [facility] 11-05-2024 16:04-0500 SaO2% (BldA) [Mass fraction] 99 % Norma Virk [employer] Work Phone: [facility] 11-05-2024 16:04-0500 Systolic blood pressure 130 mm[Hg] Norma Virk [employer] Work Phone: [facility] 09-10-2024 16:37-0500 Body height 165.1 cm Norma Virk [employer] Work Phone: [facility] 09-10-2024 16:37-0500 Body mass index (BMI) [Ratio] 28.29 kg/m2 Norma Virk [employer] Work Phone: [facility] 09-10-2024 16:37-0500 Body temperature 98.71 [degF] Norma Virk [employer] Work Phone: [facility] 09-10-2024 16:37-0500 Body weight 77.11 kg Norma Virk [employer] Work Phone: [facility] 09-10-2024 16:37-0500 Diastolic blood pressure 74 mm[Hg] Norma Virk [employer] Work Phone: [facility] 09-10-2024 16:37-0500 Heart rate 88 /min Norma Virk [employer] Work Phone: [facility] 09-10-2024 16:37-0500 Respiratory rate 16 /min Norma Virk [employer] Work Phone: [facility] 09-10-2024 16:37-0500 SaO2% (BldA) [Mass fraction] 94 % Norma Virk [employer] Work Phone: [facility] 09-10-2024 16:37-0500 Systolic blood pressure 126 mm[Hg] Norma Virk [employer] W[employer]DER Work Phone: [facility] 07-30-2024 16:06-0400 Body mass index (BMI) [Ratio] 28.96 kg/m2 Norma Virk [employer] Work Phone: [facility] 07-30-2024 16:06-0400 Body temperature 97.9 [degF] Norma Virk [employer] Work Phone: [facility] 07-30-2024 16:06-0400 Body weight 78.93 kg Norma Virk [employer] Work Phone: [facility] 07-30-2024 16:06-0400 Diastolic blood pressure 78 mm[Hg] Norma Virk [employer] Work Phone: [facility] 07-30-2024 16:06-0400 Heart rate 81 /min Norma Virk [employer] Work Phone: [facility] 07-30-2024 16:06-0400 SaO2% (BldA) [Mass fraction] 97 % Norma Virk [employer] WELDER Work Phone: [facility] 07-30-2024 16:06-0400 Systolic blood pressure 118 mm[Hg] Norma Virk [employer] Work Phone: [facility] 06-18-2024 16:37-0400 Body height 165.1 cm Norma Virk [employer] Work Phone: [facility] 06-18-2024 16:37-0400 Body mass index (BMI) [Ratio] 30.62 kg/m2 Norma Virk [employer] Work Phone: [facility] 06-18-2024 16:37-0400 Body temperature 98.6 [degF] Norma Virk [employer] W[employer]DER Work Phone: [facility] 06-18-2024 16:37-0400 Body weight 83.46 kg Norma Pricepatrick [employer] Work Phone: [facility] 06-18-2024 16:37-0400 Diastolic blood pressure 76 mm[Hg] Norma Winchesterzpatrick [employer] Work Phone: [facility] 06-18-2024 16:37-0400 Heart rate 100 /min Norma Winchesterzpatrick [employer] Work Phone: [facility] Comment on above: 100% O2 06-18-2024 16:37-0400 Systolic blood pressure 110 mm[Hg] Norma Virk [employer] W[employer]DER Work Phone: [facility] Encounters Encounter Date Encounter Type Care Provider Facility Start: 07-16-2025 End: 07-16-2025 ambulatory Nikki Petr DO Work Phone: [facility] Work Phone: Start: 07-16-2025 End: 07-16-2025 Patient encounter procedure Nikki Petr DO -[facility] Work Phone: Start: 07-16-2025 End: 07-16-2025 Patient encounter status Nikki Petr DO [facility] Start: 01-14-2025 End: 01-14-2025 Office outpatient visit 15 minutes Bj Alanis MD Work Phone: [facility] Comment on above: Primary hypertension (CMS/HCC) (Primary Dx); Overweight (BMI 25.0-29.9) Start: 01-14-2025 End: 01-14-2025 ambulatory BJ ALANIS Not Available Start: 01-14-2025 End: 01-14-2025 Bamboo flowsheet Bj Alanis MD Work Phone: [facility] Start: 01-14-2025 End: 01-14-2025 Bamboo flowsheet Bj Alanis MD Work Phone: [facility] Start: 12-12-2024 End: 12-12-2024 Bamboo flowsheet Bj Alansi MD Work Phone: [facility] Start: 12-12-2024 End: 12-12-2024 Bamboo flowsheet Bj Alanis MD Work Phone: [facility] Start: 12-12-2024 End: 12-12-2024 Office outpatient visit 15 minutes Bj Alanis MD Work Phone: [facility] Comment on above: Primary hypertension (CMS/HCC) (Primary Dx); Class 1 obesity due to excess calories without serious comorbidity with body mass index (BMI) of 30.0 to 30.9 in adult Start: 12-12-2024 End: 12-12-2024 ambulatory BJ ALANIS Not Available Start: 11-05-2024 End: 11-05-2024 ambulatory NORMA VIRK Not Available Start: 11-05-2024 End: 11-05-2024 Office outpatient visit 10 minutes Norma Virk [employer] Work Phone: [facility] Comment on above: Class 1 obesity due to excess calories without serious comorbidity with body mass index (BMI) of 30.0 to 30.9 in adult (Primary Dx); Primary hypertension (CMS/HCC); Class 1 obesity due to excess calories without serious comorbidity with body mass index (BMI) of 32.0 to 32.9 in adult Start: 11-05-2024 End: 11-05-2024 Bamboo flowsheet Norma Virk [employer] Work Phone: [facility] Start: 11-05-2024 End: 11-05-2024 Bamboo flowsheet Norma Virk [employer] Work Phone: [facility] Start: 11-04-2024 End: 11-04-2024 Refill Norma Virk [employer] Work Phone: [facility] Comment on above: Primary hypertension (CMS/HCC) Start: 10-30-2024 End: 10-30-2024 Refill Norma Virk [employer] Work Phone: [facility] Comment on above: Primary hypertension (CMS/HCC) Start: 10-16-2024 End: 10-18-2024 Refill Shaikh Jan CAIN Work Phone: [facility] Comment on above: Primary hypertension (CMS/HCC) Start: 10-06-2024 End: 10-06-2024 Refill Maryuri Simons MA [facility] Comment on above: Class 1 obesity due to excess calories without serious comorbidity with body mass index (BMI) of 32.0 to 32.9 in adult Start: 2024 End: 2024 Refill Norma Virk [employer] Work Phone: [facility] Comment on above: Other hyperlipidemia (CMS/HCC) Start: 09-17-2024 End: 09-17-2024 Refill Maryuri Simons MA [facility] Comment on above: Other hyperlipidemia (CMS/HCC) (Primary Dx) Start: 09-10-2024 End: 09-10-2024 Office outpatient visit 15 minutes Norma Virk [employer] Work Phone: [facility] Comment on above: Class 1 obesity due to excess calories without serious comorbidity with body mass index (BMI) of 30.0 to 30.9 in adult (Primary Dx); Primary hypertension (CMS/HCC); Class 1 obesity due to excess calories without serious comorbidity with body mass index (BMI) of 32.0 to 32.9 in adult Start: 09-10-2024 End: 09-10-2024 ambulatory NORMA VIRK Not Available Start: 09-10-2024 End: 09-10-2024 Bamboo flowsheet Norma Virk [employer] Work Phone: [facility] Start: 09-10-2024 End: 09-10-2024 Bamboo flowsheet Norma Virk [employer] Work Phone: [facility] Start: 08-15-2024 End: 08-15-2024 ambulatory Nkechi Saule Facility:[facility] Start: 08-15-2024 End: 08-15-2024 Patient encounter procedure Nkechi Read [facility] Start: 07-30-2024 End: 07-30-2024 Office outpatient visit 10 minutes Norma Virk [employer] Work Phone: [facility] Comment on above: Class 1 [...] 07-30-2024 End: 07-30-2024 Bamboo flowsheet Norma Virk [employer] Work Phone: [facility] Start: 07-30-2024 End: 07-30-2024 Bamboo flowsheet Norma Virk [employer] Work Phone: [facility] Start: 07-15-2024 End: 07-16-2024 Refill Cinthia Neves MA [facility] Comment on above: Class 1 obesity due to excess calories without serious comorbidity with body mass index (BMI) of 32.0 to 32.9 in adult Start: 06-18-2024 End: 06-18-2024 Office outpatient visit 15 minutes Norma Virk [employer] Work Phone: [facility] Comment on above: Primary hypertension (CMS/HCC) (Primary Dx); Other hyperlipidemia (CMS/HCC); Class 1 obesity due to excess calories without serious comorbidity with body mass index (BMI) of 30.0 to 30.9 in adult; Class 1 obesity due to excess calories without serious comorbidity with body mass index (BMI) of 32.0 to 32.9 in adult Start: 06-18-2024 End: 06-18-2024 ambulatory NORMA VIRK Not Available Start: 06-18-2024 End: 06-18-2024 Bamboo flowsheet Norma Virk [employer] Work Phone: [facility] Start: 06-18-2024 End: 06-18-2024 Bamboo flowsheet Norma Virk [employer] Work Phone: [facility] Start: 05-19-2024 End: 05-19-2024 ambulatory CARDENAS FAWWAD Not Available Start: 04-17-2024 End: 04-17-2024 ambulatory CARDENAS FAWWAD Not Available Start: 03-10-2024 End: 03-10-2024 ambulatory CARDENAS FAWWAD Not Available Start: 08-04-2023 End: 08-04-2023 Patient encounter procedure Nkechi Read [facility] Start: 11-02-2022 End: 11-02-2022 ambulatory Shaikh Addisonwad Facility:[facility] Start: 11-02-2022 End: 11-02-2022 ambulatory MD Shaikh Montoya Work Phone: [facility] Work Phone: Start: 11-02-2022 End: 11-02-2022 Patient encounter procedure MD Shaikh Montoya Work Phone: [facility] [place] Work Phone: Start: 05-12-2022 End: 05-12-2022 Patient encounter procedure Nkechi Read [facility] Start: 12-12-2021 End: 12-13-2021 ambulatory FAJoeWAD Facility:[facility] Start: 09-21-2021 End: 09-22-[address] ANGI PARK Facility:[facility] Start: 11-18-2020 End: 11-21-2020 Patient encounter procedure CARLOS LOPES [facility] Start: 11-18-2020 End: 11-20-2020 Subsequent hospital visit by physician [facility] Comment on above: Osteoarthritis of le ft patellofemoral joint Procedures Date Procedure Procedure Detail Performing Clinician Start: 08-18-2024 Mammography Norma Patino martell [employer] Work Phone: Start: 10-25-2023 Mammography Norma Patino martell [employer] Work Phone: Start: 11-18-2020 Mri any jt lower ext rem w/o contrast matrl Carlos Lopes Work Phone: Start: 10-22-2020 Colonoscopy Norma F martell [employer] Work Phone: Arthrotomy of shoulder Teres a Roro Bilateral tubal ligation Ter chay Roro Plan of Treatment Date Care Activity Detail Author Start: 10-22-2030 Screening for malign ant neoplasm of colon [facility] Start: 04-23-2028 Screening for malign ant neoplasm of cervix [facility] Start: 08-18-2025 Screening for malign ant neoplasm of breast Mammogram [facility] Start: 07-17-2025 End: 07-17-2025 Patient encounter procedure 07/17/2025 9:30 AM EDT Office Visit [facility] [address] [place] [phone] Bj Alanis MD [address] [place] [id number] [facility] Start: 07-16-2025 Patient referral [facility] Work Phone: Start: 01-14-2025 End: 01-14-2025 Patient encounter procedure [facility] Comment on above: Arrived Start: 12-12-2024 End: 12-12-2024 Patient encounter procedure 12/12/2024 11:15 AM EST Office Visit [facility] [address] [place] [address] Bj Alanis MD [address] [place] [address] Arrived [facility] Comment on above: Arrived Start: 12-10-2024 End: 12-10-2024 Patient encounter procedure 12/10/2024 4:00 PM EST Office Visit [facility] [address] [place] [address] Norma Virk, [employer] [address] [place] [address] [facility] Start: 11-05-2024 End: 11-05-2024 Patient encounter procedure 11/05/2024 4:00 PM EST Office Visit [facility] [address] [place] [address] Norma Virk, [employer] [address] [place] [address] [facility] Start: 11-04-2024 End: 11-04-2024 Patient encounter procedure 11/04/2024 4:00 PM EST Office Visit [facility] [address] [place] [address] Norma Virk, [employer]DER [address] [place] [address] [facility] Start: 10-25-2024 Screening for malign ant neoplasm of breast Mammogram [facility] Start: 09-10-2024 End: 09-10-2024 Patient encounter procedure [facility] Comment on above: Arrived Start: 07-30-2024 End: 07-30-2024 Patient encounter procedure [facility] Comment on above: Class 1 obesity due to excess calories without serious comorbidity with body mass index (BMI) of 30.0 to 30.9 in adult (Primary Dx); Other hyperlipidemia (CMS/HCC); Primary hypertension (CMS/HCC) Start: 07-16-2024 End: 07-16-2024 Patient encounter procedure 07/16/2024 4:30 PM EDT Office Visit [facility] [address] [place] [phone] Norma Virk, [employer] WELDER [address] [place] [phone] [facility] Start: 06-22-2024 Influenza vaccination Influenza Vacc ine (#1) [facility] Start: 06-18-2024 End: 06-18-2024 Patient encounter procedure 06/18/2024 4:30 PM EDT Office Visit [facility] [address] [place] [phone] Norma Virk, [employer] WELDER [address] [place] [address] Primary hypertension (CMS/HCC) (Primary Dx); Other hyperlipidemia (CMS/HCC); Class 1 obesity due to excess calories without serious comorbidity with body mass index (BMI) of 30.0 to 30.9 in adult [facility] Comment on above: Primary hypertension (CMS/HCC) (Primary Dx); Other hyperlipidemia (CMS/HCC); Class 1 obesity due to excess calories without serious comorbidity with body mass index (BMI) of 30.0 to 30.9 in adult Start: 06-22-2020 Influenza vaccination Flu vaccine (# 1) [place], [place] Start: 2018 Screening for malign ant neoplasm of breast Breast cancer screen [place], [place] Start: 2018 Screening for malign ant neoplasm of colon Colon cancer screen colonoscopy [place], [place] Start: 2018 Shingles Vaccine (1 of 2) Shingles Vaccine (1 of 2) [place] Start: 2008 Lipid panel Lipid screen [place], [place] Start: 1989 Screening for malign ant neoplasm of cervix [facility] Start: 1987 DTaP/Tdap/Td vaccine (1 - Tdap) DTaP/Tdap/Td vaccine (1 - Tdap) [place], [place] Start: 1983 [facility] [place] [place] Start: 1968 Hepatitis C screening Hepatitis C sc reen [place], [place] Start: 1968 Screening for malign ant neoplasm of colon [facility] Comprehensive metabo lic 2000 panel - Serum or Plasma Comprehensive metabolic panel Lab Routine Primary hypertension (CMS/HCC) Ordered: 09/10/2024 [facility] Work Phone: Comment on above: Ordered: 09/10/2024 Comprehensive metabo lic 1999 panel - Serum or Plasma [facility] Patient referral [facility] Work Phone: [facility] Immunizations Immunization Date Immunization Notes Care Provider Fa cili 09-10-2024 influenza, seasonal, injectable, preservative free Maryuri Simons MA [facility] 09-29-2022 influenza, injectabl e, quadrivalent, preservative free Norma Virk [employer] Work Phone: [facility] 09-29-2022 influenza virus vaccine, unspecified formulation Norma Virk [employer] Work Phone: [facility] 10-24-2021 influenza virus vaccine, unspecified formulation Nikki Petr DO Work Phone: [facility] 09-05-2019 diphtheria, tetanus toxoids and acellular pertussis vaccine, unspecified formulation Nikki Petr DO Work Phone: [facility] Payers Date Payer Category Payer Self-pay 2022 Unknown [id number] 2019 [facility] [id number] 2019 Unknown BCBS BCBS [id number] 2019-Present [phone] [address] [place] [address] [id number] 1968 Unknown [id number] [id number] 9.2.173 1968 Unknown [id number] [id number] 9.2.593 1968 Unknown [id number] [id number] 9.2.593 1968 Unknown [id number] [id number] 9.2.593 1968 Unknown [id number] [id number] 9.2.727 1968 Unknown [id number] [id number] 9.2.1259 1968 Unknown [id number] [id number] 9.2.1259 1968 Unknown [id number] [id number] 9.2.1259 1968 Unknown [id number] [id number] 9.2.1259 1968 Unknown [id number] [id number] 9.2.1259 1968 Unknown [id number] [id number] 9.2.1259 1968 Unknown [id number] [id number] 9.2.1259 1968 Unknown [id number] [id number] 9.2.1259 1968 Unknown [id number] [id number] 9.2.1259 1959 Unknown [id number] Unknown [id number] 9.2.531 Social History Date Type Detail Facility Tobacco smoking stat [facility] Unknown if ever smoked [place], [place] Start: 1970 Sex Assigned At Not on file [place], [place] Exposure to SARS-CoV -2 (event) Not sure [place] Tobacco Current, Cigaret andrew, 3 per day. 15 year(s). Previous treatment: Medications. Ready to change: No. Household tobacco concerns: No. [facility] Start: 06-11-2024 End: 06-18-2024 Sex Assigned At Female [facility] Start: 1970 Sex Assigned At Female [facility] Tobacco smoking status No Smokin g Status Entered [facility] Start: 03-10-2024 Tobacco smoking status NHIS Ex-smoker [facility] History of tobacco use Current smoker [facility] History of tobacco use Cigarette Smoker [facility] History of tobacco use Passive smoker [facility] Start: 03-10-2024 Tobacco use and exposure Smokeless tobacco non-user [facility] Start: 06-18-2024 End: 01-14-2025 Alcoholic beverage intake Current drinker of alcohol (finding) [facility] Start: 06-11-2024 End: 06-18-2024 History of Social function [facility] How often do you nee d to have someone help you when you read instructions, pamphlets, or other written material from your doctor or pharmacy [SILS] Never [facility] Do you belong to any clubs or organizations such as holiness groups, unions, fraternal or athletic groups, or [...] Start: 03-10-2024 Alcohol Comment OCCASSIONAL [facility] Tobacco smoking stat [facility] Unknown if ever smoked [facility] Work Phone: Sex Female (finding) [facility] Clinical Notes 06-18-2024 to 07-16-2025 Bj Alanis MD - 01/14/2025 4:52 PM Susan Alanis MD - 01/14/2025 4:51 PM Susan Alanis MD - 01/14/2025 3:45 PM Susan Alanis MD - 12/12/2024 11:45 AM ESTPatient Instructions Note Date & Type Note Facility 07-16-2025 Hospital Discharge instructions Ambulatory OrdersReferral to Orthopedic Surgery Time Frame: 07/16/25, Location: None Selected [facility] Work Phone: 01-14-2025 History of Present illness Narrative Associated Problem(s): Overweight (BMI 25.0-29.9) Weight down 48 pounds with adipex and now BMI under 27. Stop adipex. Continue exercise and diet changes. Associated Problem(s): Primary hypertension (CMS/HCC) BP controlled and monitor PRN. Images from the original note were not included. Subjective Patient ID: Kacie Raman is a 54 y.o. female who presents for Follow-up (1 m). Follow up HTN and weight. Patient feels well today. Resumed hyzaar last visit and BP improved. Checking BP PRN and typically controlled. BP normal today. Taking medication daily and tolerating without side effects. Notice edema improved with medication. Taking adipex and weight continues to decrease. Down 3 pounds since last visit and 48 pounds since starting. Tolerating medication without side effects except mild dry mouth. Not as hungry with medication. Smaller portions and not snacking. Increased fruits and vegetables. Tries to limit total daily calories. Increased activity and walking almost daily. Review of Systems Respiratory: Negative for cough, shortness of breath and wheezing. Cardiovascular: Negative for chest pain and palpitations. Gastrointestinal: Negative for abdominal pain, diarrhea, nausea and vomiting. Genitourinary: Negative for dysuria. Objective Physical Exam Constitutional: General: She is not in acute distress. Appearance: Normal appearance. HENT: Head: Normocephalic. Right Ear: Tympanic membrane normal. Left Ear: Tympanic membrane normal. Eyes: Extraocular Movements: Extraocular movements intact. Pupils: Pupils are equal, round, and reactive to light. Cardiovascular: Rate and Rhythm: Normal rate and regular rhythm. Heart sounds: No murmur heard. No friction rub. No gallop. Pulmonary: Effort: Pulmonary effort is normal. Breath sounds: Normal breath sounds. No wheezing, rhonchi or rales. Abdominal: General: Bowel sounds are normal. There is no distension. Palpations: Abdomen is soft. Tenderness: There is no abdominal tenderness. There is no guarding or rebound. Musculoskeletal: Cervical back: Neck supple. Right lower leg: No edema. Left lower leg: No edema. Neurological: Mental Status: She is alert. Assessment/Plan Problem List Items Addressed This Visit Primary hypertension (CMS/HCC) - Primary BP controlled and monitor PRN. Overweight (BMI 25.0-29.9) Weight down 48 pounds with adipex and now BMI under 27. Stop adipex. Continue exercise and diet changes. Relevant Medications phentermine (Adipex-P) 37.5 MG tablet documented in this encounter [facility] 12-12-2024 History of Present illness Narrative Associated Problem(s): Primary hypertension (CMS/HCC) BP variable and notice edema. Resume hyzaar at lower dose but may need to increase if BP remains elevated. Monitor PRN. Associated Problem(s): Class 1 obesity due to excess calories without serious comorbidity with body mass index (BMI) of 30.0 to 30.9 in adult Patient doing well with adipex and lost 45 since starting. Tolerating well with only mild dry mouth. Continue with dietary changes and less calories. Need to limit snacking and smaller portions. Continue healthier choices. Need regular aerobic exercise 30 minutes at a time 5-6 days a week. Refill for another month. OARRS reviewed. Continue meds as prescribed. If develop new or worsening symptoms contact office. Images from the original note were not included. Subjective Patient ID: Kacie Raman is a 54 y.o. female who presents for Follow-up (1m). Follow up HTN and weight. Checking BP PRN and variable. Some days elevated and other days controlled. BP normal today at 126/78. Taking medication daily and tolerating without side effects. Hydrochlorothiazide stopped few months ago and notice increased swelling and edema without medication. Legs and fingers feels swollen. Taking adipex and down 3 pounds in past month but 45 pounds since starting. Tolerating medication without side effects except mild dry mouth. Not as hungry with medication. Smaller portions and not snacking. Increased fruits and vegetables. Tries to limit total daily calories. Increased activity and walking daily. Review of Systems Respiratory: Negative for cough, shortness of breath and wheezing. Cardiovascular: Negative for chest pain and palpitations. Gastrointestinal: Negative for abdominal pain, diarrhea, nausea and vomiting. Genitourinary: Negative for dysuria. Objective Physical Exam Constitutional: General: She is not in acute distress. Appearance: Normal appearance. HENT: Head: Normocephalic. Right Ear: Tympanic membrane normal. Left Ear: Tympanic membrane normal. Eyes: Extraocular Movements: Extraocular movements intact. Pupils: Pupils are equal, round, and reactive to light. Cardiovascular: Rate and Rhythm: Normal rate and regular rhythm. Heart sounds: No murmur heard. No friction rub. No gallop. Pulmonary: Effort: Pulmonary effort is normal. Breath sounds: Normal breath sounds. No wheezing, rhonchi or rales. Abdominal: General: Bowel sounds are normal. There is no distension. Palpations: Abdomen is soft. Tenderness: There is no abdominal tenderness. There is no guarding or rebound. Musculoskeletal: Cervical back: Neck supple. Right lower leg: No edema. Left lower leg: No edema. Neurological: Mental Status: She is alert. Assessment/Plan Problem List Items Addressed This Visit Primary hypertension (CMS/HCC) - Primary BP variable and notice edema. Resume hyzaar at lower dose but may need to increase if BP remains elevated. Monitor PRN. Relevant Medications losartan-hydroCHLOROthiazide (Hyzaar) 50-12.5 MG tablet Class 1 obesity due to excess calories without serious comorbidity with body mass index (BMI) of 30.0 to 30.9 in adult Patient doing well with adipex and lost 45 since starting. Tolerating well with only mild dry mouth. Continue with dietary changes and less calories. Need to limit snacking and smaller portions. Continue healthier choices. Need regular aerobic exercise 30 minutes at a time 5-6 days a week. Refill for another month. [facility] reviewed. Continue meds as prescribed. If develop new or worsening symptoms contact office. Relevant Medications phentermine (Adipex-P) 37.5 MG tablet documented in this encounter [facility] 11-05-2024 History of Present illness Narrative Associated Problem(s): Primary hypertension (CMS/HCC) Currently taking Losartan Checks BP at home; Averages are 120's. Improved since stopping hydrochlorothiazide component. Denies dizziness, cough, swelling in extremities, shortness of breath. Given BP log, advised pt to record BP and bring log back with them to next visit. Associated Problem(s): Class 1 obesity due to excess calories without serious comorbidity with body mass index (BMI) of 30.0 to 30.9 in adult Is here today for Weight follow-up; Has been on Phentermine for 6 months now; Starting weight: 209 Current weight: 167 Total weight loss: 42 Goal Weight: 150 Has began walking 2 [...] intake to 1600 calories daily if no contraindications. Will do aAdipex again for one month- re-evaluate need for continuing next month. Images from the original note were not included. Subjective Patient ID: Kacie Raman is a 54 y.o. female who presents for Follow-up. HPI Is here today for Weight follow-up; Has been on Phentermine for 6 months now; Starting weight: 209 Current weight: 167 Total weight loss: 42 Goal Weight: 150 Has began walking 2 miles per day Dietary habit changes, has decreased sweets and carbohydrates. Is eating more protein. Weighs food out. Has made several lifestyle changes. Will do Adipex again for one month- re-evaluate need for continuing next month. Pt meets qualifications of [facility] 4731-08-25 for weight loss. BMI>30 or >27 with comorbid conditions. Blood pressure WNL. Notify office with any symptoms of chest pain, dyspnea, heart palpitations, or any anxiety symptoms. F/U in 4 weeks to document weight loss. Increase physical activity as tolerated, and lower caloric intake to 1600 calories daily if no contraindications HTN: Currently taking Losartan Checks BP at home; Averages are 120's. Improved since stopping hydrochlorothiazide component. Denies dizziness, cough, swelling in extremities, shortness of breath. Review of Systems Constitutional: Negative for activity change, appetite change, chills, fatigue, fever, night sweats and unexpected weight change. HENT: Negative for congestion, ear pain, rhinorrhea, sinus pressure, sinus pain, sore throat, trouble swallowing and voice change. Eyes: Negative for discharge and visual disturbance. Respiratory: Negative for chest tightness, shortness of breath and wheezing. Cardiovascular: Negative for chest pain, palpitations and leg swelling. Gastrointestinal: Negative for abdominal distention, abdominal pain, blood in stool, constipation, diarrhea, nausea and vomiting. Genitourinary: Negative for difficulty urinating, dysuria, flank pain, hematuria and pelvic pain. Musculoskeletal: Negative for arthralgias, joint swelling and neck pain. Skin: Negative for rash and wound. Neurological: Negative for dizziness, tremors, syncope, weakness, light-headedness, numbness and headaches. Psychiatric/Behavioral: Negative for sleep disturbance and suicidal ideas. The patient is not nervous/anxious. Hematological: Does not bruise/bleed easily. Endocrine: Negative for cold intolerance, heat intolerance, polydipsia, polyphagia and polyuria. Objective Physical Exam Vitals reviewed. Constitutional: Appearance: Normal appearance. HENT: Right Ear: Tympanic membrane normal. Left Ear: [...] soft. Musculoskeletal: General: Normal range of motion. Skin: General: Skin is warm and dry. Capillary Refill: Capillary refill takes less than 2 seconds. Neurological: Mental Status: She is alert and oriented to person, place, and time. Assessment/Plan Problem List Items Addressed This Visit Primary hypertension (CMS/HCC) Currently taking Losartan Checks BP at home; Averages are 120's. Improved since stopping hydrochlorothiazide component. Denies dizziness, cough, swelling in extremities, shortness of breath. Given BP log, advised pt to record BP and bring log back with them to next visit. Class 1 obesity due to excess calories without serious comorbidity with body mass index (BMI) of 30.0 to 30.9 in adult - Primary Is here today for Weight follow-up; Has been on Phentermine for 6 months now; Starting weight: 209 Current weight: 167 Total weight loss: 42 Goal Weight: 150 Has began walking 2 miles per day Dietary habit changes, has decreased sweets and carbohydrates. Is eating more protein. Weighs food out. Has made several lifestyle changes. Pt meets qualifications of [facility] 4731-08-25 for weight loss. BMI>30 or >27 with comorbid conditions. Blood pressure WNL. Notify office with any symptoms of chest pain, dyspnea, heart palpitations, or any anxiety symptoms. F/U in 4 weeks to document weight loss. Increase physical activity as tolerated, and lower caloric intake to 1600 calories daily if no contraindications. Will do aAdipex again for one month- re-evaluate need for continuing next month. Relevant Medications phentermine (Adipex-P) 37.5 MG tablet (Start on 11/19/2024) Other Visit Diagnoses Class 1 obesity due to excess calories without serious comorbidity with body mass index (BMI) of 32.0 to 32.9 in adult Relevant Medications phentermine (Adipex-P) 37.5 MG tablet (Start on 11/19/2024) documented in this encounter [facility] 10-06-2024 Telephone encounter Note MALIK:09/10/2024 NOV: [facility] 10-06-2024 Miscellaneous Notes MALIK:09/10/2024 NOV: documented in this encounter [facility] 09-17-2024 Telephone encounter Note MALIK:09/10/2024 NOV:11/04/2024 [facility] 09-17-2024 Miscellaneous Notes MALIK:09/10/2024 NOV:11/04/2024 documented in this encounter [facility] 09-10-2024 History of Present illness Narrative Associated Problem(s): Primary hypertension (CMS/HCC) Currently taking Losartan-hydrochlorothiazide Checks BP at home; Averages are 110-117. X1 episode recently of dizziness and passing out. Hit her head. Was seen in ED for this. Potassium in hospital was 2.8. Was given 2 bags IV potassium in hospital. Will recheck CMP today. Will decrease losartan-hydrochlorothiazide Discontinue hydrochlorothiazide component. Given BP log, advised pt to record BP and bring log back with them to next visit. Associated Problem(s): Class 1 obesity due to excess calories without serious comorbidity with body mass index (BMI) of 30.0 to 30.9 in adult Has been on Phentermine for 5 months now; Starting weight: 209 Current weight: 170 Total weight loss: 39 Goal Weight: 150 Has began walking 2 [...] to 1600 calories daily if no contraindications Images from the original note were not included. Subjective Patient ID: Kacie Raman is a 53 y.o. female who presents for Follow-up and Weight Check. HPI Is here today for Weight follow-up; Has been on Phentermine for 5 months now; Starting weight: 209 Current weight: 170 Total weight loss: 39 Goal Weight: 150 Has began walking 2 [...] to 1600 calories daily if no contraindications HTN: Currently taking Losartan-hydrochlorothiazide Checks BP at home; Averages are 110-117. X1 episode recently of dizziness and passing out. Hit her head. Was seen in ED for this. Potassium in hospital was 2.8.Will decrease losartan-hydrochlorothiazide Discontinue hydrochlorothiazide component. Given BP log, advised pt to record BP and bring log back with them to next visit. Review of Systems Constitutional: Negative for activity [...] motion. Cervical back: Normal range of motion. Left knee: Tenderness present. Skin: General: Skin is warm and dry. Capillary Refill: Capillary refill takes less than 2 seconds. Neurological: General: No focal deficit present. Mental Status: She is alert and oriented to person, place, and time. Psychiatric: Mood and Affect: Mood normal. Behavior: Behavior normal. Assessment/Plan Problem List Items Addressed This Visit Primary hypertension (CMS/HCC) Currently taking Losartan-hydrochlorothiazide Checks BP at home; Averages are 110-117. X1 episode recently of dizziness and passing out. Hit her head. Was seen in ED for this. Potassium in hospital was 2.8. Was given 2 bags IV potassium in hospital. Will recheck CMP today. Will decrease losartan-hydrochlorothiazide Discontinue hydrochlorothiazide component. Given BP log, advised pt to record BP and bring log back with them to next visit. Relevant Medications losartan (Cozaar) 100 MG tablet Other Relevant Orders Comprehensive metabolic panel Class 1 obesity due to excess calories without serious comorbidity with body mass index (BMI) of 30.0 to 30.9 in adult - Primary Has been on Phentermine for 5 months now; Starting weight: 209 Current weight: 170 Total weight loss: 39 Goal Weight: 150 Has began walking 2 [...] to 1600 calories daily if no contraindications Other Visit Diagnoses Class 1 obesity due to excess calories without serious comorbidity with body mass index (BMI) of 32.0 to 32.9 in adult documented in this encounter [facility] 07-30-2024 History of Present illness Narrative Images from the original note were not included. Subjective Patient ID: Kacie Raman is a 53 y.o. female who presents [...] several lifestyle changes. Pt meets qualifications of [facility] 4731-08-25 for weight loss. BMI>30 or >27 [...] if no contraindications documented in this encounter [facility] 07-30-2024 Instructions Norma Virk NP - 07/30/2024 4:00 PM EDT Keep up the good work!! Notify office with any symptoms of chest pain, dyspnea, heart palpitations, or any anxiety symptoms. F/U in 4 weeks to document weight loss. Increase physical activity as tolerated, and lower caloric intake to 1600 calories daily if no contraindications\ documented in this encounter [facility] 06-18-2024 History of Present illness Narrative Images from the original note were not included. Subjective Patient ID: Kacie Raman is a 53 y.o. female who presents for Follow-up (1MO). HPI Is here today for Weight follow-up; Has been on Phentermine for 3 months now; Starting weight: 209 Current weight: 184 Has began walking 2 miles per day [...] to 1600 calories daily if no contraindications HLD: Simvastatin 20mg Denies myalgias Component Ref Range & Units 2 mo ago (03/29/24) 2 mo ago (03/29/24) 2 mo ago (03/29/24) TRIGLYCERIDES <=150 mg/dL 119 135 Low R 26.0 R CHOLESTEROL <=200 mg/dL 184 3.9 R 0.3 R HDL CHOLESTEROL 40 - 60 mg/dL 72 High 15.0 R 3.7 R Comment: > or =60 mg/dl - LOW CARDIOVASCULAR RISK <40 mg/dl - HIGH CARDIOVASCULAR RISK LDL CHOLESTEROL CALCULATED mg/dL 89.0 120 High R 1.5 R Comment: <100 mg/dl OPTIMAL 100-129 mg/dl NEAR OR ABOVE OPTIMAL 130-159 mg/dl BORDERLINE HIGH 160-189 mg/dl HIGH >190 mg/dl VERY HIGH VLDL CHOLESTEROL mg/dL 23.8 1.6 High R 0.4 R CHOL HDL RATIO 2.6 39 High R 0.02 R Comment: 3.3 - 4.4 LOW RISK 4.4 - 7.1 AVERAGE RISK 7.1 - 11.0 MODERATE RISK >11.0 HIGH RISK ALANINE AMINOTRANSFERASE 50 R ALKALINE PHOSPHATASE 68 R TOTAL PROTEIN 8.0 R ALBUMIN LEVEL 4.1 R ALBUMIN GLOBULIN RATIO 1.1 Review of Systems Constitutional: Negative for activity [...] Assessment/Plan Problem List Items Addressed This Visit Other hyperlipidemia (CMS/HCC) Simvastatin 20mg; Most recent Lipid panel WNL. Denies myalgias; Continue current regimen. Primary hypertension (CMS/HCC) - Primary Losartan hydrochlorothiazide 100-25mg Checks BP at home- Averages are Denies orthostatic changes, dizziness, cough, swelling in extremities. Continue current regimen. Class 1 obesity due to excess calories without serious comorbidity with body mass index (BMI) of 30.0 to 30.9 in adult Has been on Phentermine for 3 months now; Starting weight: 209 Current weight: 184 Has began walking 2 miles per day [...] Relevant Medications phentermine (Adipex-P) 37.5 MG tablet Other Visit Diagnoses Class 1 obesity due to excess calories without serious comorbidity with body mass index (BMI) of 32.0 to 32.9 in adult Relevant Medications phentermine (Adipex-P) 37.5 MG tablet Associated Problem(s): Other hyperlipidemia ([facility]/HCC) Simvastatin 20mg; Most recent Lipid panel WNL. Denies myalgias; Continue current regimen. Associated Problem(s): Class 1 obesity due to excess calories without serious comorbidity with body mass index (BMI) of 30.0 to 30.9 in adult Has been on Phentermine for 3 months now; Starting weight: 209 Current weight: 184 Has began walking 2 miles per day [...] to 1600 calories daily if no contraindications Associated Problem(s): Primary hypertension (CMS/HCC) Losartan hydrochlorothiazide 100-25mg Checks BP at home- Averages are Denies orthostatic changes, dizziness, cough, swelling in extremities. Continue current regimen. documented in this encounter [facility] 06-18-2024 Instructions Norma Virk NP - 06/18/2024 4:30 PM EDT Keep up the great work!!!!! Blood pressure WNL. Notify office with any symptoms of chest pain, dyspnea, heart palpitations, or any anxiety symptoms. F/U in 4 weeks to document weight loss. Increase physical activity as tolerated, and lower caloric intake to 1600 calories daily if no contraindications documented in this encounter [facility] Evaluation + Plan note No data available for this section [facility] Evaluation note No assessment inform ation available [facility] Work Phone: Evaluation note Diagnosis Class 1 obesity due to excess calories without serious comorbidity with body mass index (BMI) of 30.0 to 30.9 in adult- Primary Class 1 obesity due to excess calories without serious comorbidity with body mass index (BMI) of 32.0 to 32.9 in adult documented in this encounter [facility] HealthcareEvaluation note* Diagnosis Primary hypertension (CMS/HCC)- Primary Unspecified essential hypertension Other hyperlipidemia (CMS/HCC) Class 1 obesity due to excess calories without serious comorbidity with body mass index (BMI) of 32.0 to 32.9 in adult Sensation of fullness in right ear Primary hypertension (CMS/HCC)- Primary Unspecified essential hypertension Class 1 obesity due to excess calories without serious comorbidity with body mass index (BMI) of 30.0 to 30.9 in adult Class 1 obesity due to excess calories without serious comorbidity with body mass index (BMI) of 32.0 to 32.9 in adult Class 1 obesity due to excess calories without serious comorbidity with body mass index (BMI) of 30.0 to 30.9 in adult- Primary Primary hypertension (CMS/HCC)- Primary Unspecified essential hypertension Other hyperlipidemia (CMS/HCC) Class 1 obesity due to excess calories without serious comorbidity with body mass index (BMI) of 30.0 to 30.9 in adult Class 1 obesity due to excess calories without serious comorbidity with body mass index (BMI) of 32.0 to 32.9 in adult Class 1 obesity due to excess calories without serious comorbidity with body mass index (BMI) of 30.0 to 30.9 in adult- Primary Class 1 obesity due to excess calories without serious comorbidity with body mass index (BMI) of 32.0 to 32.9 in adult Class 1 obesity due to excess calories without serious comorbidity with body mass index (BMI) of 30.0 to 30.9 in adult- Primary Primary hypertension (CMS/HCC) Unspecified essential hypertension Class 1 obesity due to excess calories without serious comorbidity with body mass index (BMI) of 32.0 to 32.9 in adult documented in this encounter [facility]* Diagnosis Primary hypertension (CMS/HCC)- Primary Unspecified essential hypertension Other hyperlipidemia (CMS/HCC) Class 1 obesity due to excess calories without serious comorbidity with body mass index (BMI) of 32.0 to 32.9 in adult Sensation of fullness in right ear Primary hypertension (CMS/HCC)- Primary Unspecified essential hypertension Class 1 obesity due to excess calories without serious comorbidity with body mass index (BMI) of 30.0 to 30.9 in adult Class 1 obesity due to excess calories without serious comorbidity with body mass index (BMI) of 32.0 to 32.9 in adult Class 1 obesity due to excess calories without serious comorbidity with body mass index (BMI) of 30.0 to 30.9 in adult- Primary Primary hypertension (CMS/HCC)- Primary Unspecified essential hypertension Other hyperlipidemia (CMS/HCC) Class 1 obesity due to excess calories without serious comorbidity with body mass index (BMI) of 30.0 to 30.9 in adult Class 1 obesity due to excess calories without serious comorbidity with body mass index (BMI) of 32.0 to 32.9 in adult Class 1 obesity due to excess calories without serious comorbidity with body mass index (BMI) of 30.0 to 30.9 in adult- Primary Class 1 obesity due to excess calories without serious comorbidity with body mass index (BMI) of 32.0 to 32.9 in adult Class 1 obesity due to excess calories without serious comorbidity with body mass index (BMI) of 30.0 to 30.9 in adult- Primary Primary hypertension (CMS/HCC) Unspecified essential hypertension Class 1 obesity due to excess calories without serious comorbidity with body mass index (BMI) of 32.0 to 32.9 in adult Need for immunization against influenza Need for prophylactic vaccination and inoculation against influenza Other hyperlipidemia (CMS/HCC)- Primary documented in this encounter [facility]* Diagnosis Primary hypertension (CMS/HCC)- Primary Unspecified essential hypertension Other hyperlipidemia (CMS/HCC) Class 1 obesity due to excess calories without serious comorbidity with body mass index (BMI) of 32.0 to 32.9 in adult Sensation of fullness in right ear Primary hypertension (CMS/HCC)- Primary Unspecified essential hypertension Class 1 obesity due to excess calories without serious comorbidity with body mass index (BMI) of 30.0 to 30.9 in adult Class 1 obesity due to excess calories without serious comorbidity with body mass index (BMI) of 32.0 to 32.9 in adult Class 1 obesity due to excess calories without serious comorbidity with body mass index (BMI) of 30.0 to 30.9 in adult- Primary Primary hypertension (CMS/HCC)- Primary Unspecified essential hypertension Other hyperlipidemia (CMS/HCC) Class 1 obesity due to excess calories without serious comorbidity with body mass index (BMI) of 30.0 to 30.9 in adult Class 1 obesity due to excess calories without serious comorbidity with body mass index (BMI) of 32.0 to 32.9 in adult Class 1 obesity due to excess calories without serious comorbidity with body mass index (BMI) of 30.0 to 30.9 in adult- Primary Class 1 obesity due to excess calories without serious comorbidity with body mass index (BMI) of 32.0 to 32.9 in adult Class 1 obesity due to excess calories without serious comorbidity with body mass index (BMI) of 30.0 to 30.9 in adult- Primary Primary hypertension (CMS/HCC) Unspecified essential hypertension Class 1 obesity due to excess calories without serious comorbidity with body mass index (BMI) of 32.0 to 32.9 in adult Need for immunization against influenza Need for prophylactic vaccination and inoculation against influenza Other hyperlipidemia (CMS/HCC) documented in this encounter [facility]* Diagnosis Primary hypertension (CMS/HCC)- Primary Unspecified essential hypertension Other hyperlipidemia (CMS/HCC) Class 1 obesity due to excess calories without serious comorbidity with body mass index (BMI) of 32.0 to 32.9 in adult Sensation of fullness in right ear Primary hypertension (CMS/HCC)- Primary Unspecified essential hypertension Class 1 obesity due to excess calories without serious comorbidity with body mass index (BMI) of 30.0 to 30.9 in adult Class 1 obesity due to excess calories without serious comorbidity with body mass index (BMI) of 32.0 to 32.9 in adult Class 1 obesity due to excess calories without serious comorbidity with body mass index (BMI) of 30.0 to 30.9 in adult- Primary Primary hypertension (CMS/HCC)- Primary Unspecified essential hypertension Other hyperlipidemia (CMS/HCC) Class 1 obesity due to excess calories without serious comorbidity with body mass index (BMI) of 30.0 to 30.9 in adult Class 1 obesity due to excess calories without serious comorbidity with body mass index (BMI) of 32.0 to 32.9 in adult Class 1 obesity due to excess calories without serious comorbidity with body mass index (BMI) of 30.0 to 30.9 in adult- Primary Class 1 obesity due to excess calories without serious comorbidity with body mass index (BMI) of 32.0 to 32.9 in adult Class 1 obesity due to excess calories without serious comorbidity with body mass index (BMI) of 30.0 to 30.9 in adult- Primary Primary hypertension (CMS/HCC) Unspecified essential hypertension Class 1 obesity due to excess calories without serious comorbidity with body mass index (BMI) of 32.0 to 32.9 in adult Need for immunization against influenza Need for prophylactic vaccination and inoculation against influenza Class 1 obesity due to excess calories without serious comorbidity with body mass index (BMI) of 32.0 to 32.9 in adult documented in this encounter [facility]Evaluation [facility]* Diagnosis Primary hypertension (CMS/HCC)- Primary Unspecified essential hypertension Other hyperlipidemia (CMS/HCC) Class 1 obesity due to excess calories without serious comorbidity with body mass index (BMI) of 30.0 to 30.9 in adult Class 1 obesity due to excess calories without serious comorbidity with body mass index (BMI) of 32.0 to 32.9 in adult documented in this encounter [facility]Evaluation note* Diagnosis Class 1 obesity due to excess calories without serious comorbidity with body mass index (BMI) of 32.0 to 32.9 in adult documented in this encounter [facility] HealthcareEvaluation note* Diagnosis Primary hypertension (CMS/HCC)- Primary Unspecified essential hypertension Other hyperlipidemia (CMS/HCC) Class 1 obesity due to excess calories without serious comorbidity with body mass index (BMI) of 32.0 to 32.9 in adult Sensation of fullness in right ear Primary hypertension (CMS/HCC)- Primary Unspecified essential hypertension Class 1 obesity due to excess calories without serious comorbidity with body mass index (BMI) of 30.0 to 30.9 in adult Class 1 obesity due to excess calories without serious comorbidity with body mass index (BMI) of 32.0 to 32.9 in adult Class 1 obesity due to excess calories without serious comorbidity with body mass index (BMI) of 30.0 to 30.9 in adult- Primary Primary hypertension (CMS/HCC)- Primary Unspecified essential hypertension Other hyperlipidemia (CMS/HCC) Class 1 obesity due to excess calories without serious comorbidity with body mass index (BMI) of 30.0 to 30.9 in adult Class 1 obesity due to excess calories without serious comorbidity with body mass index (BMI) of 32.0 to 32.9 in adult Class 1 obesity due to excess calories without serious comorbidity with body mass index (BMI) of 30.0 to 30.9 in adult- Primary Class 1 obesity due to excess calories without serious comorbidity with body mass index (BMI) of 32.0 to 32.9 in adult Class 1 obesity due to excess calories without serious comorbidity with body mass index (BMI) of 30.0 to 30.9 in adult- Primary Primary hypertension (CMS/HCC) Unspecified essential hypertension Class 1 obesity due to excess calories without serious comorbidity with body mass index (BMI) of 32.0 to 32.9 in adult Need for immunization against influenza Need for prophylactic vaccination and inoculation against influenza Primary hypertension (CMS/HCC) Unspecified essential hypertension documented in this encounter [facility] HealthcareEvaluation note* Diagnosis Primary hypertension (CMS/HCC)- Primary Unspecified essential hypertension Other hyperlipidemia (CMS/HCC) Class 1 obesity due to excess calories without serious comorbidity with body mass index (BMI) of 32.0 to 32.9 in adult Sensation of fullness in right ear Primary hypertension (CMS/HCC)- Primary Unspecified essential hypertension Class 1 obesity due to excess calories without serious comorbidity with body mass index (BMI) of 30.0 to 30.9 in adult Class 1 obesity due to excess calories without serious comorbidity with body mass index (BMI) of 32.0 to 32.9 in adult Class 1 obesity due to excess calories without serious comorbidity with body mass index (BMI) of 30.0 to 30.9 in adult- Primary Primary hypertension (CMS/HCC)- Primary Unspecified essential hypertension Other hyperlipidemia (CMS/HCC) Class 1 obesity due to excess calories without serious comorbidity with body mass index (BMI) of 30.0 to 30.9 in adult Class 1 obesity due to excess calories without serious comorbidity with body mass index (BMI) of 32.0 to 32.9 in adult Class 1 obesity due to excess calories without serious comorbidity with body mass index (BMI) of 30.0 to 30.9 in adult- Primary Class 1 obesity due to excess calories without serious comorbidity with body mass index (BMI) of 32.0 to 32.9 in adult Class 1 obesity due to excess calories without serious comorbidity with body mass index (BMI) of 30.0 to 30.9 in adult- Primary Primary hypertension (CMS/HCC) Unspecified essential hypertension Class 1 obesity due to excess calories without serious comorbidity with body mass index (BMI) of 32.0 to 32.9 in adult Need for immunization against influenza Need for prophylactic vaccination and inoculation against influenza Class 1 obesity due to excess calories without serious comorbidity with body mass index (BMI) of 30.0 to 30.9 in adult- Primary Primary hypertension (CMS/HCC) Unspecified essential hypertension Class 1 obesity due to excess calories without serious comorbidity with body mass index (BMI) of 32.0 to 32.9 in adult documented in this encounter [facility] HealthcareEvaluation note* Diagnosis Primary hypertension (CMS/HCC)- Primary Unspecified essential hypertension Other hyperlipidemia (CMS/HCC) Class 1 obesity due to excess calories without serious comorbidity with body mass index (BMI) of 32.0 to 32.9 in adult Sensation of fullness in right ear Primary hypertension (CMS/HCC)- Primary Unspecified essential hypertension Class 1 obesity due to excess calories without serious comorbidity with body mass index (BMI) of 30.0 to 30.9 in adult Class 1 obesity due to excess calories without serious comorbidity with body mass index (BMI) of 32.0 to 32.9 in adult Class 1 obesity due to excess calories without serious comorbidity with body mass index (BMI) of 30.0 to 30.9 in adult- Primary Primary hypertension (CMS/HCC)- Primary Unspecified essential hypertension Other hyperlipidemia (CMS/HCC) Class 1 obesity due to excess calories without serious comorbidity with body mass index (BMI) of 30.0 to 30.9 in adult Class 1 obesity due to excess calories without serious comorbidity with body mass index (BMI) of 32.0 to 32.9 in adult Class 1 obesity due to excess calories without serious comorbidity with body mass index (BMI) of 30.0 to 30.9 in adult- Primary Class 1 obesity due to excess calories without serious comorbidity with body mass index (BMI) of 32.0 to 32.9 in adult Class 1 obesity due to excess calories without serious comorbidity with body mass index (BMI) of 30.0 to 30.9 in adult- Primary Primary hypertension (CMS/HCC) Unspecified essential hypertension Class 1 obesity due to excess calories without serious comorbidity with body mass index (BMI) of 32.0 to 32.9 in adult Need for immunization against influenza Need for prophylactic vaccination and inoculation against influenza Class 1 obesity due to excess calories without serious comorbidity with body mass index (BMI) of 30.0 to 30.9 in adult- Primary Primary hypertension (CMS/HCC) Unspecified essential hypertension Class 1 obesity due to excess calories without serious comorbidity with body mass index (BMI) of 32.0 to 32.9 in adult Primary hypertension (CMS/HCC)- Primary Unspecified essential hypertension Class 1 obesity due to excess calories without serious comorbidity with body mass index (BMI) of 30.0 to 30.9 in adult documented in this encounter [facility] HealthcareEvaluation note* Diagnosis Primary hypertension (CMS/HCC)- Primary Unspecified essential hypertension Other hyperlipidemia (CMS/HCC) Class 1 obesity due to excess calories without serious comorbidity with body mass index (BMI) of 32.0 to 32.9 in adult Sensation of fullness in right ear Primary hypertension (CMS/HCC)- Primary Unspecified essential hypertension Class 1 obesity due to excess calories without serious comorbidity with body mass index (BMI) of 30.0 to 30.9 in adult Class 1 obesity due to excess calories without serious comorbidity with body mass index (BMI) of 32.0 to 32.9 in adult Class 1 obesity due to excess calories without serious comorbidity with body mass index (BMI) of 30.0 to 30.9 in adult- Primary Primary hypertension (CMS/HCC)- Primary Unspecified essential hypertension Other hyperlipidemia (CMS/HCC) Class 1 obesity due to excess calories without serious comorbidity with body mass index (BMI) of 30.0 to 30.9 in adult Class 1 obesity due to excess calories without serious comorbidity with body mass index (BMI) of 32.0 to 32.9 in adult Class 1 obesity due to excess calories without serious comorbidity with body mass index (BMI) of 30.0 to 30.9 in adult- Primary Class 1 obesity due to excess calories without serious comorbidity with body mass index (BMI) of 32.0 to 32.9 in adult Class 1 obesity due to excess calories without serious comorbidity with body mass index (BMI) of 30.0 to 30.9 in adult- Primary Primary hypertension (CMS/HCC) Unspecified essential hypertension Class 1 obesity due to excess calories without serious comorbidity with body mass index (BMI) of 32.0 to 32.9 in adult Need for immunization against influenza Need for prophylactic vaccination and inoculation against influenza Class 1 obesity due to excess calories without serious comorbidity with body mass index (BMI) of 30.0 to 30.9 in adult- Primary Primary hypertension (CMS/HCC) Unspecified essential hypertension Class 1 obesity due to excess calories without serious comorbidity with body mass index (BMI) of 32.0 to 32.9 in adult Primary hypertension (CMS/HCC)- Primary Unspecified essential hypertension Class 1 obesity due to excess calories without serious comorbidity with body mass index (BMI) of 30.0 to 30.9 in adult Primary hypertension (CMS/HCC)- Primary Unspecified essential hypertension Overweight (BMI 25.0-29.9) Overweight documented in this encounter [facility] note* Diagnosis Onset Date Resolution Status Admit Date Essential (primary) hypertension acute July 16, 2025 2:24pm Ganglion cyst of dorsum of left wrist acute July 16, 2025 2:24pm Hyperlipidemia, unspecified acute July 16, 2025 2:24pm Impingement of left shoulder acute July 16, 2025 2:24pm Wellness examination acute Jun 2:24pm Encounter for wellness examination in adult noneactive June 232024 2:24pm [facility] Work Phone: Hospital Discharge instructions No data available for this section [facility] No data available for this section [facility] Reason for Referral Status Reason Specialty Diagnoses / Procedures Re ferred By Contact Referred To Contact Closed Radiology Diagnoses Osteoarthritis of left patellofemoral joint Procedures MRI KNEE LEFT WO CONTRAST Carlos Lopes [address] [place] [address] [place] [address] [facility] [address] [place] [address] Assessments Diagnosis Osteoarthritis of left patellofemoral joint Summary Purpose Family History Relationship Condition Age at Onset Recorded Date/T joey father Cerebrovascular accident (CVA) Unknown Advance Directives Advance Directive Response Recorded Date/ Time Advance Directives No November 02, 2022 1:36pm Advance Directive Response Recorded Date/ Time Advance Directives No November 02, 2022 2:36pm Chief Complaint and Reason for Visit Chief Complaint I10 e78.5 Chief Complaint Admit Date 6M F/U July 16, 2025 2:24pm Reason for Visit Admit Date Essential (primary) hypertension Sept2024 2:24pm Ganglion cyst of dorsum of left wrist Se ptember 2024 2:24pm Hyperlipidemia, unspecified July 162024 2:24pm Impingement of left shoulder June 232024 2:24pm Wellness examination July 16 2:24pm Encounter for wellness examination in [facility] July 16, 2025 2:24pm Additional Source Comments Reason for Visit (unrecogniz ed section and content) Status Reason Specialty Diagnoses / Procedures Re ferred By Contact Referred To Contact Closed Radiology Diagnoses Osteoarthritis of left patellofemoral joint Procedures MRI KNEE LEFT WO CONTRAST Carlos Lopes [address] [place] [address] [place] [address] [address] Reason Comments Follow-up adipex Reason Comments Follow-up Weight Check Reason Onset Date Comments Med Refill 09/17/2024 Reason Onset Date Comments Med Refill 2024 Reason Onset Date Comments Med Refill 10/06/2024 Reason Comments Follow-up 1MO Reason Onset Date Comments Med Refill 07/15/2024 Pt left VM with recent vitals per message left for pt previously regarding Adipex refill. Pt said 118/79, 88 heart rate, 97% O2, 179lbs. Pt did not mention any adverse effects from medication. -SCR Reason Onset Date Comments Med Refill 10/16/2024 Reason Onset Date Comments Med Refill 10/30/2024 Reason Onset Date Comments Med Refill 11/04/2024 Reason Comments Follow-up Reason Comments Follow-up 1m Reason Comments Follow-up 1 m INFORMATION SOURCE (unrecogn ized section and content) DATE CREATED AUTHOR 11/20/2020 [facility] DATE CREATED AUTHOR AUTHOR'S ORGANIZ ATION 12/04/2020 [facility] DATE CREATED AUTHOR AUTHOR'S ORGANIZ ATION 12/16/2021 [facility] DATE CREATED AUTHOR AUTHOR'S ORGANIZ ATION 10/31/2022 [facility] DATE CREATED AUTHOR AUTHOR'S ORGANIZ ATION 11/03/2022 [facility] DATE CREATED AUTHOR AUTHOR'S ORGANIZ ATION 08/24/2024 [facility] DATE CREATED AUTHOR AUTHOR'S ORGANIZ ATION 01/15/2025 [facility] EPIC Care Team (unrecognized sect ion and content) Team Status: Inactive Member Role Status Dates Shaikh Jan MD Primary Care Provider, Attending Pr mily Active Team Status: Active Member Role Status Dates Shaikh Jan MD Primary Care Provider Active Canopy Stringer Relationship Specialty Start Date End Date Shaikh Montoya MD [address] [place] [phone] PCP - General Internal Medicine 03/10/24 Canopy Stringer Relationship Specialty Start Date End Date Shaikh Montoya MD [address] [place] [address] PCP - General Internal Medicine 03/10/24 Canopy Stringer Relationship Specialty Start Date End Date Shaikh Montoya MD [address] [place] [address] PCP - General Internal Medicine 03/10/24 Canopy Stringer Relationship Specialty Start Date End Date Shaikh Montoya MD [address] [place] [address] PCP - General Internal Medicine 03/10/24 Canopy Stringer Relationship Specialty Start Date End Date Shaikh Montoya MD [address] [place] [address] PCP - General Internal Medicine 03/10/24 Canopy Stringer Relationship Specialty Start Date End Date Shaikh Montoya MD [address] [place] [address] PCP - General Internal Medicine 03/10/24 Canopy Stringer Relationship Specialty Start Date End Date Shaikh Montoya MD [address] [place] [address] PCP - General Internal Medicine 03/10/24 Canopy Stringer Relationship Specialty Start Date End Date Shaikh Montoya MD [address] [place] [phone] PCP - General Internal Medicine 03/10/24 Canopy Stringer Relationship Specialty Start Date End Date Shaikh Montoya MD [address] [place] [address] PCP - General Internal Medicine 03/10/24 Canopy Stringer Relationship Specialty Start Date End Date Shaikh Montoya MD [address] [place] [address] PCP - General Internal Medicine 03/10/24 Canopy Stringer Relationship Specialty Start Date End Date Bj Alanis MD [address] [place] [address] PCP - General Family Medicine 12/08/24 Norma Virk NP [address] [place] [address] Nurse Practitioner Family Medicine 12/08/24 Canopy Stringer Relationship Specialty Start Date End Date Bj Alanis MD [address] [place] [address] PCP - General Family Medicine 12/08/24 Norma Virk NP [address] [place] [address] Nurse Practitioner Family Medicine 12/08/24 Canopy Stringer Relationship Specialty Start Date End Date Bj Alanis MD [address] [place] [address] PCP - General Family Medicine 12/08/24 Norma Virk NP [address] [place] [address] Nurse Practitioner Family Medicine 12/08/24 Canopy Stringer Relationship Specialty Start Date End Date Bj Alanis MD [address] [place] [address] PCP - General Family Medicine 12/08/24 Norma Virk NP [address] [place] [address] Nurse Practitioner Family Medicine 12/08/24 Team Status: Active Member Role Status Dates Nikki Humphreys , Primary Care Provider Active Team Status: Inactive Member Role Status Dates Nikki Humphreys , DO Primary Care Provider Active S tart: July 16, 2025 End: July 16, 2025 Nikki Humphreys , Attending Provider Active Star t: July 16, 2025 End: July 16, 2025 Goals (unrecognized section and content) Goals may [...] BE BASED ON THE PRIMARY CLINICAL RECORDS. [facility] [employer] provides no warranty or guarantee of the accuracy or completeness of information in this document.
[2025-07-24 08:18] LABS: Alanine Aminotransferase 30 U/L (14-59); Albumin Globulin Ratio 1.0; Albumin Level 4.4 g/dL (3.4-5.0); Alkaline Phosphatase 83 U/L (46-116); Anion Gap 14.6; Aspartate Amino Transferase 23 U/L (15-37); Blood Urea Nitrogen 16.0 mg/dL (7.0-18.0); Calcium 9.5 mg/dL (8.5-10.1); Carbon Dioxide 27.4 mmol/L (21.0-32.0); Chloride 101 mmol/L (98-107); Cholesterol 192 mg/dL (<=200); Estimated GFR (African America >60 (>=60 mL/min/1.73m^2); Estimated GFR (Non-African Ame >60 (>=60 mL/min/1.73m^2); Globulin 4.2 g/dL; Glucose 93 mg/dL (74-106); HDL Cholesterol 77 mg/dL (40-60); Potassium 4.0 mmol/L (3.5-5.1); Sodium 139 mmol/L (136-145); Total Protein 8.6 g/dL (6.4-8.2); Triglycerides 92 mg/dL (<=150); VLDL CHOLESTEROL 18.4 mg/dL
== END 2025-07-24 07:38 | disposition home or self-care (01) ==
LOC: LAB 07:40
PROVIDERS: PCP Family Medicine; Visit Provider Family Medicine
DX: E78.5 Hyperlipidemia, unspecified (principal); I10 Essential (primary) hypertension
CPT/HCPCS: 36415; 80053; 80061

== ENCOUNTER 2025-08-06 07:38 | Outpatient (OUT) | payer BC, SELFPAY ==
--- NOTE | 2025-08-06 | XR_ITS ---
The [address] [address] Patient Name: PARISA BRICENO MRN: [id number] date: 1970 Sex: F Assigned Patient Location: [facility] Current Patient Location: [facility] Accession/Order Number: [id number] Exam Date: 08/06/2025 10:32 Report Date: 08/06/2025 10:52 At the request of: JUAN JOSÉ PARK DO Procedure: XR shoulder LT min 2V LEFT WRIST - 3 views COMPARISON: None CLINICAL DATA: Enlarging lump at the dorsal left wrist AP, lateral and oblique views were obtained. A marker was placed at the site of concern on the lateral view. There is no fracture, dislocation or bony destruction. No degenerative changes are present. There is minimal soft tissue bulging at the dorsum of the wrist in the area of palpable concern. There is no radiopaque foreign body, subcutaneous air or dystrophic calcification. XR/XR shoulder LT min 2V IMPRESSION: NO ACUTE BONY FINDINGS. LEFT SHOULDER - 4 views CLINICAL HISTORY: Left shoulder pain for the past 6 months with decreased range of motion. No injury. COMPARISON: None AP, Y, axillary and Grashey views were obtained. There is no evidence of fracture or dislocation. There is minimal degenerative change at the acromioclavicular joint and greater tuberosity. There are no significant soft tissue abnormalities. IMPRESSION: NO ACUTE BONY FINDINGS. Impression dictated by: Joanie Salgado M.D. 08/06/2025 10:52 AM Dictation Location: [place] [address] Electronically authenticated by: [id number] Y Date: 08/06/2025 10:52
--- NOTE | 2025-08-06 | XR_ITS ---
The [address] [address] Patient Name: PARISA BRICENO MRN: [id number] date: 1970 Sex: F Assigned Patient Location: [facility] Current Patient Location: [facility] Accession/Order Number: [id number] Exam Date: 08/06/2025 10:32 Report Date: 08/06/2025 10:52 At the request of: JUAN JOSÉ PARK DO Procedure: XR shoulder LT min 2V LEFT WRIST - 3 views COMPARISON: None CLINICAL DATA: Enlarging lump at the dorsal left wrist AP, lateral and oblique views were obtained. A marker was placed at the site of concern on the lateral view. There is no fracture, dislocation or bony destruction. No degenerative changes are present. There is minimal soft tissue bulging at the dorsum of the wrist in the area of palpable concern. There is no radiopaque foreign body, subcutaneous air or dystrophic calcification. XR/XR wrist LT min 3V IMPRESSION: NO ACUTE BONY FINDINGS. LEFT SHOULDER - 4 views CLINICAL HISTORY: Left shoulder pain for the past 6 months with decreased range of motion. No injury. COMPARISON: None AP, Y, axillary and Grashey views were obtained. There is no evidence of fracture or dislocation. There is minimal degenerative change at the acromioclavicular joint and greater tuberosity. There are no significant soft tissue abnormalities. IMPRESSION: NO ACUTE BONY FINDINGS. Impression dictated by: Joanie Salgado M.D. 08/06/2025 10:52 AM Dictation Location: [place] [address] Electronically authenticated by: [id number] Y Date: 08/06/2025 10:52
--- OUTSIDE RECORDS SUMMARY | 2025-08-06 07:40 | XMS_ITS | Clinical Summary ---
Author Organization [facility] Address [address] [place] [address] Care Team Providers Care Social Media Content Manager Name Role Phone Bj Smith MD Primary Care Provider [phone] Norma Virk NURSE ORTHOPEDIC Unavailable [phone] Allergies Active Allergy Reactions Criticality Noted Date Comments Codeine Dizziness,Other,Unknown 03/10/2024 Medications losartan-hydroCHLOR Othiazide (Hyzaar) 50-12.5 MG tabletIndications:P rimary hypertension Take 1 tablet by mouth Daily 90 tablet 3 5 Active phentermine (Adipex-P) 37.5 MG tabletIndications:O verweight (BMI 25.0-29.9) Take 1 tablet (37.5 mg) by mouth in the morning. Take before meals. 30 tablet 5 Active simvastatin (Zocor) 20 MG tabletIndications:O ther hyperlipidemia TAKE 1 TABLET BY MOUTH AT BEDTIME 90 tablet 3 5 Active Active Problems Problem Noted Date Diagnosed Date Other hyperlipidemia 03/10/2024 Assessment & Plan (06/18/2024 1:21 PM EDT): Simvastatin 20mg; Most recent Lipid panel WNL. Denies myalgias; Continue current regimen. Assessment & Plan (03/10/2024 5:07 PM EDT): On simvastatin 20 mg. Check lipid panel Cw same for now. Primary hypertension 03/10/2024 Assessment & Plan (01/14/2025 4:51 PM EDT): BP controlled and monitor PRN. Assessment & Plan (12/12/2024 11:45 AM EST): BP variable and notice edema. Resume hyzaar at lower dose but may need to increase if BP remains elevated. Monitor PRN. Assessment & Plan (11/05/2024 4:17 PM EST): Currently taking Losartan Checks BP at home; Averages are 120's. Improved since stopping hydrochlorothiazide component. Denies dizziness, cough, swelling in extremities, shortness of breath. Given BP log, advised pt to record BP and bring log back with them to next visit. Assessment & Plan (09/10/2024 4:53 PM EST): Currently taking Losartan-hydrochlorothiazide Checks BP at home; [...] log back with them to next visit. Assessment & Plan (06/18/2024 1:01 PM EDT): Losartan hydrochlorothiazide 100-25mg Checks BP at home- Averages are Denies orthostatic changes, dizziness, cough, swelling in extremities. Continue current regimen. Assessment & Plan (04/17/2024 4:06 PM EDT): BP well controlled. On average less than 130/90. Denies lightheadedness, dizziness, syncope, presyncope. C/w losartan-hydrochlorothiazide , BP at goal and well controlled while on Adapex. Assessment & Plan (03/10/2024 5:06 PM EDT): BP well controlled. On average less than 130/90. Tolerating Anti hypertensive w/o adverse effects. Denies lightheadedness, dizziness, syncope, presyncope. Patient encouraged to continue with home BP monitoring and call office if he experiences orthostatic symptoms or persistently elevated BP. C/w losartan-hydrochlorothiazide Check labs Overweight (BMI 25.0-29.9) 03/10/2024 Assessment & Plan (01/14/2025 4:52 PM EDT): Weight down 48 pounds with adipex and now BMI under 27. Stop adipex. Continue exercise and diet changes. Assessment & Plan (12/12/2024 11:45 AM EST): Patient doing well with adipex and lost [...] develop new or worsening symptoms contact office. Assessment & Plan (11/05/2024 4:16 PM EST): Is here today for Weight follow-up; Has [...] month- re-evaluate need for continuing next month. Assessment & Plan (09/10/2024 4:53 PM EST): Has been on Phentermine for 5 months [...] to 1600 calories daily if no contraindications Assessment & Plan (07/30/2024 4:17 PM EDT): Has been on Phentermine for 4 months [...] to 1600 calories daily if no contraindications Assessment & Plan (06/18/2024 4:54 PM EDT): Has been on Phentermine for 3 months [...] to 1600 calories daily if no contraindications Assessment & Plan (05/19/2024 5:07 PM EDT): Wegovy was not covered by patients insurance. Patient was prescribed Adapex. Lost about 18-19 lbs in two months now. Denies any adverse effects on it. Denies palpitations ,elevated BP. Sleeping well. Mood is stable on it. C/w same. Follow up in one month. Assessment & Plan (04/17/2024 4:10 PM EDT): Wegovy was not covered by patients insurance. Patient was prescribed Adapex. Lost about 12 lbs in a month. Denies any adverse effects on it. Denies palpitations ,elevated BP. Sleeping well. Mood is stable on it. C/w same. Follow up in one month. Assessment & Plan (03/10/2024 5:08 PM EDT): Patient educated on risks of increased cardiovascular morbidity/mortality and poor health outcomes associated with unhealthy bodyweight. Patient counseled on lifestyle modifications, dietary restrictions. Patient encouraged to limit caloric intake and increase physical activity. Therapeutic and surgical options reviewed with patient . Patient was offered opportunity to ask questions and address their concern. Will start patient on Wegovy. Likely will need PA. Asked patient to let us know if she is able to tolerate 0.25 mg dose. If so, we can send in a prescription for 0.5 mg/week dose. Resolved Problems Problem Noted Date Diagnosed Date Resolved Date Sensation of fullness in right ear 03/10/2024 12/12/2024 Assessment & Plan (03/10/2024 5:09 PM EDT): Intermittent with ears popping. No abnormal exam finding. No evidence of infection Monitor as clinically indicated Immunizations Immunization Administration Dates Next Due Influenza, injectable, quadrivalent, preservativ e free 09/29/2022 Influenza, seasonal, injectable, preservative fr ee 09/10/2024 Family History Medical History Relation Name Comments HTN Father Heart disease Father Stroke Father Heart disease Mother Relation Name Status Comments Father Alive Mother Alive Social History Tobacco Use Types Packs/Day Years Used Date Smoking Tobacco: Former Cigarettes Passive Smoke Exposure: Past Smokeless Tobacco: Never Tobacco Cessation:Counseling Given: Not Answered Alcohol Use Standard Drinks/Week Comments Yes 0 (1 standard drink = 0.6 oz pur e alcohol) OCCASSIONAL B1300 Health Literacy Answer Date Recor ded How often do you need to hav e someone help you when you read instructions, pamphlets, or other written material from your doctor or pharmacy? Never 06/11/2024 Social Connection and Isolation Panel Answer Date Recorded In a typical week, how many times do you talk on the phone with family, friends, or neighbors? Three times a week 06/11/2024 How often do you get togethe r with friends or relatives? More than three times a week 06/11/2024 How often do you attend chur ch or mu-ism services? More than 4 times per year 06/11/2024 Do you belong to any clubs o r organizations such as uatsdin groups, unions, fraternal or athletic groups, or school groups? Yes 06/11/2024 How often do you attend meet ings of the clubs or organizations you belong to? 1 to 4 times per year 06/11/2024 Are you , , di vorced, , never , or living with a partner? 06/11/2024 AUDIT-C Answer Date Recorded Q1: How often do you have a drink containing alc ohol? 2-3 times a week 06/11/2024 Q2: How many drinks containi ng alcohol do you have on a typical day when you are drinking? 1 or 2 06/11/2024 Q3: How often do you have si x or more drinks on one occasion? Less than monthly 06/11/2024 Overall Financial Resource Strain (CARDIA) Answe r Date Recorded How hard is it for you to pa y for the very basics like food, housing, medical care, and heating? Not hard at all 06/11/2024 PHQ-2 Answer Date Recorded Patient Health Questionnaire-2 Score 0 06/18/2024 [facility] - Occupational Stress Questionnaire Answer Date Recorded Do you feel stress - tense, restless, nervous, or anxious, or unable to sleep at night because your mind is troubled all the time - these days? Not at all 06/11/2024 Exercise Vital Sign Answer Date Recorde d On average, how many days pe r week do you engage in moderate to strenuous exercise (like a brisk walk)? 6 days 06/11/2024 On average, how many minutes do you engage in exercise at this level? 30 min 06/11/2024 Hunger Vital Sign Answer Date Recorded Within the past 12 months, y ou worried that your food would run out before you got the money to buy more. Never true 08/21/20 24 Within the past 12 months, t he food you bought just didn't last and you didn't have money to get more. Never true 06/11/2024 PRAPARE - Transportation Answer Date Re corded In the past 12 months, has l ack of transportation kept you from medical appointments or from getting medications? No 05/23 In the past 12 months, has l ack of transportation kept you from meetings, work, or from getting things needed for daily living? No 06/11/2024 Housing Stability Vital Sign Answer Beau e Recorded In the last 12 months, was t here a time when you were not able to pay the mortgage or rent on time? No 06/11/2024 In the past 12 months, how m any times have you moved where you were living? 0 06/11/2024 At any time in the past 12 m [place], were you homeless or living in a retirement (including now)? No 06/11/2024 Comments No Sex and Gender Information Value Date Recorded Sex Assigned at Not on file Legal Sex Female 9:49 PM EDT Gender Identity Not on file Sexual Orientation Not on file Last Filed Vital Signs Vital Sign Reading Time Taken Comments Blood Pressure 128/76 01/14/2025 3:49 PM EDT Pulse 94 01/14/2025 3:49 PM EDT Temperature 36.4 C (97.5 F) 01/14/2025 3:49 PM EDT Respiratory Rate 20 01/14/2025 3:49 PM EDT Oxygen Saturation 96% 01/14/2025 3:49 PM EDT Inhaled Oxygen Concentration - - Weight 73 kg (161 lb) 01/14/2025 3:49 PM EDT Height 165.1 cm (5' 5 ) 01/14/2025 3:49 PM EDT Body Mass Index 26.79 01/14/2025 3:49 PM EDT Plan of Treatment Not on file Insurance BCBS Care Teams Social Media Content Manager Relationship Specialty Start Date End Date Bj Smith MD PCP - General Family Medicine 12/08/24 Norma Virk NP Nurse Practitioner Family Medicine 12/08/24
--- OUTSIDE RECORDS SUMMARY | 2025-08-06 07:40 | XMS_ITS | Encounter Summary ---
Author Organization [facility] Address [address] [place] [address] Care Team Providers Care Aluminum Siding Mechanic Name Role Phone Shaikh PAYTON Montoya Primary Care Provider [phone] Shaikh PAYTON Montoya Primary Care Provider [phone] Bj Smith MD Primary Care Provider [phone] Norma Virk NP Unavailable [phone] Reason for Visit * Reason Comments Med Refill Encounter Details Date Type Department Care Team (Late st Contact Info) Description 11/03/2023 Refill [facility] [address] [address] Shaikh Montoya MD [address] [place] [address] Primary hypertension (Primary Dx) Social History Tobacco Use Types Packs/Day Years Used Date Smoking Tobacco: Never Assessed Comments Unknown Sex and Gender Information Value Date Recorded Sex Assigned at Not on file Legal Sex Female 9:49 PM EDT Gender Identity Not on file Sexual Orientation Not on file documented as of this encounter Miscellaneous Notes * Telephone Encounter - Shaikh Jan MD - 11/07/2023 11:32 PM EST Approving, but needs appt for additional refills. documented in this encounter Plan of Treatment Not on file documented as of this encounter Visit Diagnoses Diagnosis Primary hypertension- Primary Unspecified essential hypertension documented in this encounter Care Teams Aluminum Siding Mechanic Relationship Specialty Start Date End Date Shaikh Montoya MD PCP - General Internal Medicine 07/22/23 03/09/24 Shaikh Montoya MD PCP - General Internal Medicine 03/10/24 12/07/24 Bj Smith MD PCP - General Family Medicine 12/08/24 Norma Virk NP Nurse Practitioner Family Medicine 12/08/24 documented as of this encounter
--- OUTSIDE RECORDS SUMMARY | 2025-08-06 07:40 | XMS_ITS | Encounter Summary ---
Author Organization [facility] Address [address] [place] [address] Care Team Providers Care Women'S Lacrosse Coach Name Role Phone Shaikh PAYTON Montoya Primary Care Provider [phone] Shaikh PAYTON Montoya Primary Care Provider [phone] Bj Smith MD Primary Care Provider [phone] Norma Virk NURSES DIRECTOR Unavailable [phone] Encounter Details Date Type Department Care Team (Late st Contact Info) Description 10/17/2023 Abstract [facility] [address] [place] [address] Shaikh Montoya MD [address] [place] [address] Social History Tobacco Use Types Packs/Day Years Used Date Smoking Tobacco: Never Assessed Comments Unknown Sex and Gender Information Value Date Recorded Sex Assigned at Not on file Legal Sex Female 9:49 PM EDT Gender Identity Not on file Sexual Orientation Not on file documented as of this encounter Plan of Treatment Not on file documented as of this encounter Visit Diagnoses Not on filedocumented in this encounter Care Teams Women'S Lacrosse Coach Relationship Specialty Start Date End Date Shaikh Montoya MD PCP - General Internal Medicine 07/22/23 03/09/24 Shaikh Montoya MD PCP - General Internal Medicine 03/10/24 12/07/24 Bj Smith MD PCP - General Family Medicine 12/08/24 Norma Virk NP Nurse Practitioner Family Medicine 12/08/24 documented as of this encounter
--- OUTSIDE RECORDS SUMMARY | 2025-08-06 07:40 | XMS_ITS | Encounter Summary ---
Author Organization [facility] Address [address], [address] [place] [address] Care Team Providers Care Regional Retail Sales Manager Name Role Phone Angi Maciel MD Primary Care Provider [phone] Reason for Referral * Imaging (Routine) - Closed Specialty Diagnoses / Procedures Referred By Mildredac jermaine Referred To Contact Radiology Diagnoses Osteoarthritis of left patellofemoral joint Procedures MRI KNEE LEFT WO CONTRAST Cherri Lopes PA [address] [place] [address] [place] [address] Phone: tel: fax: [address] [address] Phone: tel: Referral ID Status Reason Start Date Expiration Date Visits Re quested Visits Authorized [id number] Closed 11/08/2020 12/07/2020 1 1 Encounter Details Date Type Department Care Team (Late st Contact Info) Description 11/09/2020 Transcribe Orders [facility] [address] [place] [id number] Cherri Lopes PA [facility] [address] [place] [address] Osteoarthritis of left patellofemoral joint (Primary Dx) Social History Tobacco Use Types Packs/Day Years Used Date Smoking Tobacco: Never Assessed Comments Unknown Sex and Gender Information Value Date Recorded Sex Assigned at Not on file Legal Sex Female 8:39 AM EST Gender Identity Not on file Sexual Orientation Not on file documented as of this encounter Plan of Treatment Not on file documented as of this encounter Results * MRI KNEE LEFT WO CONTRAST (11/18/2020 4:30 PM EST) Anatomical Region Laterality Modality Thigh, Knee, Leg Magnetic Resona nce 11/18/2020 4:37 PM EST Impressions 11/18/2020 6:34 PM EST No acute internal derangement. Near full-thickness cartilage loss along the weight-bearing surface of the medial femoral condyle. Mild patellar cartilage loss. Narrative 11/18/2020 6:34 PM EST EXAMINATION: MRI OF THE LEFT [...] suspicious bone marrow replacing lesion. Small osteophytes. Procedure Note Soham Fernando MD - 11/18/2020 EXAMINATION: MRI OF THE LEFT KNEE WITHOUT CONTRAST, 11/18/2020 3:43 pm TECHNIQUE: Multiplanar multisequence MRI of the left knee was performed without the administration of intravenous contrast. COMPARISON: None. HISTORY: ORDERING SYSTEM PROVIDED HISTORY: Osteoarthritis of left patellofemoraljoint FINDINGS: MENISCI: Mild degenerative type signal within the posterior horn of the medial meniscus without a discrete tear. Lateral meniscus is intact. CRUCIATE LIGAMENTS: Anterior cruciate ligament is intact. Posteriorcruciate ligament is intact. EXTENSOR MECHANISM: Distal quadriceps tendon is intact. Patellar tendonis intact. LATERAL COLLATERAL LIGAMENT COMPLEX: Intact. MEDIAL COLLATERAL LIGAMENT COMPLEX: Intact. KNEE JOINT: Small joint effusion. Mild cartilage loss along thepatellar apex. Partial-thickness cartilage fissure along the lateral patellarfacet. Near full-thickness cartilage loss along the weight-bearing surface ofthe medial femoral condyle. BONE MARROW: No acute fracture. No suspicious bone marrow replacinglesion. Small osteophytes. IMPRESSION: No acute internal derangement. Near full-thickness cartilage loss along the weight-bearing surface ofthe medial femoral condyle. Mild patellar cartilage loss. us Cherri SHIN IMG MRI ORDERABLES Final Result documented in this encounter Visit Diagnoses Diagnosis Osteoarthritis of left patellofemoral joint- Primary Osteoarthritis of left patellofemoral joint documented in this encounter Care Teams Regional Retail Sales Manager Relationship Specialty Start Date End Date Angi Maciel MD PCP - General Family Medicine 11/10/20 documented as of this encounter
--- OUTSIDE RECORDS SUMMARY | 2025-08-06 07:40 | XMS_ITS | Encounter Summary ---
Author Organization [facility] Address [address] [place] [address] Care Team Providers Care Domestic Violence Advocate Name Role Phone Shaikh PAYTON Montoya Primary Care Provider [phone] Shaikh PAYTON Montoya Primary Care Provider [phone] Bj Smith MD Primary Care Provider [phone] Norma Virk RETAIL RESET MERCHANDISER Unavailable [phone] Encounter Details Date Type Department Care Team (Late st Contact Info) Description 11/05/2023 Orders Only [facility] [address] [place] [id number] Damián Drake MD [address] [place] [address] [address] [place] [address] Social History Tobacco Use Types Packs/Day Years Used Date Smoking Tobacco: Never Assessed Comments Unknown Sex and Gender Information Value Date Recorded Sex Assigned at Not on file Legal Sex Female 9:49 PM EDT Gender Identity Not on file Sexual Orientation Not on file documented as of this encounter Plan of Treatment Not on file documented as of this encounter Procedures Procedure Name Priority Date/Time Associated Diagnosis Comments MAMM BILATERAL DIAG W/CAD (D) Routine 10/25/2023 11:50 AM EST documented in this encounter Results * MAMM BILATERAL DIAG W/CAD (D) (10/25/2023 11:50 AM EST) Anatomical Region Laterality Modality Radiographic Marcelina ging Damián Drake MD IMG XR PROCEDURES Final Result documented in this encounter Visit Diagnoses Not on filedocumented in this encounter Care Teams Domestic Violence Advocate Relationship Specialty Start Date End Date Shaikh Montoya MD PCP - General Internal Medicine 07/22/23 03/09/24 Shaikh Montoya MD PCP - General Internal Medicine 03/10/24 12/07/24 Bj Smith MD PCP - General Family Medicine 12/08/24 Norma Virk NP Nurse Practitioner Family Medicine 12/08/24 documented as of this encounter
--- OUTSIDE RECORDS SUMMARY | 2025-08-06 07:40 | XMS_ITS | Clinical Summary ---
Author Organization [facility] Address [address], [address] [place] [address] Care Team Providers Care Policy Value Calculator Name Role Phone Angi Maciel MD Primary Care Provider [phone] Social History Tobacco Use Types Packs/Day Years Used Date Smoking Tobacco: Never Assessed Comments Unknown Sex and Gender Information Value Date Recorded Sex Assigned at Not on file Legal Sex Female 8:39 AM EST Gender Identity Not on file Sexual Orientation Not on file Plan of Treatment Not on file Insurance BCBS OUT OF STATE Care Teams Policy Value Calculator Relationship Specialty Start Date End Date Angi Maciel MD PCP - General Family Medicine 11/10/20
--- OUTSIDE RECORDS SUMMARY | 2025-08-06 07:41 | XMS_ITS | Clinical Summary ---
Author Organization [facility] Address [address] [place] [address] Phone Care Team Providers Care Hydraulic Dredge Operator Name Role Phone Unavailable Primary Care Provider Unavailabl e Social History Tobacco Use Types Packs/Day Years Used Date Smoking Tobacco: Never Assessed Comments Unknown Sex and Gender Information Value Date Recorded Sex Assigned at Not on file Legal Sex Female 8:15 AM EST Gender Identity Not on file Sexual Orientation Not on file Plan of Treatment Not on file
--- OUTSIDE RECORDS SUMMARY | 2025-08-06 07:41 | XMS_ITS | CCD ---
Author Organization [facility] Care Team Providers Care [place] Commissioner Name Role Phone Angi Park Primary Care Provider [phone] CARLOS LOPES Referring Unavailable ANGI PARK Primary Care Unavailable SHAIKH MONTOYA Admitting Unavailable DR ANGI PARK Primary Care Unavailable SHAIKH MONTOYA Attending Unavailable SHAIKH MONTOYA Consulting Unavailable DR ANGI PARK Primary Care Unavailable AICHHOLZ, ACCOUNT ASSISTANT GERRY Attending Unavailable AICHHOLZ, ACCOUNT ASSISTANT GERRY Consulting Unavailable AICHHOLZ, ACCOUNT ASSISTANT GERRY Admitting Unavailable DR ANGI PARK Primary Care Unavailable SHAIKH MONTOYA Attending Unavailable SHAIKH MONTOYA Consulting Unavailable SHAIKH MONTOYA Admitting Unavailable SHAIKH MONTOYA Primary Care Physician Shaikh Montoya Attending Unavailable Shaikh Montoya Primary Care Unavailable Shaikh Montoya Admitting Unavailable MD Miguelito Montoya Primary Care Provider [phone] MD Miguelito Montoya Attending Provider Shaikh Montoya MD Primary Care Provider [phone] MS. NORMA VIRK Primary Care P hysician Nkechi Read Referring Unavailable Nkechi Read Attending Unavailable Nkechi Read Admitting Unavailable NORMA VIRK Primary Care UnavailBj Torres MD Primary Care Provider Sully SET MAKING MACHINE OPERATOR, Norma Unavailable Sully SET MAKING MACHINE OPERATOR, Norma Unavailable [phone] BJ ALANIS Attending Unavailable BJ ALANIS Attending Unavailable FAWWAD, Attending Unavailable FAWWAD, Attending Unavailable FAWWAD, Attending Unavailable VIRK, NORMA Attending Unavailabl e VIRK, NORMA Attending Unavailabl e VIRK, NORMA Attending Unavailabl e VIRK, NORMA Attending Unavailabl e Nikki Humphreys DO Primary Care Provider Nikki Humphreys DO Attending Provider [phone] Allergies Allergy Classification Reported Allergen(s) Allergy Type Date of Onset Reaction(s) Facility (2 sources) Codeine; Translations: [codeine] Drug Allergy [facility] Repository (20 sources) Codeine; Translations: [codeine] Drug Allergy 4 Dizziness (finding), Syncope (disorder), Dizziness, Other, Unknown [facility] Medications Current Medications Medication Drug [...] VERY IMPORTANT TO YOUR HEALTH. THE CURRENT [employer]PREHENSIVE CANCER [...] Dev Denis MD Transcribed by: LIZANDRO Technologist: [facility] Assessment: BI-RADS Category 1-Negative Recommendation: Normal interval follow-up Normal [facility] Albumin [Mass/volume] in Ser um or PlasmaOrdered By: Shaikh Jan on 11-02-2022 Albumin [Mass/Vol] 4.3 g/dL 3.2-5.5 [facility] Basophils Auto (Bld) [#/Vol] Ordered By: Shaikh Jan on 11-02-2022 Basophils (Bld) [#/Vol] 0.0 10*3/uL 0.0-0.2 [facility] Basophils/100 WBC Auto (Bld) Ordered By: Shaikh Jan on 11-02-2022 Basophils/100 WBC (Bld) 0.5 % . [facility] Cholesterol [Mass/volume] in Serum or PlasmaOrdered By: Shaikh Jan on 11-02-2022 Cholesterol [Mass/Vol] 157 mg/dL 140-200 [facility] Comment on above: Chol less than 200 m g/dl low riskChol 201-239 mg/dl borderline riskChol 240 mg/dl and greater high risk Cholesterol in LDL Calc [Mas s/Vol]Ordered By: Shaikh Jan on 11-02-2022 Cholesterol in LDL [Mass/Vol] 84 mg/dL 0-100 [facility] Comment on above: LDL ATP III CLASSIFI CATIONLDL less than 100 mg/dL OptimalLDL 100-129 mg/dL Near or above optimalLDL 130-159 mg/dL Borderline highLDL 160-189 mg/dL HighLDL greater than 189 mg/dL Very high Cholesterol in VLDL Calc [Ma ss/Vol]Ordered By: Shaikh Jan on 11-02-2022 Cholesterol in VLDL [Mass/Vol] 22 mg/dL [facility] Complete Blood Count Auto Di ffon 11-02-2022 Basophils (Bld) [#/Vol] 0.0 10*3/uL Normal 0.0-0.2 [facility] Comment on above: Result Comment: PERF ORMED BY: [place] [address] PATHOLOGIST MEDICAL CLAIMS ANALYST NAKUL DOWELL M.D. Performed By: #### L IPID, CBC, CMP #### [address] Basophils/100 WBC (Bld) 0.5 % Normal . [facility] Comment on above: Performed By: #### L IPID, CBC, CMP #### [facility] [address] [place] [address] Eosinophils (Bld) [#/Vol] 0.1 10*3/uL Normal 0.0-0.45 [facility] Comment on above: Performed By: #### L IPID, CBC, CMP #### [address] Eosinophils/100 WBC (Bld) 1.2 % Normal . [facility] Comment on above: Performed By: #### L IPID, CBC, CMP #### [address] Erythrocyte distribution width (RBC) [Ratio] 12.7 % Normal 11.9-15.3 [facility] Comment on above: Performed By: #### L IPID, CBC, CMP #### [facility] [address] [place] [address] Hematocrit (Bld) [Volume fraction] 40.2 % Normal 34.0-46.4 [facility] Comment on above: Performed By: #### L IPID, CBC, CMP #### [facility] [address] [place] [address] [place] Hemoglobin (Bld) [Mass/Vol] 13.8 g/dL Normal 11.8-15.4 [facility] Comment on above: Performed By: #### L IPID, CBC, CMP #### [facility] [address] Lymphocytes (Bld) [#/Vol] 3.3 10*3/uL Normal 1.00-4.8 [facility] Comment on above: Performed By: #### L IPID, CBC, CMP #### [facility] [address] Lymphocytes/100 WBC (Bld) 41.8 % Normal . [facility] Comment on above: Performed By: #### L IPID, CBC, CMP #### [address] MCH (RBC) [Entitic mass] 32.9 pg Normal 24.7-34.3 [facility] Comment on above: Performed By: #### L IPID, CBC, CMP #### [address] MCV (RBC) [Entitic vol] 96.1 fL Normal 80-100 [facility] Comment on above: Performed By: #### L IPID, CBC, CMP #### [facility] [address] Mean Corpuscular HGB Conc 34.2 g/dL Normal 32.0-35.0 [facility] Comment on above: Performed By: #### L IPID, CBC, CMP #### [facility] [address] [place] [address] [place] Monocytes (Bld) [#/Vol] 0.5 10*3/uL Normal 0.0-0.8 [facility] Comment on above: Performed By: #### L IPID, CBC, CMP #### [facility] [address] [place] [address] [place] Monocytes/100 WBC (Bld) 6.3 % Normal . [facility] Comment on above: Performed By: #### L IPID, CBC, CMP #### [facility] [address] Neutrophils (Bld) [#/Vol] 4.0 10*3/uL Normal 1.8-7.7 [facility] Comment on above: Performed By: #### L IPID, CBC, CMP #### [address] Neutrophils/100 WBC (Bld) 50.2 % Normal . [facility] Comment on above: Performed By: #### L IPID, CBC, CMP #### [address] NRBC% 0.1 /100{WBC} Normal 0-0.5 [facility] Comment on above: Performed By: #### L IPID, CBC, CMP #### [address] Platelet mean volume (Bld) [Entitic vol] 7.0 fL Normal 6.3-10.7 [facility] Comment on above: Performed By: #### L IPID, CBC, CMP #### [address] Platelets (Bld) [#/Vol] 307 10*3/uL Normal 150-450 [facility] Comment on above: Performed By: #### L IPID, CBC, CMP #### [address] RBC (Bld) [#/Vol] 4.18 10*6/uL Normal 3.60-5.00 [facility] Comment on above: Performed By: #### L IPID, CBC, CMP #### [place] [address] [place] WBC (Bld) [#/Vol] 7.9 10*3/uL Normal 3.8-11.6 [facility] Comment on above: Performed By: #### L IPID, CBC, CMP #### [address] Comprehensive Metabolic Pane kenzie 01-12-2023 Albumin [Mass/Vol] 4.3 g/dL Normal 3.2-5.5 [facility] Comment on above: Performed By: #### L IPID, CBC, CMP #### [address] Albumin/Globulin [Mass ratio] 1.8 {ratio} Normal [facility] Comment on above: Performed By: #### L IPID, CBC, CMP #### [address] ALP [Catalytic activity/Vol] 61 U/L Normal 32-92 [facility] Comment on above: Performed By: #### L IPID, CBC, CMP #### [address] ALT [Catalytic activity/Vol] 32 U/L Normal 10-60 [facility] Comment on above: Performed By: #### L IPID, CBC, CMP #### [address] Anion gap [Moles/Vol] 13.1 mmol/L Normal 6.0-15.0 [facility] Comment on above: Performed By: #### L IPID, CBC, CMP #### [address] AST [Catalytic activity/Vol] 25 U/L Normal 10-42 [facility] Comment on above: Performed By: #### L IPID, CBC, CMP #### [address] Bilirubin [Mass/Vol] 1.3 mg/dL High 0.3-1.2 [facility] Comment on above: Result Comment: Samp les from patients who have taken Naproxen have shown spurious elevation in Total Bilirubin levels. A metabolite of Naproxen, O-desmethylnaproxen, has been shown to interfere with the Javon-Keyla method for measuring Total Bilirubin. Performed By: #### L IPID, CBC, CMP #### [address] Calcium [Mass/Vol] 9.5 mg/dL Normal 8.2-10.2 [facility] Comment on above: Performed By: #### L IPID, CBC, CMP #### [facility] [address] Chloride [Moles/Vol] 101 mmol/L Normal 95-114 [facility] Comment on above: Performed By: #### L IPID, CBC, CMP #### [address] CO2 [Moles/Vol] 24.8 mmol/L Normal 22.0-30.0 [facility] Comment on above: Performed By: #### L IPID, CBC, CMP #### [address] Creatinine [Mass/Vol] 0.69 mg/dL Normal 0.44-1.03 [facility] Comment on above: Performed By: #### L IPID, CBC, CMP #### [address] Estimated GFR ( Deysi > 60 [facility] Comment on above: Result Comment: GFR estimated reference range: According to KDOQI guidelines, <60 ml/min/1.73m2 is sufficient to diagnose a patient with chronic kidney disease. Performed By: #### L IPID, CBC, CMP #### [address] Estimated GFR (Non- Am > 60 [facility] Comment on above: Performed By: #### L IPID, CBC, CMP #### [address] Globulin (S) [Mass/Vol] 2.4 g/dL Normal [facility] Comment on above: Performed By: #### L IPID, CBC, CMP #### [address] Glucose [Mass/Vol] 75 mg/dL Normal 70-100 [facility] Comment on above: Result Comment: [facility] Glucose Reference Range is dependent on time and content of last meal. Glucose of more than 200 mg/dL in a nonstressed, ambulatory subject supports the diagnosis of Diabetes Mellitus. ADA recommended reference range Performed By: #### L IPID, CBC, CMP #### [facility] [address] Potassium [Moles/Vol] 3.9 mmol/L Normal 3.5-5.1 [facility] Comment on above: Performed By: #### L IPID, CBC, CMP #### [facility] [address] Protein [Mass/Vol] 6.7 g/dL Normal 6.1-7.9 [facility] Comment on above: Performed By: #### L IPID, CBC, CMP #### [facility] [address] Sodium [Moles/Vol] 135 mmol/L Low 136-146 [facility] Comment on above: Performed By: #### L IPID, CBC, CMP #### [facility] [address] Urea nitrogen [Mass/Vol] 13 mg/dL Normal 9-23 [facility] Comment on above: Performed By: #### L IPID, CBC, CMP #### [facility] [address] Creatinine and Glomerular fi ltration rate.predicted panel (S/P/Bld)Ordered By: Shaikh Jan on 11-02-2022 Creatinine [Mass/Vol] 0.69 mg/dL 0.44-1.03 [facility] Eosinophils Auto (Bld) [#/Vo l]Ordered By: Shaikh Jan on 11-02-2022 Eosinophils (Bld) [#/Vol] 0.1 10*3/uL 0.0-0.45 [facility] Eosinophils/100 WBC Auto (Bl d)Ordered By: Shaikh Jan on 11-02-2022 Eosinophils/100 WBC (Bld) 1.2 % . [facility] Erythrocyte distribution wid th Auto (RBC) [Ratio]Ordered By: Shaikh Jan on 01-12-2023 Erythrocyte distribution width (RBC) [Ratio] 12.7 % 11.9-15.3 [facility] Estimated glomerular filtrat ion rate (GFR) non- AmericanOrdered By: Shaikh Jan on 11-02-2022 GFR/1.73 sq M.predicted among non-blacks MDRD (S/P/Bld) [Vol rate/Area] > 60 mL/Min [facility] Globulin Calc (S) [Mass/Vol] Ordered By: Shaikh Jan on 11-02-2022 Globulin (S) [Mass/Vol] 2.4 g/dL [facility] Hematocrit Auto (Bld) [Volum e fraction]Ordered By: Shaikh Jan on 11-02-2022 Hematocrit (Bld) [Volume fraction] 40.2 % 34.0-46.4 [facility] Hemoglobin [Mass/volume] in BloodOrdered By: Shaikh Jan on 11-02-2022 Hemoglobin (Bld) [Mass/Vol] 13.8 g/dL 11.8-15.4 [facility] Leukocytes [#/volume] correc barrett for nucleated erythrocytes in Blood by Automated counOrdered By: Shaikh Jan on 11-02-2022 WBC corrected for nucl RBC Auto (Bld) [#/Vol] 7.9 10*3/uL 3.8-11.6 [facility] Lipid Panelon 11-02-2022 Cholesterol [Mass/Vol] 157 mg/dL Normal 140-200 [facility] Comment on above: Result Comment: Chol less than 200 mg/dl low risk Chol 201-239 mg/dl borderline risk Chol 240 mg/dl and greater high risk Performed By: #### L IPID, CBC, CMP #### [facility] [address] Cholesterol in HDL [Mass/Vol] 50 mg/dL Normal 35-85 [facility] Comment on above: Result Comment: HDL CHOL ATP-III CLASSIFICATION Cardiovascular Risk HDL > or equal to 60 mg/dL LOW HDL < 40 mg/dL HIGH Performed By: #### L IPID, CBC, CMP #### [facility] [address] Cholesterol.total/Soo sterol in HDL [Mass ratio] 3.1 {ratio} Normal <5.0 [facility] Comment on above: Result Comment: PERF ORMED BY: [place] [address] PATHOLOGIST MEDICAL CLAIMS ANALYST NAKUL DOWELL M.D. Performed By: #### L IPID, CBC, CMP #### [facility] [address] [place] [address] LDL Cholesterol,Calculated 84 mg/dL Normal 0-100 [facility] Comment on above: Result Comment: LDL ATP III CLASSIFICATION LDL less than 100 mg/dL Optimal LDL 100-129 mg/dL Near or above optimal LDL 130-159 mg/dL Borderline high LDL 160-189 mg/dL High LDL greater than 189 mg/dL Very high Performed By: #### L IPID, CBC, CMP #### [address] Triglyceride w/Reflex 114 mg/dL Normal 35-149 [facility] Comment on above: Result Comment: TRIG ATP III CLASSIFICATION TRIG less than 150 mg/dL Normal TRIG 150-199 mg/dL Borderline high TRIG 200-500 mg/dL High TRIG greater than 500 mg/dL Very high Standard traceable to the Center for Disease Conrtrol and Prevention (CDC) test method. Performed By: #### L IPID, CBC, CMP #### [address] VLDL CHOLESTEROL 22 mg/dL Normal [facility] Comment on above: Performed By: #### L IPID, CBC, CMP #### [facility] [address] [place] [address] Lymphocytes Auto (Bld) [#/Vo l]Ordered By: Shaikh Jan on 11-02-2022 Lymphocytes (Bld) [#/Vol] 3.3 10*3/uL 1.00-4.8 [facility] Lymphocytes/100 WBC Auto (Bl d)Ordered By: Shaikh Jan on 11-02-2022 Lymphocytes/100 WBC (Bld) 41.8 % . [facility] MCH Auto (RBC) [Entitic mass ]Ordered By: Shaikh Jan on 11-02-2022 MCH (RBC) [Entitic mass] 32.9 pg 24.7-34.3 [facility] MCHC Auto (RBC) [Mass/Vol]Or dered By: Shaikh Jan on 11-02-2022 MCHC (RBC) [Mass/Vol] 34.2 g/dL 32.0-35.0 [facility] MCV Auto (RBC) [Entitic vol] Ordered By: Shaikh Jan on 11-02-2022 MCV (RBC) [Entitic vol] 96.1 fL 80-100 [facility] Monocytes Auto (Bld) [#/Vol] Ordered By: Shaikh Jan on 11-02-2022 Monocytes (Bld) [#/Vol] 0.5 10*3/uL 0.0-0.8 [facility] Monocytes/100 WBC Auto (Bld) Ordered By: Shaikh Jan on 11-02-2022 Monocytes/100 WBC (Bld) 6.3 % . [facility] Neutrophils Auto (Bld) [#/Vo l]Ordered By: Shaikh Jan on 11-02-2022 Neutrophils (Bld) [#/Vol] 4.0 10*3/uL 1.8-7.7 [facility] Neutrophils/100 WBC Auto (Bl d)Ordered By: Shaikh Jan on 11-02-2022 Neutrophils/100 WBC (Bld) 50.2 % . [facility] No Panel InformationOrdered By: Shaikh Jan on 11-02-2022 Estimated GFR () > 60 mL/Min [facility] Comment on above: GFR estimated refere nce range: According to KDOQI guidelines, <60 ml/min/1.73m2 is sufficient to diagnose a patient with chronic kidney disease. Pharmacy Creatinine Clearance (Chem N/A [facility] Nucleated erythrocytes [Pres ence] in Blood by Automated countOrdered By: Shaikh Jan on 11-02-2022 Nucleated RBC Auto Ql (Bld) 0.1 /100{WBC} 0-0.5 [facility] Platelet mean volume Auto (B ld) [Entitic vol]Ordered By: Shaikh Jan on 11-02-2022 Platelet mean volume (Bld) [Entitic vol] 7.0 fL 6.3-10.7 [facility] Platelets Auto (Bld) [#/Vol] Ordered By: Shaikh Jan on 11-02-2022 Platelets (Bld) [#/Vol] 307 10*3/uL 150-450 [facility] Protein [Mass/volume] in Ser um or PlasmaOrdered By: Shaikh Jan on 11-02-2022 Protein [Mass/Vol] 6.7 g/dL 6.1-7.9 [facility] RBC Auto (Bld) [#/Vol]Ordere d By: Shaikh Jan on 11-02-2022 RBC (Bld) [#/Vol] 4.18 10*6/uL 3.60-5.00 [facility] Serum or plasma alanine lynch otransferase measurement without P-5'-P (enzymatic activiOrdered By: Shaikh Jan on 11-02-2022 ALT No additional P-5'-P [Catalytic activity/Vol] 32 U/L 10-60 [facility] Serum or plasma albumin/glob ulin mass ratioOrdered By: Shaikh Jan on 11-02-2022 Albumin/Globulin [Mass ratio] 1.8 {ratio} [facility] Serum or plasma alkaline beatrice sphatase measurement (enzymatic activity/volume)Ordered By: Shaikh Jan on 11-02-2022 ALP [Catalytic activity/Vol] 61 U/L 32-92 [facility] Serum or plasma anion gap de terminationOrdered By: Shaikh Jan on 11-02-2022 Anion gap [Moles/Vol] 13.1 mmol/L 6.0-15.0 [facility] Serum or plasma aspartate am inotransferase measurement (enzymatic activity/volume)Ordered By: Shaikh Jan on 11-02-2022 AST [Catalytic activity/Vol] 25 U/L 10-42 [facility] Serum or plasma calcium kingston urement (mass/volume)Ordered By: Shaikh Jan on 11-02-2022 Calcium [Mass/Vol] 9.5 mg/dL 8.2-10.2 [facility] Serum or plasma chloride jose d surement (moles/volume)Ordered By: Shaikh Jan on 11-02-2022 Chloride [Moles/Vol] 101 mmol/L 95-114 [facility] Serum or plasma glucose kingston urement (mass/volume)Ordered By: Shaikh Jan on 11-02-2022 Glucose [Mass/Vol] 75 mg/dL 70-100 [facility] Comment on above: ADA recommended refe rence rangeRandom Glucose Reference Range is dependent on time and content of last meal. Glucose of more than 200 mg/dL in a nonstressed, ambulatory subject supports the diagnosis of Diabetes Mellitus. Serum or plasma high density lipoprotein (HDL) cholesterol measurementOrdered By: Shaikh Jan on 11-02-2022 Cholesterol in HDL [Mass/Vol] 50 mg/dL 35-85 [facility] Comment on above: HDL CHOL ATP-III CLA SSIFICATION Cardiovascular RiskHDL > or equal to 60 mg/dL LOWHDL < 40 mg/dL HIGH Serum or plasma potassium me asurement (moles/volume)Ordered By: Shaikh Jan on 11-02-2022 Potassium [Moles/Vol] 3.9 mmol/L 3.5-5.1 [facility] Serum or plasma sodium measu rement (moles/volume)Ordered By: Shaikh Jan on 11-02-2022 Sodium [Moles/Vol] 135 mmol/L 136-146 [facility] Serum or plasma total biliru bin measurement (mass/volume)Ordered By: Shaikh Jan on 11-02-2022 Bilirubin [Mass/Vol] 1.3 mg/dL 0.3-1.2 [facility] Comment on above: Samples from patient s who have taken Naproxen have shown spurious elevation in Total Bilirubin levels. A metabolite of Naproxen, O-desmethylnaproxen, has been shown to interfere with the Curtis method for measuring Total Bilirubin. Serum or plasma total carbon dioxide measurement (moles/volume)Ordered By: Shaikh Jan on 11-02-2022 CO2 [Moles/Vol] 24.8 mmol/L 22.0-30.0 [facility] Serum or plasma total choles terol/high density lipoprotein (HDL) cholesterol mass ratOrdered By: Shaikh Jan on 11-02-2022 Cholesterol.total/Soo sterol in HDL [Mass ratio] 3.1 {ratio} <5.0 [facility] Serum or plasma urea nitroge n measurement (mass/volume)Ordered By: Shaikh Jan on 11-02-2022 Urea nitrogen [Mass/Vol] 13 mg/dL 9- [facility] Triglyceride [Mass/volume] i n Serum or PlasmaOrdered By: Shaikh Jan on 11-02-2022 Triglyceride [Mass/Vol] 114 mg/dL 35-149 [facility] Comment on above: TRIG ATP III CLASSIF ICATIONTRIG less than 150 mg/dL NormalTRIG 150-199 mg/dL Borderline highTRIG 200-500 mg/dL High TRIG greater than 500 mg/dL Very highStandard traceable to the Center for Disease Conrtrol and Prevention (CDC) test method. WBC Auto (Bld) [#/Vol]Ordere d By: Shaikh Jan on 11-02-2022 WBC (Bld) [#/Vol] 7.9 10*3/uL 3.8-11.6 [facility] US Venous Reflux/Insuff, Obinna Loweron 10-31-2022 US [...] by Joseph Leslie on 10/31/2022 1301 Normal [facility] [employer]acking Machine Operator US Venous, Unilat, Lower Ext Lefton 10-31-2022 [...] by Joseph Leslie on 10/31/2022 [address] [facility] LIPID PROFILEon 12-12-2021 CHOL-HDL RATIO NORM SEE BELOW Normal [facility] Comment on above: Result Comment: 3.3 - 4.4 LOW RISK 4.4 - 7.1 AVERAGE RISK 7.1 - 11.0 MODERATE RISK >11.0 HIGH RISK Performed By: #### A ST, LIPID, ALT #### [facility] [address] [address] [address] Edna Stark Cholesterol [Mass/Vol] 160 mg/dL Normal <=200 [facility] Comment on above: Performed By: #### A ST, LIPID, ALT #### [facility] [address] [address] [address] Edna Stark Cholesterol in HDL [Mass/Vol] 55 mg/dL Normal [facility] Comment on above: Performed By: #### A ST, LIPID, ALT #### [facility] [address] [address] [address] Edna Stark Cholesterol in LDL [Mass/Vol] 79.2 mg/dL Normal [facility] Comment on above: Performed By: #### A ST, LIPID, ALT #### [facility] [address] [address] [address] Edna Stark Cholesterol.total/Soo sterol in HDL [Mass ratio] 2.9 {ratio} Normal [facility] Comment on above: Performed By: #### A ST, LIPID, ALT #### [facility] [address] [address] [address] Edna Stark HDL NORMAL > or = 60 mg/dl - LO W CARDIOVASCULAR RISK <40 mg/dl - HIGH CARDIOVASCULAR RISK Normal [facility] Comment on above: Performed By: #### A ST, LIPID, ALT #### [facility] [address] [address] [address] Edna Stark LDL CALC NORMAL SEE BELOW Normal [facility] Comment on above: Result Comment: <100 mg/dl OPTIMAL 100 - 129 mg/dl NEAR OR ABOVE OPTIMAL 130 - 159 mg/dl BORDERLINE HIGH 160 - 189 mg/dl HIGH >190 mg/dl VERY HIGH Performed By: #### A ST, LIPID, ALT #### [facility] [address] [address] [address] Edna Stark Triglyceride [Mass/Vol] 129 mg/dL Normal <=150 [facility] Comment on above: Performed By: #### A ST, LIPID, ALT #### [facility] [address] [address] [address] Edna Stark VLDL CALC 25.8 mg/dL Normal [facility] Comment on above: Performed By: #### A ST, LIPID, ALT #### [facility] [address] [address] [address] Edna Stark PROF CHEM 8 (BAS METB)on Anion gap [Moles/Vol] 14.0 mmol/L Normal [facility] Comment on above: Performed By: #### B MP #### [facility] [address] [place] [address] Dr. Edna Stark Calcium [Mass/Vol] 9.0 mg/dL Normal 8.4-10.2 [facility] Comment on above: Performed By: #### B MP #### [facility] [address] [place] [address] Dr. Edna Stark Chloride [Moles/Vol] 103 mmol/L Normal 98-107 [facility] Comment on above: Performed By: #### B MP #### [facility] [address] [place] [address] Dr. Edna Stark CO2 [Moles/Vol] 26.5 mmol/L Normal 22.0-30.0 [facility] Comment on above: Performed By: #### B MP #### [facility] [address] [address] [address] Edna Stark Creatinine [Mass/Vol] 0.62 mg/dL Normal 0.52-1.04 [facility] Comment on above: Performed By: #### B MP #### [facility] [address] [place] [address] Dr. Edna Stark EGFR-AF FAROESE >60 Normal >=60 [facility] Comment on above: Performed By: #### B MP #### [facility] [address] [address] [address] Edna Stark EGFR-NON AF FAROESE >60 Normal >=60 [facility] Comment on above: Performed By: #### B MP #### [facility] [address] [place] [address] Dr. Edna Stark Glucose [Mass/Vol] 88 mg/dL Normal 74-106 [facility] Comment on above: Performed By: #### B MP #### [facility] [address] [place] [address] Dr. Edna Stark Potassium [Moles/Vol] 3.5 mmol/L Normal 3.4-5.0 [facility] Comment on above: Performed By: #### B MP #### [facility] [address] [place] [address] Dr. Edna Stark Sodium [Moles/Vol] 140 mmol/L Normal 137-145 [facility] Comment on above: Performed By: #### B MP #### [facility] [address] [address] [address] Edna Stark Urea nitrogen [Mass/Vol] 12.0 mg/dL Normal 7.0-17.0 [facility] Comment on above: Performed By: #### B MP #### [facility] [address] [place] [address] Dr. Edna Stark Urea nitrogen/Creatinine [Mass ratio] 19.4 mg/mg Normal [facility] Comment on above: Performed By: #### B MP #### [facility] [address] [place] [address] Dr. Edna Knight 12-12-2021 AST [Catalytic activity/Vol] 28 U/L Normal 14-36 [facility] Comment on above: Performed By: #### A ST, LIPID, ALT #### [facility] [address] [place] [address] Dr. Edna Stark SGPTon 12-12-2021 ALT [Catalytic activity/Vol] 55 U/L Critically high 9-52 [facility] Comment on above: Performed By: #### A ST, LIPID, ALT #### [facility] [address] [place] [address] Dr. Edna Stark CBC AUTO DIFFon 09-21-2021 BASO # 0.0 103/ul Normal 0.0-0.1 [facility] Comment on above: Performed By: #### C BC #### [facility] [address] [place] [address] Dr. Edna Stark Basophils/100 WBC (Bld) 0.4 % Normal 0.2-2.0 [facility] Comment on above: Performed By: #### C BC #### [facility] [address] [place] [address] Dr. Edna Stark EO # 0.1 103/ul Normal 0.0-0.7 [facility] Comment on above: Performed By: #### C BC #### [facility] [address] [place] [address] Dr. Edna Stark Eosinophils/100 WBC (Bld) 1.3 % Normal 0.9-7.0 [facility] Comment on above: Performed By: #### C BC #### [facility] [address] [place] [address] Dr. Edna Stark Erythrocyte distribution width (RBC) [Ratio] 12.1 % Normal 11.0-15.0 [facility] Comment on above: Performed By: #### C BC #### [facility] [address] [place] [address] Dr. Edna Stark Hematocrit (Bld) [Volume fraction] 39.5 % Normal 36.0-48.0 [facility] Comment on above: Performed By: #### C BC #### [facility] [address] [place] [address] Dr. Edna Stark Hemoglobin (Bld) [Mass/Vol] 13.2 g/dL Normal 12.0-16.0 [facility] Comment on above: Performed By: #### C BC #### [facility] [address] [place] [address] Dr. Edna Stark IG # 0.02 10e3/ul Normal 0.00-0.03 [facility] Comment on above: Performed By: #### C BC #### [facility] [address] [place] [address] Dr. Edna Stark IG % 0.3 % Normal 0.0-0.5 [facility] Comment on above: Performed By: #### C BC #### [facility] [address] [place] [address] Dr. Edna Stark LYMPH # 2.4 103/ul Normal 1.2-3.8 [facility] Comment on above: Performed By: #### C BC #### [facility] [address] [place] [address] Dr. Edna Stark Lymphocytes/100 WBC (Bld) 35.8 % Normal 20.5-60.0 [facility] Comment on above: Performed By: #### C BC #### [facility] [address] [place] [address] Dr. Edna Stark MANUAL DIFF REQ NO Normal [facility] Comment on above: Performed By: #### C BC #### [facility] [address] [place] [address] Dr. Edna Stark MCH (RBC) [Entitic mass] 32.6 pg Normal 26.7-34.0 [facility] Comment on above: Performed By: #### C BC #### [facility] [address] [place] [address] Dr. Edna Stark MCHC (RBC) [Mass/Vol] 33.4 g/dL Normal 29.9-35.2 [facility] Comment on above: Performed By: #### C BC #### [facility] [address] [place] [address] Dr. Edna Stark MCV (RBC) [Entitic vol] 97.5 fL Normal 81.0-99.0 [facility] Comment on above: Performed By: #### C BC #### [facility] [address] [place] [address] Dr. Edna Stark MONO # 0.5 103/ul Normal 0.3-0.8 [facility] Comment on above: Performed By: #### C BC #### [facility] [address] [place] [address] Dr. Edna Stark Monocytes/100 WBC (Bld) 7.2 % Normal 1.7-12.0 [facility] Comment on above: Performed By: #### C BC #### [facility] [address] [place] [address] Dr. Edna Stark NEUT # 3.7 103/ul Normal 1.4-6.5 [facility] Comment on above: Performed By: #### C BC #### [facility] [address] [place] [address] Dr. Edna Stark Neutrophils/100 WBC (Bld) 55.0 % Normal 43.0-75.0 [facility] Comment on above: Performed By: #### C BC #### [facility] [address] [place] [address] Dr. Edna Stark Platelet mean volume (Bld) [Entitic vol] 9.2 fL Critically low 9.5-13.5 [facility] Comment on above: Performed By: #### C BC #### [facility] [address] [place] [address] Dr. Edna Stark PLT 270 103/ul Normal 150-450 [facility] Comment on above: Performed By: #### C BC #### [facility] [address] [place] [address] Dr. Edna Stark RBC 4.05 106/ul Critically low 4.20-5.40 [facility] Comment on above: Performed By: #### C BC #### [facility] [address] [place] [address] [address] Edna Stark WBC 6.7 103/ul Normal 4.0-11.0 [facility] Comment on above: Performed By: #### C BC #### [facility] [address] [place] [address] [address] Edna Stark GLYCOHEMOGLOBIN A1Con 2020 ADA RECOMMENDATION ADA THERAPEUTIC TARGET 6.0 - 7.0 ACTION SUGGESTED > 7.0 Normal [facility] Comment on above: Performed By: #### A 1C #### [facility] [address] [place] [address] Dr. Edna Stark Glucose [Mass/Vol] 114 mg/dL Normal [facility] Comment on above: Performed By: #### A 1C #### [facility] [address] [place] [address] Dr. Edna Stark HbA1c (Bld) [Mass fraction] 5.6 % Normal <=6.0 [facility] Comment on above: Performed By: #### A 1C #### [facility] [address] [place] [address] Dr. Edna Stark LIPID PROFILEon 09-21-2021 CHOL-HDL RATIO NORM SEE BELOW Normal [facility] Comment on above: Result Comment: 3.3 - 4.4 LOW RISK 4.4 - 7.1 AVERAGE RISK 7.1 - 11.0 MODERATE RISK >11.0 HIGH RISK Performed By: #### C MP, LIPID #### [facility] [address] [place] [address] Dr. Edna Stark Cholesterol [Mass/Vol] 239 mg/dL Critically high <=200 [facility] Comment on above: Performed By: #### C MP, LIPID #### [facility] [address] [place] [address] Dr. Edna Stark Cholesterol in HDL [Mass/Vol] 47 mg/dL Normal [facility] Comment on above: Performed By: #### C MP, LIPID #### [facility] [address] [address] [address] Edna Stark Cholesterol in LDL [Mass/Vol] 145.4 mg/dL Normal [facility] Comment on above: Performed By: #### C MP, LIPID #### [facility] [address] [place] [address] Dr. Edna Stark Cholesterol.total/Soo sterol in HDL [Mass ratio] 5.1 {ratio} Normal [facility] Comment on above: Performed By: #### C MP, LIPID #### [facility] [address] [place] [address] Dr. Edna Stark HDL NORMAL > or = 60 mg/dl - LO W CARDIOVASCULAR RISK <40 mg/dl - HIGH CARDIOVASCULAR RISK Normal [facility] Comment on above: Performed By: #### C MP, LIPID #### [facility] [address] [place] [address] Dr. Edna Stark LDL CALC NORMAL SEE BELOW Normal [facility] Comment on above: Result Comment: <100 mg/dl OPTIMAL 100 - 129 mg/dl NEAR OR ABOVE OPTIMAL 130 - 159 mg/dl BORDERLINE HIGH 160 - 189 mg/dl HIGH >190 mg/dl VERY HIGH Performed By: #### C MP, LIPID #### [facility] [address] [place] [address] Dr. Edna Stark Triglyceride [Mass/Vol] 233 mg/dL Critically high <=150 [facility] Comment on above: Performed By: #### C MP, LIPID #### [facility] [address] [place] [address] Dr. Edna Stark VLDL CALC 46.6 mg/dL Normal [facility] Comment on above: Performed By: #### C MP, LIPID #### [facility] [address] [address] [address] Edna Stark PROF 14(COMP METB)on 021 Albumin [Mass/Vol] 3.9 g/dL Normal 3.5-5.0 [facility] Comment on above: Performed By: #### C MP, LIPID #### [facility] [address] [place] [address] Dr. Edna Stark Albumin/Globulin [Mass ratio] 1.0 {ratio} Normal [facility] Comment on above: Performed By: #### C MP, LIPID #### [facility] [address] [place] [address] Dr. Edna Stark ALP [Catalytic activity/Vol] 74 U/L Normal 38-126 [facility] Comment on above: Performed By: #### C MP, LIPID #### [facility] [address] [place] [address] [address] Edna Stark ALT [Catalytic activity/Vol] 39 U/L Normal 9-52 [facility] Comment on above: Performed By: #### C MP, LIPID #### [facility] [address] [address] [address] Edna Stark Anion gap [Moles/Vol] 10.3 mmol/L Normal [facility] [place] Comment on above: Performed By: #### C MP, LIPID #### [facility] [address] [place] [address] Dr. Edna Stark AST [Catalytic activity/Vol] 20 U/L Normal 14-36 [facility] Comment on above: Performed By: #### C MP, LIPID #### [facility] [address] [address] [address] Edna Stark Bilirubin [Mass/Vol] 0.5 mg/dL Normal 0.2-1.3 [facility] Comment on above: Performed By: #### C MP, LIPID #### [facility] [address] [place] [address] [address] Edna Stark Calcium [Mass/Vol] 9.4 mg/dL Normal 8.4-10.2 [facility] Comment on above: Performed By: #### C MP, LIPID #### [facility] [address] [address] [address] Edna Stark Chloride [Moles/Vol] 101 mmol/L Normal 98-107 [facility] Comment on above: Performed By: #### C MP, LIPID #### [facility] [address] [address] [address] Edna Stark CO2 [Moles/Vol] 31.6 mmol/L Critically high 22.0-30.0 [facility] Comment on above: Performed By: #### C MP, LIPID #### [facility] [address] [address] [address] Edna Stark Creatinine [Mass/Vol] 0.72 mg/dL Normal 0.52-1.04 [facility] Comment on above: Performed By: #### C MP, LIPID #### [facility] [address] [address] [address] Edna Stark EGFR-AF FAROESE >60 Normal >=60 [facility] Comment on above: Performed By: #### C MP, LIPID #### [facility] [address] [address] [address] Edna Stark EGFR-NON AF FAROESE >60 Normal >=60 [facility] Comment on above: Performed By: #### C MP, LIPID #### [facility] [address] [address] [address] Edna Stark Globulin (S) [Mass/Vol] 4.0 g/dL Normal [facility] Comment on above: Performed By: #### C MP, LIPID #### [facility] [address] [place] [address] [address] Edna Stark Glucose [Mass/Vol] 105 mg/dL Normal 74-106 [facility] Comment on above: Performed By: #### C MP, LIPID #### [facility] [address] [address] [address] Edna Stark Potassium [Moles/Vol] 3.9 mmol/L Normal 3.4-5.0 [facility] Comment on above: Performed By: #### C MP, LIPID #### [facility] [address] [address] [address] Edna Stark Protein [Mass/Vol] 7.9 g/dL Normal 6.1-8.2 [facility] Comment on above: Performed By: #### C MP, LIPID #### [facility] [address] [address] [address] Edna Stark Sodium [Moles/Vol] 139 mmol/L Normal 137-145 [facility] Comment on above: Performed By: #### C MP, LIPID #### [facility] [address] [place] [place], [place] [address] Dr. Edna Stark Urea nitrogen [Mass/Vol] 20.0 mg/dL Critically high 7.0-17.0 [facility] Comment on above: Performed By: #### C MP, LIPID #### [facility] [address] [place], [place] [address] Dr. Edna Stark Urea nitrogen/Creatinine [Mass ratio] 27.8 mg/mg Normal [facility] Comment on above: Performed By: #### C MP, LIPID #### [facility] [address] [place], [place] [address] Dr. Edna Stark Orthopedic Office/Clinic Not [facility] 12-02-2020 Orthopedic Office/Clinic Note Chief Complaint Patient here to review results fo left knee MRI. MRI REPLACED BY [facility]. History of Present Illness 50 year-old established female patient presents for FU of left knee MRI. Patient states that her symptoms are variable depending on the day with aching, stiffness, and swelling aggravating by prolonged standing and twisting. MRI to r/o meniscus tear. MRI from [facility] demonstrated no evidence of meniscal or ligamentous [...] Carlos Lopes PA-C 12/02/20 14:55 EST Normal [facility] MRI KNEE LEFT WO CONTRASTon 11-18-2020 [...] Soham Fernando MD 11/18/20 Final result Normal [facility] No acute internal derangement. Near full-thickness cartilage loss along the weight-bearing surface of the medial femoral condyle. Mild patellar cartilage loss. [facility] [place] [facility], [place] EXAMINATION: MRI OF THE LEFT KNEE WITHOUT [...] suspicious bone marrow replacing lesion. Small osteophytes. [place], [place] [employer], [employer] Incoming Radiant Results From [employer] - 11/18/2020 6:37 PM EST EXAMINATION: MRI [...] medial femoral condyle. Mild patellar cartilage loss. [place], [place] Orthopedic Office/Clinic Not [facility] 10-28-2020 Orthopedic [...] Carlos Lopes PA-C 10/28/20 16:22 EST Normal [facility] XR Knee 3 Views Lefton 10-04 [...] Electronically Signed in Other Vendor System) Normal [facility] Orthopedic Office/Clinic Not [facility] 10-01-2020 Orthopedic [...] Carlos Lopes PA-C 10/01/20 10:38 EST Normal [facility] Vital Signs Date Time Vital Sign Value Performing Clinician Facility 07-16-2025 14:31-0400 Body height 167.64 cm Nikki Petr DO Work Phone: [facility] 07-16-2025 14:31-0400 Body mass index (BMI) [Ratio] 26.8 kg/m2 Nikki Petr DO Work Phone: [facility] 07-16-2025 14:31-0400 Body weight 75.29 kg Nikki Petr DO Work Phone: [facility] 07-16-2025 14:31-0400 Diastolic blood pressure 72 mm[Hg] Nikki Petr DO Work Phone: [facility] 07-16-2025 14:31-0400 Heart rate 89 /min Nikki Petr DO Work Phone: [facility] 07-16-2025 14:31-0400 Respiratory rate 16 /min Nikki Petr DO Work Phone: [facility] 07-16-2025 14:31-0400 SaO2% (BldA) [Mass fraction] 98 % Nikki Petr DO Work Phone: [facility] 07-16-2025 14:31-0400 Systolic blood pressure 124 mm[Hg] Nikki Humphreys DO Work Phone: [facility] 01-14-2025 15:49-0400 Body height 165.1 cm Bj Alanis MD Work Phone: [facility] 01-14-2025 15:49-0400 Body mass index (BMI) [Ratio] 26.79 kg/m2 Bj Alanis MD Work Phone: [facility] 01-14-2025 15:49-0400 Body temperature 97.5 [degF] Bj Alanis MD Work Phone: [facility] 01-14-2025 15:49-0400 Body weight 73.03 kg Bj Alanis MD Work Phone: [facility] 01-14-2025 15:49-0400 Diastolic blood pressure 76 mm[Hg] Bj Alanis MD Work Phone: [facility] 01-14-2025 15:49-0400 Heart rate 94 /min Bj Alanis MD Work Phone: [facility] 01-14-2025 15:49-0400 Respiratory rate 20 /min Bj Alanis MD Work Phone: [facility] 01-14-2025 15:49-0400 SaO2% (BldA) [Mass fraction] 96 % Bj Alanis MD Work Phone: [facility] 01-14-2025 15:49-0400 Systolic blood pressure 128 mm[Hg] Bj Alanis MD Work Phone: [facility] 12-12-2024 11:13-0500 Body height 165.1 cm Bj Alanis MD Work Phone: [facility] 12-12-2024 11:13-0500 Body mass index (BMI) [Ratio] 27.29 kg/m2 jB Alanis MD Work Phone: [facility] 12-12-2024 11:13-0500 Body temperature 96.21 [degF] Bj Alanis MD Work Phone: [facility] 12-12-2024 11:13-0500 Body weight 74.39 kg Bj Alanis MD Work Phone: [facility] 12-12-2024 11:13-0500 Diastolic blood pressure 78 mm[Hg] Bj Alanis MD Work Phone: [facility] 12-12-2024 11:13-0500 Heart rate 90 /min Bj Alanis MD Work Phone: [facility] 12-12-2024 11:13-0500 Respiratory rate 22 /min Bj Alanis MD Work Phone: [facility] 12-12-2024 11:13-0500 SaO2% (BldA) [Mass fraction] 98 % Bj Alanis MD Work Phone: [facility] 12-12-2024 11:13-0500 Systolic blood pressure 126 mm[Hg] Bj Alanis MD Work Phone: [facility] 11-05-2024 16:04-0500 Body height 165.1 cm Norma Virk SET MAKING MACHINE OPERATOR Work Phone: [facility] 11-05-2024 16:04-0500 Body mass index (BMI) [Ratio] 27.79 kg/m2 Norma Virk SET MAKING MACHINE OPERATOR Work Phone: [facility] 11-05-2024 16:04-0500 Body temperature 96.69 [degF] Norma Virk SET MAKING MACHINE OPERATOR Work Phone: [facility] 11-05-2024 16:04-0500 Body weight 75.75 kg Norma Virk SET MAKING MACHINE OPERATOR Work Phone: [facility] 11-05-2024 16:04-0500 Diastolic blood pressure 78 mm[Hg] Norma Virk SET MAKING MACHINE OPERATOR Work Phone: [facility] 11-05-2024 16:04-0500 Heart rate 95 /min Norma Virk SET MAKING MACHINE OPERATOR Work Phone: [facility] 11-05-2024 16:04-0500 Respiratory rate 16 /min Norma Vrik SET MAKING MACHINE OPERATOR Work Phone: [facility] 11-05-2024 16:04-0500 SaO2% (BldA) [Mass fraction] 99 % Norma Virk SET MAKING MACHINE OPERATOR Work Phone: [facility] 11-05-2024 16:04-0500 Systolic blood pressure 130 mm[Hg] Norma Virk SET MAKING MACHINE OPERATOR Work Phone: [facility] 09-10-2024 16:37-0500 Body height 165.1 cm Norma Virk SET MAKING MACHINE OPERATOR Work Phone: [facility] 09-10-2024 16:37-0500 Body mass index (BMI) [Ratio] 28.29 kg/m2 Norma Virk SET MAKING MACHINE OPERATOR Work Phone: [facility] 09-10-2024 16:37-0500 Body temperature 98.71 [degF] Norma Virk SET MAKING MACHINE OPERATOR Work Phone: [facility] 09-10-2024 16:37-0500 Body weight 77.11 kg Norma Virk SET MAKING MACHINE OPERATOR Work Phone: [facility] 09-10-2024 16:37-0500 Diastolic blood pressure 74 mm[Hg] Norma Virk SET MAKING MACHINE OPERATOR Work Phone: [facility] 09-10-2024 16:37-0500 Heart rate 88 /min Norma Virk SET MAKING MACHINE OPERATOR Work Phone: [facility] 09-10-2024 16:37-0500 Respiratory rate 16 /min Norma Virk SET MAKING MACHINE OPERATOR Work Phone: [facility] 09-10-2024 16:37-0500 SaO2% (BldA) [Mass fraction] 94 % Norma Virk SET MAKING MACHINE OPERATOR Work Phone: [facility] 09-10-2024 16:37-0500 Systolic blood pressure 126 mm[Hg] Norma Virk SET MAKING MACHINE OPERATOR Work Phone: [facility] 07-30-2024 16:06-0400 Body mass index (BMI) [Ratio] 28.96 kg/m2 Norma Virk SET MAKING MACHINE OPERATOR Work Phone: [facility] 07-30-2024 16:06-0400 Body temperature 97.9 [degF] Norma Virk SET MAKING MACHINE OPERATOR Work Phone: [facility] 07-30-2024 16:06-0400 Body weight 78.93 kg Norma Virk SET MAKING MACHINE OPERATOR Work Phone: [facility] 07-30-2024 16:06-0400 Diastolic blood pressure 78 mm[Hg] Norma Virk SET MAKING MACHINE OPERATOR Work Phone: [facility] 07-30-2024 16:06-0400 Heart rate 81 /min Norma Virk SET MAKING MACHINE OPERATOR Work Phone: [facility] 07-30-2024 16:06-0400 SaO2% (BldA) [Mass fraction] 97 % Norma Virk SET MAKING MACHINE OPERATOR Work Phone: [facility] 07-30-2024 16:06-0400 Systolic blood pressure 118 mm[Hg] Norma Virk SET MAKING MACHINE OPERATOR Work Phone: [facility] 06-18-2024 16:37-0400 Body height 165.1 cm Norma Virk SET MAKING MACHINE OPERATOR Work Phone: [facility] 06-18-2024 16:37-0400 Body mass index (BMI) [Ratio] 30.62 kg/m2 Norma Virk SET MAKING MACHINE OPERATOR Work Phone: [facility] 06-18-2024 16:37-0400 Body temperature 98.6 [degF] Norma Virk SET MAKING MACHINE OPERATOR Work Phone: [facility] 06-18-2024 16:37-0400 Body weight 83.46 kg Norma Pricepatrick SET MAKING MACHINE OPERATOR Work Phone: [facility] 06-18-2024 16:37-0400 Diastolic blood pressure 76 mm[Hg] Norma Winchesterzpatrick SET MAKING MACHINE OPERATOR Work Phone: [facility] 06-18-2024 16:37-0400 Heart rate 100 /min Norma Winchesterzpatrick SET MAKING MACHINE OPERATOR Work Phone: [facility] Comment on above: 100% O2 06-18-2024 16:37-0400 Systolic blood pressure 110 mm[Hg] Norma Virk SET MAKING MACHINE OPERATOR Work Phone: [facility] Healthcare Encounters Encounter Date Encounter Type Care Provider Facility Start: 07-16-2025 End: 07-16-2025 ambulatory Nikki Petr DO Work Phone: [facility] Work Phone: Start: 07-16-2025 End: 07-16-2025 Patient encounter procedure Nikki Petr DO -[facility] Work Phone: Start: 07-16-2025 End: 07-16-2025 Patient encounter status Nikki Petr DO [facility] Start: 01-14-2025 End: 01-14-2025 Office outpatient visit [...] Office outpatient visit 10 minutes Norma Virk SET MAKING MACHINE OPERATOR Work Phone: [facility] Comment on above: Class 1 obesity due to excess calories without serious comorbidity with body mass index (BMI) of 30.0 to 30.9 in adult (Primary Dx); Primary hypertension (CMS/HCC); Class 1 obesity due to excess calories without serious comorbidity with body mass index (BMI) of 32.0 to 32.9 in adult Start: 11-05-2024 End: 11-05-2024 Bamboo flowsheet Norma Virk SET MAKING MACHINE OPERATOR Work Phone: [facility] Start: 11-05-2024 End: 11-05-2024 Bamboo flowsheet Norma Virk SET MAKING MACHINE OPERATOR Work Phone: [facility] Start: 11-04-2024 End: 11-04-2024 Refill Norma Virk SET MAKING MACHINE OPERATOR Work Phone: [facility] Comment on above: Primary hypertension (CMS/HCC) Start: 10-30-2024 End: 10-30-2024 Refill Norma Virk SET MAKING MACHINE OPERATOR Work Phone: [facility] Comment on [...] Start: 2024 End: 2024 Refill Norma Virk SET MAKING MACHINE OPERATOR Work Phone: [facility] Comment on above: Other hyperlipidemia (CMS/HCC) Start: 09-17-2024 End: 09-17-2024 Refill Maryuri Simons MA [facility] Comment on above: Other hyperlipidemia (CMS/HCC) (Primary Dx) Start: 09-10-2024 End: 09-10-2024 Office outpatient visit 15 minutes Norma Virk SET MAKING MACHINE OPERATOR Work Phone: [facility] Comment on [...] 09-10-2024 End: 09-10-2024 Bamboo flowsheet Norma Virk SET MAKING MACHINE OPERATOR Work Phone: [facility] Start: 09-10-2024 End: 09-10-2024 Bamboo flowsheet Norma Virk SET MAKING MACHINE OPERATOR Work Phone: [facility] Start: 08-15-2024 End: 08-15-2024 ambulatory Nkechi Saule Facility:[facility] Start: 08-15-2024 End: 08-15-2024 Patient encounter procedure Nkechi Read [facility] Start: 07-30-2024 End: 07-30-2024 Office outpatient visit 10 minutes Norma Virk SET MAKING MACHINE OPERATOR Work Phone: [facility] Comment on [...] 07-30-2024 End: 07-30-2024 Bamboo flowsheet Norma Virk SET MAKING MACHINE OPERATOR Work Phone: [facility] Start: 07-30-2024 End: 07-30-2024 Bamboo flowsheet Norma Virk SET MAKING MACHINE OPERATOR Work Phone: [facility] Start: 07-15-2024 End: 07-16-2024 Refill Cinthia Neves MA [facility] Comment on above: Class 1 obesity due to excess calories without serious comorbidity with body mass index (BMI) of 32.0 to 32.9 in adult Start: 06-18-2024 End: 06-18-2024 Office outpatient visit 15 minutes Norma Virk SET MAKING MACHINE OPERATOR Work Phone: [facility] Comment on [...] 06-18-2024 End: 06-18-2024 Bamboo flowsheet Norma Virk SET MAKING MACHINE OPERATOR Work Phone: [facility] Start: 06-18-2024 End: 06-18-2024 Bamboo flowsheet Norma Virk SET MAKING MACHINE OPERATOR Work Phone: [facility] Start: 05-19-2024 End: 05-19-2024 ambulatory CARDENAS FAWWAD Not Available Start: 04-17-2024 End: 04-17-2024 ambulatory CARDENAS FAWWAD Not Available Start: 03-10-2024 End: 03-10-2024 ambulatory CARDENAS FAWWAD Not Available Start: 08-04-2023 End: 08-04-2023 Patient encounter procedure Nkechi Read [facility] Start: 11-02-2022 End: 11-02-2022 ambulatory Shaikh Addisonwad Facility:[facility] Start: 11-02-2022 End: 11-02-2022 ambulatory MD Shaikh Montoya Work Phone: [facility] Work Phone: Start: 11-02-2022 End: 11-02-2022 Patient encounter procedure MD Shaikh Montoya Work Phone: [facility] Work Phone: Start: 05-12-2022 End: 05-12-2022 Patient encounter procedure Nkechi Read [facility] Start: 12-12-2021 End: 12-13-2021 ambulatory FAJoeWAD Facility:[facility] Start: 09-21-2021 End: 09-22-[address] ANGI PARK Facility:[facility] Start: 11-18-2020 End: 11-21-2020 Patient encounter procedure CARLOS LOPES [facility] Start: 11-18-2020 End: 11-20-2020 Subsequent hospital visit by physician [facility] Mri Scanner [facility] MRI Comment on above: Osteoarthritis of le ft patellofemoral joint Procedures Date Procedure Procedure Detail Performing Clinician Start: 08-18-2024 Mammography Norma Patino martell SET MAKING MACHINE OPERATOR Work Phone: Start: 10-25-2023 Mammography Norma Patino martell SET MAKING MACHINE OPERATOR Work Phone: Start: 11-18-2020 Mri any jt lower ext rem w/o contrast matrl Carlos Lopes Work Phone: Start: 10-22-2020 Colonoscopy Norma F martell SET MAKING MACHINE OPERATOR Work Phone: Arthrotomy of shoulder Teres a Roro Bilateral tubal ligation Ter chay Roro Plan of Treatment Date Care Activity Detail Author Start: 10-22-2030 Screening for malign ant neoplasm of colon [facility] Start: 04-23-2028 Screening for malign ant neoplasm of cervix [facility] Start: 08-18-2025 Screening for malign ant neoplasm of breast Mammogram [facility] Start: 07-17-2025 End: 07-17-2025 Patient encounter procedure 07/17/2025 9:30 AM EDT Office Visit [facility] [address] [place] [address] Bj Alanis MD [address] [place] [address] [facility] Start: 07-16-2025 Patient referral [facility] Work Phone: Start: 01-14-2025 End: 01-14-2025 Patient encounter procedure [facility] Comment on above: Arrived Start: 12-12-2024 End: 12-12-2024 Patient encounter procedure 12/12/2024 11:15 AM EST Office Visit [facility] [address] [place] [address] Bj Alanis MD [address] [place] [address] Arrived [facility] Comment on above: Arrived Start: 12-10-2024 End: 12-10-2024 Patient encounter procedure 12/10/2024 4:00 PM EST Office Visit [facility] [address] [place] [address] Norma Virk, SET MAKING MACHINE OPERATOR [address] [place] [address] [facility] Start: 11-05-2024 End: 11-05-2024 Patient encounter procedure 11/05/2024 4:00 PM EST Office Visit [facility] [address] [place] [address] Norma Virk, SET MAKING MACHINE OPERATOR [address] [place] [address] [facility] Start: 11-04-2024 End: 11-04-2024 Patient encounter procedure 11/04/2024 4:00 PM EST Office Visit [facility] [address] [place] [address] Norma Virk, SET MAKING MACHINE OPERATOR [address] [place] [address] [facility] Start: 10-25-2024 Screening for malign ant neoplasm of breast Mammogram [facility] Start: 09-10-2024 End: 09-10-2024 Patient encounter procedure [...] procedure 07/16/2024 4:30 PM EDT Office Visit [facility] [address] [place] [address] Norma Virk, SET MAKING MACHINE OPERATOR [address] [place] [address] [facility] Start: 06-22-2024 Influenza vaccination Influenza Vacc ine (#1) [facility] Start: 06-18-2024 End: 06-18-2024 Patient encounter procedure 06/18/2024 4:30 PM EDT Office Visit [facility] [address] [place] [address] Norma Virk, SET MAKING MACHINE OPERATOR [address] [place] [address] Primary hypertension (CMS/HCC) (Primary Dx); Other hyperlipidemia (CMS/HCC); Class 1 obesity due to excess calories without serious comorbidity with body mass index (BMI) of 30.0 to 30.9 in adult [facility] Comment on above: Primary hypertension (CMS/HCC) (Primary Dx); Other hyperlipidemia (CMS/HCC); Class 1 obesity due to excess calories without serious comorbidity with body mass index (BMI) of 30.0 to 30.9 in adult Start: 06-22-2020 Influenza vaccination Flu vaccine (# 1) [place], [place] Start: 2018 Screening for malign ant neoplasm of breast Breast cancer screen [place], [place] Start: 2018 Screening for malign ant neoplasm of colon Colon cancer screen colonoscopy [place], [place] Start: 2018 Shingles Vaccine (1 of 2) Shingles Vaccine (1 of 2) [place] Start: 2008 Lipid panel Lipid screen [place], [place] Start: 1989 Screening for malign ant neoplasm of cervix [facility] Start: 1987 DTaP/Tdap/Td vaccine (1 - Tdap) DTaP/Tdap/Td vaccine (1 - Tdap) [place], [place] Start: 1983 HIV screening [facility] [place] Start: 1968 Hepatitis C screening Hepatitis C sc reen [place], [place] Start: 1968 Screening for malign ant neoplasm of colon [facility] Comprehensive metabo lic 2000 panel - Serum or Plasma Comprehensive metabolic panel Lab Routine Primary hypertension (CMS/HCC) Ordered: 09/10/2024 [facility] Work Phone: Comment on above: Ordered: 09/10/2024 Comprehensive metabo lic 1999 panel - Serum or Plasma [facility] Patient referral [facility] Work Phone: [facility] Immunizations Immunization Date Immunization Notes Care Provider Fa cili 09-10-2024 influenza, seasonal, injectable, preservative free Maryuri Simons MA [facility] 09-29-2022 influenza, injectabl e, quadrivalent, preservative free Norma Virk SET MAKING MACHINE OPERATOR Work Phone: [facility] 09-29-2022 influenza virus vaccine, unspecified formulation Norma Virk SET MAKING MACHINE OPERATOR Work Phone: [facility] 10-24-2021 influenza virus vaccine, unspecified formulation Nikki Petr DO Work Phone: [facility] 09-05-2019 diphtheria, tetanus toxoids and acellular pertussis vaccine, unspecified formulation Nikki Petr DO Work Phone: [facility] Payers Date Payer Category Payer Self-pay 2022 Unknown [id number] 2019 [facility] [id number] 2019 Unknown BCBS BCBS [id number] 2019-Present [phone] [address] [place] [address] [id number] 1968 Unknown [id number] [id number] 9.2.173 1968 Unknown [id number] [id number] 9.2.593 1968 Unknown [id number] 2.16.840.1.396810.3.57 9.2.593 1968 Unknown [id number] [id number] 9.2.593 1968 Unknown [id number] 2.16.840.1.998651.3.57 9.2.727 1968 Unknown [id number] 2.16.840.1.257168.3.57 9.2.1259 1968 Unknown [id number] 2.16.840.1.342269.3.57 9.2.1259 1968 Unknown [id number] 2.16.840.1.568651.3.57 9.2.1259 1968 Unknown [id number] 2.16.840.1.415857.3.57 9.2.1259 1968 Unknown [id number] 2.16.840.1.439553.3.57 9.2.1259 1968 Unknown [id number] 2.16.840.1.292514.3.57 9.2.1259 1968 Unknown [id number] 2.16.840.1.718923.3.57 9.2.1259 1968 Unknown [id number] 2.16.840.1.444578.3.57 9.2.1259 1968 Unknown [id number] 2.16.840.1.237561.3.57 9.2.1259 1959 Unknown [id number] [id number] Unknown [id number] [id number] 9.2.531 Social History Date Type Detail Facility Tobacco smoking stat [facility] Unknown if ever smoked [place], [place] Start: 1970 Sex Assigned At Not on file [place] Exposure to SARS-CoV -2 (event) Not sure [place] Tobacco Current, Cigaret andrew, 3 per day. 15 year(s). Previous treatment: Medications. Ready to change: No. Household tobacco concerns: No. [facility] Start: 06-11-2024 End: 06-18-2024 Sex Assigned At Female [facility] Start: 1970 Sex Assigned At Female [facility] Tobacco smoking status No Smokin g Status Entered [facility] Start: 03-10-2024 Tobacco smoking status [...] to any clubs or organizations such as scientology groups, unions, fraternal or athletic groups, or [...] Comment OCCASSIONAL [facility] Tobacco smoking stat [facility] Unknown if ever smoked [facility] Work Phone: Sex Female (finding) [facility] Clinical Notes 06-18-2024 to 07-16-2025 Bj Alanis MD - 01/14/2025 4:52 PM Susan Alanis MD - 01/14/2025 4:51 PM Susna Alanis MD - 01/14/2025 3:45 PM Susan Alanis MD - 12/12/2024 11:45 AM ESTPatient Instructions Note Date & Type Note Facility 07-16-2025 Hospital Discharge instructions Ambulatory OrdersReferral to Orthopedic Surgery Time Frame: 07/16/25, Location: None Selected [facility] Work Phone: 01-14-2025 History of Present illness [...] 37.5 MG tablet documented in this encounter [facility] 12-12-2024 History of Present illness [...] 37.5 MG tablet documented in this encounter [facility] 11-05-2024 History of Present illness [...] several lifestyle changes. Pt meets qualifications of [facility] 4731-08-25 for weight loss. BMI>30 or [...] (Start on 11/19/2024) documented in this encounter [facility] 10-06-2024 Telephone encounter Note MALIK:09/10/2024 NOV: [facility] 10-06-2024 Miscellaneous Notes MALIK:09/10/2024 NOV: documented in this encounter [facility] 09-17-2024 Telephone encounter Note MALIK:09/10/2024 NOV:11/04/2024 [facility] 09-17-2024 Miscellaneous Notes MALIK:09/10/2024 NOV:11/04/2024 documented in this encounter [facility] 09-10-2024 History of Present illness [...] 32.9 in adult documented in this encounter [facility] 07-30-2024 History of Present illness [...] several lifestyle changes. Pt meets qualifications of [facility] 4731-08-25 for weight loss. BMI>30 or [...] if no contraindications documented in this encounter [facility] 07-30-2024 Instructions Norma Virk NP - 07/30/2024 4:00 PM EDT Keep up the good work!! Notify office with any symptoms of chest pain, dyspnea, heart palpitations, or any anxiety symptoms. F/U in 4 weeks to document weight loss. Increase physical activity as tolerated, and lower caloric intake to 1600 calories daily if no contraindications\ documented in this encounter [facility] 06-18-2024 History of Present illness [...] 37.5 MG tablet Associated Problem(s): Other hyperlipidemia ([facility]/HCC) Simvastatin 20mg; Most recent Lipid panel WNL. [...] Continue current regimen. documented in this encounter [facility] 06-18-2024 Instructions Norma Virk NP - 06/18/2024 4:30 PM EDT Keep up the great work!!!!! Blood pressure WNL. Notify office with any symptoms of chest pain, dyspnea, heart palpitations, or any anxiety symptoms. F/U in 4 weeks to document weight loss. Increase physical activity as tolerated, and lower caloric intake to 1600 calories daily if no contraindications documented in this encounter [facility] Evaluation + Plan note No data available for this section [facility] Evaluation note No assessment inform ation available [facility] Work Phone: Evaluation note Diagnosis Class 1 obesity due to excess calories without serious comorbidity with body mass index (BMI) of 30.0 to 30.9 in adult- Primary Class 1 obesity due to excess calories without serious comorbidity with body mass index (BMI) of 32.0 to 32.9 in adult documented in this encounter [facility] HealthcareEvaluation note* Diagnosis Primary hypertension (CMS/HCC)- Primary [...] 32.9 in adult documented in this encounter [facility] HealthcareEvaluation note* Diagnosis Primary hypertension (CMS/HCC)- Primary Unspecified essential hypertension Other hyperlipidemia (CMS/HCC) Class 1 obesity due to excess calories without serious comorbidity with body mass index (BMI) of 30.0 to 30.9 in adult Class 1 obesity due to excess calories without serious comorbidity with body mass index (BMI) of 32.0 to 32.9 in adult documented in this encounter [facility] HealthcareEvaluation note* Diagnosis Class 1 obesity due to excess calories without serious comorbidity with body mass index (BMI) of 32.0 to 32.9 in adult documented in this encounter [facility] HealthcareEvaluation note* Diagnosis Primary hypertension (CMS/HCC)- [...] Unspecified essential hypertension documented in this encounter [facility] HealthcareEvaluation note* Diagnosis Primary hypertension (CMS/HCC)- [...] 32.9 in adult documented in this encounter [facility] HealthcareEvaluation note* Diagnosis Primary hypertension (CMS/HCC)- [...] 30.9 in adult documented in this encounter [facility] HealthcareEvaluation note* Diagnosis Primary hypertension (CMS/HCC)- [...] examination in adult noneactive June 232024 2:24pm [facility] Work Phone: Hospital Discharge instructions No data available for this section [facility] No data available for this section [facility] Reason for Referral Status Reason Specialty Diagnoses / Procedures Re ferred By Contact Referred To Contact Closed Radiology Diagnoses Osteoarthritis of left patellofemoral joint Procedures MRI KNEE LEFT WO CONTRAST Carlos Lopes [address] [place] [address] [place] [address] [facility] Mri [address] [place] [address] Assessments Diagnosis Osteoarthritis of left patellofemoral joint [...] 16 2:24pm Encounter for wellness examination in [facility] July 16, 2025 2:24pm Additional Source Comments Reason for Visit (unrecogniz ed section and content) Status Reason Specialty Diagnoses / Procedures Re ferred By Contact Referred To Contact Closed Radiology Diagnoses Osteoarthritis of left patellofemoral joint Procedures MRI KNEE LEFT WO CONTRAST Carlos Lopes [address] [place] [address] [place] [address] [address] Reason Comments Follow-up adipex Reason Comments Follow-up [...] DATE CREATED AUTHOR AUTHOR'S ORGANIZ ATION 12/04/2020 [facility] DATE CREATED AUTHOR AUTHOR'S ORGANIZ ATION 12/16/2021 [facility] DATE CREATED AUTHOR AUTHOR'S ORGANIZ ATION 10/31/2022 [facility] dical Specialist DATE CREATED AUTHOR AUTHOR'S ORGANIZ ATION 11/03/2022 [facility] DATE CREATED AUTHOR AUTHOR'S ORGANIZ ATION 08/24/2024 [facility] DATE CREATED AUTHOR AUTHOR'S ORGANIZ ATION 01/15/2025 [facility] dical Specialists EPIC Care Team (unrecognized sect ion and content) Team Status: Inactive Member Role Status Dates Shaikh Jan MD Primary Care Provider, Attending Pr mily Active Team Status: Active Member Role Status Dates Shaikh Jan MD Primary Care Provider Active [employer] Relationship Specialty Start Date End Date Shaikh Montoya MD [address] [place] [address] PCP - General Internal Medicine 03/10/24 [employer] Relationship Specialty Start Date End Date Shaikh Montoya MD [address] [place] [address] PCP - General Internal Medicine 03/10/24 [employer] Commissioner Relationship Specialty Start Date End Date Shaikh Montoya MD [address] [place] [address] PCP - General Internal Medicine 03/10/24 [employer] Relationship Specialty Start Date End Date Shaikh Montoya MD [address] [place] [address] PCP - General Internal Medicine 03/10/24 [employer] Commissioner Relationship Specialty Start Date End Date Shaikh Montoya MD [address] [place] [address] PCP - General Internal Medicine 03/10/24 [employer] Relationship Specialty Start Date End Date Shaikh Montoya MD [address] [place] [address] PCP - General Internal Medicine 03/10/24 [employer] Commissioner Relationship Specialty Start Date End Date Shaikh Montoya MD [address] [place] [address] PCP - General Internal Medicine 03/10/24 [employer] Commissioner Relationship Specialty Start Date End Date Shaikh Montoya MD [address] [place] [address] PCP - General Internal Medicine 03/10/24 [employer] Commissioner Relationship Specialty Start Date End Date Shaikh Montoya MD [address] [place] [address] PCP - General Internal Medicine 03/10/24 [employer] Commissioner Relationship Specialty Start Date End Date Shaikh Montoya MD [address] [place] [address] PCP - General Internal Medicine 03/10/24 [employer] Commissioner Relationship Specialty Start Date End Date Bj Alanis MD [address] [place] [address] PCP - General Family Medicine 12/08/24 Norma Virk NP [address] [place] [address] Nurse Practitioner Family Medicine 12/08/24 [employer] Commissioner Relationship Specialty Start Date End Date Bj Alanis MD [address] [place] [address] PCP - General Family Medicine 12/08/24 Norma Virk NP [address] [place] [address] Nurse Practitioner Family Medicine 12/08/24 [employer] Commissioner Relationship Specialty Start Date End Date Bj Alanis MD [address] [place] [address] PCP - General Family Medicine 12/08/24 Norma Virk NP [address] [place] [address] Nurse Practitioner Family Medicine 12/08/24 [employer] Commissioner Relationship Specialty Start Date End Date Bj Alanis MD [address] [place] [address] PCP - General Family Medicine 12/08/24 Norma Virk NP [address] [place] [address] Nurse Practitioner Family Medicine 12/08/24 Team Status: [...] BE BASED ON THE PRIMARY CLINICAL RECORDS. [facility] [employer] provides no warranty or guarantee of the accuracy or completeness of information in this document.
--- OUTSIDE RECORDS SUMMARY | 2025-08-06 07:41 | XMS_ITS | Encounter Summary ---
Author Organization [facility] Address [address] [place] [address] Care Team Providers Care Fly Rail Operator Name Role Phone Shaikh PAYTON Montoya Primary Care Provider [phone] Bj Smith MD Primary Care Provider [phone] Norma Virk WHEEL TRUER Unavailable [phone] Encounter Details Date Type Department Care Team (Late st Contact Info) Description 09/15/2024 Abstract [facility] [address] [place] [address] Norma Virk NP Social History Tobacco Use Types Packs/Day Years Used Date Smoking Tobacco: Former Cigarettes Passive Smoke Exposure: Past Smokeless Tobacco: Never Alcohol Use Standard Drinks/Week Comments Yes 0 [...] 06/11/2024 How often do you attend chur or bahai services? More than 4 times per year 06/11/2024 Do you belong to any clubs o r organizations such as synagogue groups, unions, fraternal or athletic groups, or [...] Recorded Patient Health Questionnaire-2 Score 0 06/18/2024 [facility] Occupat ional [facility] - Occupational Stress Questionnaire Answer Date Recorded [...] the money to buy more. Never true 06/11/20 24 Within the past 12 months, t [...] any time in the past 12 m ont, were you homeless or living in a group home (including now)? No 06/11/2024 Comments No Sex and Gender Information Value Date Recorded Sex Assigned at Not on file Legal Sex Female 9:49 PM EDT Gender Identity Not on file Sexual Orientation Not on file documented as of this encounter Plan of Treatment Not on file documented as of this encounter Visit Diagnoses Not on filedocumented in this encounter Care Teams Fly Rail Operator Relationship Specialty Start Date End Date Shaikh Montoya MD PCP - General Internal Medicine 03/10/24 12/07/24 Bj Smith MD PCP - General Family Medicine 12/08/24 Norma Virk NP Nurse Practitioner Family Medicine 12/08/24 documented as of this encounter
--- OUTSIDE RECORDS SUMMARY | 2025-08-06 07:41 | XMS_ITS | Encounter Summary ---
Author Organization [facility] Address [address] [place] [address] Care Team Providers Care Sharepoint Designer Developer Name Role Phone Shaikh PAYTON Montoya Primary Care Provider [phone] Bj Smith MD Primary Care Provider [phone] Norma Virk CHILDREN COUNSELOR Unavailable [phone] Encounter Details Date Type Department Care Team (Late st Contact Info) Description 08/15/2024 Clinisync Result Encounter [facility] External Department Unsolicited Provider, Generic External Data Social History Tobacco Use Types Packs/Day Years [...] often do you attend chur ch or evangelical services? More than 4 times per year 06/11/2024 Do you belong to any clubs o r organizations such as mormonism groups, unions, fraternal or athletic groups, or [...] Recorded Patient Health Questionnaire-2 Score 0 06/18/2024 [facility] ional [facility] - Occupational Stress [...] any time in the past [address] [facility], were you homeless or living in a longterm (including now)? No 06/11/2024 Comments Unknown Sex and Gender Information Value Date Recorded Sex Assigned at Not on file Legal Sex Female 9:49 PM EDT Gender Identity Not on file Sexual Orientation Not on file documented as of this encounter Plan of Treatment Not on file documented as of this encounter Procedures Procedure Name Priority Date/Time Associated Diagnosis Comments MA MAMM SCREEN W/CAD IF PERF AND 3D ZOILA 08/15/2024 7:27 AM EDT documented in this encounter Results * MA MAMM SCREEN W/CAD IF PERF AND 3D ZOILA (08/15/2024 7:27 AM EDT) Anatomical Region Laterality Modality Other 08/15/2024 7:27 AM EDT Narrative 08/16/2024 9:06 AM EDT Exam Date/Time: 08/15/2024 08:48 EDT Reason for Exam: Z12.31 Report IMPRESSION: BIRADS 1 NEGATIVE, NORMAL INTERVAL FOLLOW-UP Follow-up: 12 MONTH RECALL Density: Category B - Scattered areas of fibroglandular density. Vascular calcifications: Absent. EXAM: MA Mamm Screen w/CAD if perf and 3D Zoila DATE: 08/15/2024 7:27 AM CLINICAL HISTORY: Z12.31. [...] VERY IMPORTANT TO YOUR HEALTH. THE CURRENT [employer] AND NATIONAL COMPREHENSIVE CANCER [...] Dev Denis MD Transcribed by: LIZANDRO Technologist: [facility] Assessment: BI-RADS Category 1-Negative Recommendation: Normal interval follow-up Procedure Note Radiology, Radiologist, - 08/16/2024 Exam Date/Time: 08/15/2024 08:48 EDT Reason for Exam: Z12.31 Report IMPRESSION: BIRADS 1 NEGATIVE, NORMAL INTERVAL FOLLOW-UP Follow-up: 12 MONTH RECALL Density: Category B - Scattered areas of fibroglandular density. Vascular calcifications: Absent. EXAM: MA Mamm Screen w/CAD if perf and 3D Zoila DATE: 08/15/2024 7:27 AM CLINICAL HISTORY: Z12.31. COMPARISONS: 08/04/2023, 05/12/2022, 12/09/2020, and 08/11/2019. TECHNIQUE: Routine full-field digital mammograms and 3D breasttomosynthesis were obtained of both breasts. FINDINGS: There are no developing densities, suspicious microcalcifications, orareas of architectural distortion identified on the current study. No significant changes are identified from the prior studies, givendifferences in technique and positioning. Dense Breast: No. CAD analysis was performed and used in the interpretation. Board Certified Radiologists. Accredited by the ACR and FDA. MAMMOGRAPHY IS VERY IMPORTANT TO YOUR HEALTH. THE CURRENT [employer] OF RADIOLOGY AND NATIONAL [facility] NETWORK GUIDELINES RECOMMENDS ANNUAL MAMMOGRAPHY BEGINNING AT AGE 40. THIS FACILITY UTILIZES A REMINDER SYSTEM TO ENSURE ALL PATIENTS RECEIVEREMINDER NOTIFICATIONS AT THE APPROPRIATE TIME BASED ON THE RECOMMENDATIONS OF THISEXAM. Report Ordering Provider: Nkechi Read FINAL REPORT Dictated: 08/16/2024 9:02 am Dev Denis MD Signed (Electronic Signature): 08/16/2024 9:02 am Signed by: eDv Denis MD Transcribed by: LIZANDRO Technologist: [facility] Assessment: BI-RADS Category 1-Negative Recommendation: Normal interval follow-up us Generic External Data Provider [facility] Final Result documented in this encounter Visit Diagnoses Not on filedocumented in this encounter Care Teams Sharepoint Designer Developer Relationship Specialty Start Date End Date Shaikh Montoya MD PCP - General Internal Medicine 03/10/24 12/07/24 Bj Smith MD PCP - General Family Medicine 12/08/24 Norma Virk NP Nurse Practitioner Family Medicine 12/08/24 documented as of this encounter
--- OUTSIDE RECORDS SUMMARY | 2025-08-06 07:41 | XMS_ITS | Encounter Summary ---
Author Organization [facility] Address [address] [place] [address] Care Team Providers Care Client Support Coordinator Name Role Phone Shaikh PAYTON Montoya Primary Care Provider [phone] Bj Smith MD Primary Care Provider [phone] Norma Virk HIGH SCHOOL FRENCH TEACHER Unavailable [phone] Encounter Details Date Type Department Care Team (Late st Contact Info) Description 08/18/2024 Orders Only [facility] [address] [place] [id number] Nkechi Read MD [address] [place] [address] [address] [place] [address] Social History Tobacco Use Types [...] week 06/11/2024 How often do you attend [facility] or holiness services? More than 4 times per year 06/11/2024 Do you belong to any clubs o r organizations such as mu-ism groups, unions, fraternal or athletic groups, or [...] Recorded Patient Health Questionnaire-2 Score 0 06/18/2024 [facility] Occupat ional [facility] - Occupational Stress Questionnaire Answer Date Recorded [...] any time in the past 12 m [facility], were you homeless or living in a custodial (including now)? No 06/11/2024 Comments Unknown Sex and Gender Information Value Date Recorded Sex Assigned at Not on file Legal Sex Female 9:49 PM EDT Gender Identity Not on file Sexual Orientation Not on file documented as of this encounter Plan of Treatment Not on file documented as of this encounter Procedures Procedure Name Priority Date/Time Associated Diagnosis Comments MAMMOGRAM, BILATERAL, SCREEN:* Routine 08/18/2024 2:50 PM EDT documented in this encounter Results * MAMMOGRAM, BILATERAL, SCREEN:* (08/18/2024 2:50 PM EDT) Anatomical Region Laterality Modality Radiographic Marcelina ging us Nkechi Read MD IMG XR PROCEDURES Final Result documented in this encounter Visit Diagnoses Not on filedocumented in this encounter Care Teams Client Support Coordinator Relationship Specialty Start Date End Date Shaikh Montoya MD PCP - General Internal Medicine 03/10/24 12/07/24 Bj Smith MD PCP - General Family Medicine 12/08/24 Norma Virk NP Nurse Practitioner Family Medicine 12/08/24 documented as of this encounter
== END 2025-08-06 07:39 | disposition home or self-care (01) ==
LOC: RAD 07:38
PROVIDERS: PCP Family Medicine; Visit Provider Physician Assistant
DX: M67.432 Ganglion, left wrist (principal); M25.512 Pain in left shoulder
CPT/HCPCS: 73030; 73110

== ENCOUNTER 2025-08-12 16:49 | Outpatient (RCR) | payer BC, SELFPAY | END 2025-09-17 09:38 | disposition home or self-care (01) | LOC: PT 16:49 | PROVIDERS: PCP Family Medicine; Visit Provider Physician Assistant | DX: M25.812 Other specified joint disorders, left shoulder (principal) | CPT/HCPCS: 97110; 97112; 97162 ==

== ENCOUNTER 2025-10-04 21:41 | Emergency (ER) | payer BC, SELFPAY ==
[2025-10-04 21:42] VITALS: BP 92/70; PULSE 78; O2SAT 97; BMI 27.4
--- NOTE | 2025-10-04 21:49 | ECG_ITS ---
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 Measurements Intervals Thicket Rate: 70 P: 56 MT: 222 QRS: 77 QRSD: 100 T: 71 QT: 422 QTc: 443 Interpretive Statements 1100 Sinus rhythm 2231 First degree AV block 9150 abnormal ECG Compared to ECG 08/29/2024 02:17:56 T-wave abnormality no longer present Electronically Signed On 10-04-2025 22:56:44 EST by ANGEL KNAPP M.D.
--- NOTE | 2025-10-04 21:52 | ED.GENADUL1 ---
HPI HPI - General Adult General Chief complaint: Fall Stated complaint: FALL Time Seen by Provider: 10/04/25 21:47 Source: patient Mode of arrival: ambulance Limitations: other Limitations comment: alcohol intoxication History of Present Illness HPI narrative: Patient is a 55-year-old female, not on anticoagulation, presenting to the emergency department from her home for concerns of a fall and a head injury. Patient states she was drinking alcohol earlier tonight. She was sitting in a particular home when she fell and hit the back of her head. She is unsure if she lost consciousness. She denies nausea or vomiting. Other than pain in the back of her head, she is asymptomatic. She denies chest pain, shortness of breath, nausea, vomiting, abdominal pain, or any other symptoms. Related Data Home Medications ?Medication ?Instructions ?Recorded ?Confirmed losartan 100 1 tab PO DAILY 08/29/24 10/04/25 mg-hydrochlorothiazide 25 mg tablet simvastatin 20 mg tablet 20 mg PO DAILY 08/29/24 10/04/25 Allergies Allergy/AdvReac Type Severity Reaction Status Date / Time codeine Allergy Intermediate Dizziness Verified 08/29/24 02:19 Opioid HPI Opioid Management Most Recent Opioid Data: Last Pain Scale 7 08/29/24, 03:05 Review of Systems ROS Status of ROS 10 or more systems reviewed and unremarkable except as noted in history and below PFSH PFSH Social History Little interest or pleasure in doing things: not at all Feeling down, depressed, or hopeless: not at all Exam Narrative Exam Narrative: CONSTITUTIONAL: Slurring her speech and smells of EtOH, oriented x 3, answering questions and following commands appropriately SKIN: Was warm and dry. HEAD: There is a small, superficial posterior scalp hematoma with a 2 cm linear laceration with no active bleeding. EYES: Sclerae white. PERRLA. No raccoon eyes. EARS, NOSE, THROAT: Moist oral mucosa. No Gonzalez sign. No tongue lacerations. RESPIRATORY: Clear to auscultation bilaterally, no wheezes, crackles, or stridor, no use of accessory muscles CARDIOVASCULAR: Normal rate and regular rhythm. There is no S3, S4, murmur, rub. GASTROINTESTINAL: Abdomen is soft, nontender, and nondistended. MUSCULOSKELETAL: No midline C/T/L-spine tenderness. No tenderness to palpation throughout all 4 extremities. NEUROLOGIC: Patient is awake and alert. Moving all extremities equally. Facies were symmetrical. Constitutional Vital Signs, click to edit/add: Last Vital Signs Pulse 78 10/04/25 21:42 Resp 18 10/04/25 21:42 BP 92/70 10/04/25 21:42 Pulse Ox 97 10/04/25 21:42 O2 Del Method Room Air 10/04/25 21:42 Course Vital Signs Vital signs: Vital Signs Pulse Rate 78 10/04/25 21:42 Respiratory Rate 18 10/04/25 21:42 Blood Pressure 92/70 10/04/25 21:42 Pulse Oximetry 97 10/04/25 21:42 Oxygen Delivery Method Room Air 10/04/25 21:42 Pulse Rate 78 10/04/25 21:42 Respiratory Rate 18 10/04/25 21:42 Blood Pressure 92/70 10/04/25 21:42 Pulse Oximetry 97 10/04/25 21:42 Oxygen Delivery Method Room Air 10/04/25 21:42 Medical Decision Making MDM Narrative Medical decision making narrative: Patient is a 55-year-old female presenting to the emergency department for evaluation of a head injury after a fall on EtOH. Her vital signs arrival are within normal limits. She is afebrile and hemodynamically stable. Examination as noted above. Differential diagnosis includes closed head injury, intracranial hemorrhage, syncope, alcohol intoxication, or other electrolyte/metabolic derangement. IV was established and laboratory studies were obtained. CT head/C-spine ordered. 12 Lead EKG: Normal sinus rhythm at a rate of 70. Normal axis. No ST segment elevations. Prolonged HI interval of 222 ms. Final impression: Sinus rhythm with first-degree AV block. No evidence of acute myocardial ischemia. Laboratory studies were unremarkable. No significant electrolyte or metabolic derangement other than hypokalemia which was replaced with oral potassium chloride. No evidence of acute kidney injury. No anemia, leukocytosis, or thrombocytopenia. Troponin nonelevated. CT head independently reviewed/interpreted by myself demonstrated no acute intracranial pathology or hemorrhage. CT C-spine demonstrate no acute osseous abnormalities. Patient's laceration was irrigated with saline and closed with 4 lori. On reevaluation, patient states she feels well and is requesting be discharged home. GCS remains 15. I do believe the patient is stable for discharge. Patient's presentation is most likely consistent with vasovagal syncope, alcohol intoxication, closed head injury.. They were instructed to follow up with her PCP as needed. Return precautions were given including any new or worsening symptoms. She instructed to return to the emergency department 7 days for wound check and staple removal. Patient understands and agrees to the plan. FINAL IMPRESSION: #Acute closed head injury #Acute alcohol intoxication #Acute posterior scalp laceration DISPOSITION: Discharged home CONDITION: Good Lab Data Lab results reviewed: Yes I reviewed the patient's lab results Labs: Lab Results 10/04/25 Range/Units 21:55 WBC 5.8 (4.0-11.0) 10^3/uL RBC 4.30 (4.20-5.40) 10^6/uL Hgb 14.3 (12.0-16.0) g/dL Hct 40.6 (36.0-48.0) % MCV 94.4 (81.0-99.0) fL MCH 33.3 (26.7-34.0) pg MCHC 35.2 (29.9-35.2) g/dL RDW 12.7 (11.0-15.0) % Plt Count 285 (150-450) 10^3/uL MPV 8.4 L (9.5-13.5) fL Neut % (Auto) 45.0 (43.0-75.0) % Lymph % (Auto) 46.4 (20.5-60.0) % [place] % (Auto) 6.2 (1.7-12.0) % Eos % (Auto) 1.9 (0.9-7.0) % Baso % (Auto) 0.3 (0.2-2.0) % Neut # (Auto) 2.6 (1.4-6.5) 10^3/uL Lymph # (Auto) 2.7 (1.2-3.8) 10^3/uL [place] # (Auto) 0.4 (0.3-0.8) 10^3/uL Eos # (Auto) 0.1 (0.0-0.7) 10^3/uL Baso # (Auto) 0.0 (0.0-0.1) 10^3/uL Abs Immat Gran (auto) 0.01 (0.00-0.03) 10^3/uL Imm/Tot Granulo (auto) 0.2 (0.0-0.5) % Sodium 142 (136-145) mmol/L Potassium 2.8 L* (3.5-5.1) mmol/L Chloride 101 (98-107) mmol/L Carbon Dioxide 27.9 (21.0-32.0) mmol/L Anion Gap 15.9 BUN 9.0 (7.0-18.0) mg/dL Creatinine 0.67 (0.55-1.02) mg/dL Est GFR ( Amer) >60 (>=60 mL/min/1.73m^2) Est GFR (Non-Af Amer) >60 (>=60 mL/min/1.73m^2) BUN/Creatinine Ratio 13.4 Glucose 117 H (74-106) mg/dL Calcium 9.4 (8.5-10.1) mg/dL Troponin I High Sens 5.7 (4.0-51.3) pg/mL Imaging Data CT scan - head: Attestation: I personally reviewed and interpreted this imaging study as follows: ECG Data Attestation: I personally reviewed and interpreted this ECG as follows: Discharge Plan Discharge Chief Complaint: Fall Clinical Impression: Closed head injury with brief loss of consciousness Patient Disposition: Home, Self-Care Time of Disposition Decision: 23:25 Condition: Good Mode of Transportation: Private Vehicle Prescriptions / Home Meds: No Action losartan-hydrochlorothiazide 100-25 mg tablet 1 tab PO DAILY simvastatin 20 mg tablet 20 mg PO DAILY Print Language: Cambodian Instructions: Concussion (ED), Staple Care (ED) Additional Instructions: Your potassium was low today. Make sure you follow up with PCP about this. Referrals: Nikki Humphreys DO [Primary Care Provider, Hospitalist] - 1 week Discharge Date/Time: 10/04/25 23:39 Procedures ED Laceration Laceration Laceration 1: Site: scalp Side (if applicable): right Size (cm): 2 Description: linear Depth: simple, single layer Skin layer closed with: other (Lori x 4)
[2025-10-04 22:02] LABS: Hematocrit 40.6 % (36.0-48.0); Hemoglobin 14.3 g/dL (12.0-16.0); Immature Granulocytes Abs Auto 0.01 10^3/uL (0.00-0.03); Immature Granulocytes Pct Auto 0.2 % (0.0-0.5); Lymphocytes Absolute Auto 2.7 10^3/uL (1.2-3.8); Mean Corpuscular HGB Conc 35.2 g/dL (29.9-35.2); Mean Corpuscular Hemoglobin 33.3 pg (26.7-34.0); Mean Corpuscular Volume 94.4 fL (81.0-99.0); Platelet Count 285 10^3/uL (150-450); Red Blood Count 4.30 10^6/uL (4.20-5.40); White Blood Count 5.8 10^3/uL (4.0-11.0)
--- OUTSIDE RECORDS SUMMARY | 2025-10-04 22:14 | XMS_ITS | Clinical Summary ---
Author Organization [facility] Address [address] [place] [address] Care Team Providers Care Career Development Associate Name Role Phone Bj Smith MD Primary Care Provider [phone] Norma Virk NP Unavailable [phone] Allergies Active AllergyReactionsCriticalityNoted DateCommentsCodeineDizziness,Other, Vbbyhhq4303/10/2024 Medications MedicationSigDispense QuantityRefillsLast FilledStart DateEnd DateStatus losartan-hydroCHLOROthiazide (Hyzaar) 50-12.5 MG tablet Indications:Primary hypertensionTake 1 tablet by mouth Daily 90 tablet 5Active phentermine (Adipex-P) 37.5 MG tablet Indications:Overweight (BMI 25.0-29.9)Take 1 tablet (37.5 mg) by mouth in the morning. Take before meals. 30 tablet 5Active simvastatin (Zocor) 20 MG tablet Indications:Other hyperlipidemiaTAKE 1 TABLET BY MOUTH AT BEDTIME 90 tablet 5Active Active Problems ProblemNoted DateDiagnosed DateOther ddmsgsymnlpaox25/20/2024 Assessment & Plan (06/18/2024 1:21 PM EDT): Simvastatin 20mg; Most recent Lipid panel WNL. Denies myalgias; Continue current regimen. Assessment & Plan (03/10/2024 5:07 PM EDT): On simvastatin 20 mg. Check lipid panel Cw same for now. Primary ccyyxixwftri86/20/2024 Assessment & Plan (01/14/2025 4:51 PM EDT): [...] BP. C/w losartan-hydrochlorothiazide Check labs Overweight (BMI 25.0-29.9)03/10/2024 Assessment & Plan (01/14/2025 4:52 PM EDT): [...] prescription for 0.5 mg/week dose. Resolved Problems ProblemNoted DateDiagnosed DateResolved DateSensation of fullness in right ear / Assessment & Plan (03/10/2024 5:09 PM EDT): Intermittent with ears popping. No abnormal exam finding. No evidence of infection Monitor as clinically indicated Immunizations ImmunizationAdministration DatesNext DueInfluenza, injectable, quadrivalent, preservative free09/29/2022Influenza, seasonal, injectable, preservative free 09/10/2024 Family History Medical HistoryRelationNameCommentsHTNFatherHeart diseaseFatherStrokeFatherHeart diseaseMotherRelationNameStatusCommentsFatherAliveMotherAlive Social History Tobacco UseTypesPacks/DayYears UsedDateSmoking Tobacco: FormerCigarettesPassive Smoke Exposure: PastSmokeless Tobacco: Never Tobacco Cessation:Counseling Given: Not Answered Alcohol UseStandard Drinks/WeekCommentsYes0 (1 standard drink = 0.6 oz pure alcohol)[id number] Health LiteracyAnswerDate RecordedHow often do you need to have someone help you when you read instructions, pamphlets, or other written material from your doctor or pharmacy?Never06/11/2024Social Connection and Isolation PanelAnswerDate RecordedIn a typical week, how many times do you talk on the phone with family, friends, or neighbors?Three times a week06/11/2024How often do you get together with friends or relatives?More than three times a week 06/11/2024How often do you attend pentecostal or cheondoism services?More than 4 times per year06/11/2024o you belong to any clubs or organizations such as pentecostal groups, unions, [employer] or athletic groups, or school groups?Yes06/11/2024How often do you attend meetings of the clubs or organizations you belong to?1 to 4 times per year06/11/2024re you , , , , never , or living with a partner?Stcazhl5206/11/2024UDIT-CAnswerDate RecordedQ1: How often do you have a drink containing alcohol?2-3 times a week06/11/2024Q2: How many drinks containing alcohol do you have on a typical day when you are drinking?1 or Q3: How often do you have six or more drinks on one occasion?Less than jsrqibx1306/11/2024Overall Financial Resource Strain (CARDIA) AnswerDate RecordedHow hard is it for you to pay for the very basics like food, housing, medical care, and heating?Not hard at all06/11/2024HQ-2AnswerDate RecordedPatient Health Questionnaire-2 [facility]pftx982[facility] [place] [facility] - Occupational Stress QuestionnaireAnswerDate RecordedDo you feel stress - tense, restless, nervous, or anxious, or unable to sleep at night because yourmind is troubled all the time - these days?Not at all06/11/2024 Exercise Vital SignAnswerDate RecordedOn average, how many days per week do you engage in moderate to strenuous exercise (like a brisk walk)?6 days06/11/2024On average, how many minutes do you engage in exercise at this level?30 min 06/11/2024Hunger Vital SignAnswerDate RecordedWithin the past 12 months, you worried that your food would run out before you got the money to buymore.Never true06/11/2024Within the past 12 months, the food you bought just didn't last and you didn't have money to get more.Never true06/11/2024RAPARE - TransportationAnswerDate RecordedIn the past 12 months, has lack of transportation kept you from medical appointments or from getting medications?No 06/11/2024In the past 12 months, has lack of transportation kept you from meetings, work, or from getting things needed for daily living?No06/11/2024 Housing Stability Vital SignAnswerDate RecordedIn the last 12 months, was there a time when you were not able to pay the mortgage or rent on time?No06/11/2024In the past 12 months, how many times have you moved where you were living?0 06/11/2024t any time in the past 12 months, were you homeless or living in a long term (including now)?No06/11/2024CommentsNoSex and Gender Information ValueDate RecordedSex Assigned at BirthNot on fileLegal MgxDjzqxs64/15/2023 9:49 PM EDTGender IdentityNot on fileSexual OrientationNot on file Last Filed Vital Signs Vital SignReadingTime TakenCommentsBlood Xdlbcjoy125/7603 3:49 PM EDT Jmcuj8488 3:49 PM TOXPvvhmktaybz30.4 ??C (97.5 ??F)01/14/2025 3:49 PM EDTRespiratory Pmhv775601/14/2025 3:49 PM EDTOxygen Ydtfdxhrnd23%01/14/2025 3:49 PM EDTInhaled Oxygen Concentration--Ztxrzd25 kg (161 lb)01/14/2025 3:49 PM EDT Ynjdwt944.1 cm (5' 5 )01/14/2025 3:49 PM EDTBody Mass Index26.7901/14/2025 3:49 PM EDT Plan of Treatment Not on file Insurance Care Teams Team MemberRelationshipSpecialtyStart DateEnd Date Bj Smtih MD PCP - GeneralFamily Medicine12/08/24 Norma Virk NP Nurse PractitionerFamily Medicine12/08/24
--- OUTSIDE RECORDS SUMMARY | 2025-10-04 22:14 | XMS_ITS | Clinical Summary ---
Author Organization [facility] Address [address] [place] [address] Phone Care Team Providers Care Document Improvement Specialist Name Role Phone Unavailable Primary Care Provider Unavailabl e Social History Tobacco UseTypesPacks/DayYears UsedDateSmoking Tobacco: Never Assessed CommentsUnknownSex and Gender InformationValueDate RecordedSex Assigned at Not on fileLegal YeiVvtirz32/26/2022 8:15 AM ESTGender IdentityNot on fileSexual OrientationNot on file Plan of Treatment Not on file
--- OUTSIDE RECORDS SUMMARY | 2025-10-04 22:14 | XMS_ITS | Clinical Summary ---
Author Organization [facility] Address [address], [address] [place] [address] Care Team Providers Care Aluminum Molder Name Role Phone Angi Maciel MD Primary Care Provider [phone] Social History Tobacco UseTypesPacks/DayYears UsedDateSmoking Tobacco: Never Assessed CommentsUnknownSex and Gender InformationValueDate RecordedSex Assigned at Not on fileLegal EieBfaphb71/19/2021 8:39 AM ESTGender IdentityNot on fileSexual OrientationNot on file Plan of Treatment Not on file Insurance Care Teams Team MemberRelationshipSpecialtyStart DateEnd Date Angi Maciel MD PCP - GeneralFamily Medicine11/10/20
[2025-10-04 22:25] LABS: Anion Gap 15.9; Blood Urea Nitrogen 9.0 mg/dL (7.0-18.0); Calcium 9.4 mg/dL (8.5-10.1); Carbon Dioxide 27.9 mmol/L (21.0-32.0); Chloride 101 mmol/L (98-107); Estimated GFR (African America >60 (>=60 mL/min/1.73m^2); Estimated GFR (Non-African Ame >60 (>=60 mL/min/1.73m^2); Glucose 117 mg/dL (74-106); Sodium 142 mmol/L (136-145)
[2025-10-04 22:37] LABS: Potassium 2.8 mmol/L (3.5-5.1)
[2025-10-04] MEDS: POTASSIUM BICARBONATE/CIT 25 MEQ TABLET EFF 50 MEQ PO (23:31)
== END 2025-10-04 23:39 | disposition home or self-care (01) ==
PROVIDERS: Emergency Provider Student in an Organized Health Care Education/Training Program; PCP Family Medicine
DX: S06.9X1A Unspecified intracranial injury with loss of consciousness of 30 minutes or less, initial encounter (principal); W08.XXXA Fall from other furniture, initial encounter; S01.01XA Laceration without foreign body of scalp, initial encounter
CPT/HCPCS: 12001; 36415; 70450; 72125; 76376; 80048; 84484; 85025; 93005; 99284